=== PATIENT | female | born 1935 | race Caucasian/White ===

== ENCOUNTER 2019-11-19 18:16 | Outpatient (CLI) | payer MEDICARE, SELFPAY ==
--- NOTE | ~2019-11-19 | XR_ITS ---
EXAMINATION: XR foot RT min 3V DATE: 11/19/2019 18:51 INDICATION: Right foot pain TECHNIQUE: Dorsoplantar, lateral, and 2 oblique views of the right foot were obtained. COMPARISON: None. FINDINGS: The bones are osteopenic which limits sensitivity for fracture. 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 Mild osteoarthritis is seen at the first metatarsophalangeal joint as well as in multiple interphalangeal joints. A plantar calcaneal enthesophyte is noted. IMPRESSION: 1. Possible nondisplaced fracture of the first distal phalanx, sensitivity limited by osteopenia. Reviewed, dictated and finalized at location A. PER/RECEIVER IMPRESSION: 1. Possible nondisplaced fracture of the first distal phalanx, sensitivity limi celena by osteopenia.
== END 2019-11-19 18:17 | disposition home or self-care (01) ==
PROVIDERS: PCP Internal Medicine; Visit Provider Internal Medicine
DX: M79.674 Pain in right toe(s) (principal)
CPT/HCPCS: 73630

== ENCOUNTER 2020-03-18 15:11 | Outpatient (CLI) | payer MEDICARE, SELFPAY ==
--- NOTE | 2020-03-18 15:30 | ECG_ITS ---
Measurements Intervals [place] Rate: 100 P: [place]: 0 QRS: -2 QRSD: 93 T: 28 QT: 335 QTc: 432 Interpretive Statements ATRIAL FIBRILLATION WITH RAPID VENTRICULAR RESPONSE LOW QRS VOLTAGE IN PRECORDIAL LEADS INCOMPLETE RIGHT BUNDLE BRANCH BLOCK BORDERLINE R WAVE PROGRESSION, ANTERIOR LEADS MINIMAL Q WAVES- INFERIOR LEADS ABNORMAL ECG Electronically Signed On 03-18-2020 15:52:20 CDT by Rui Garcia D.O.
== END 2020-03-18 15:12 | disposition home or self-care (01) ==
LOC: CHSCARD 15:14
PROVIDERS: PCP Internal Medicine; Visit Provider Internal Medicine Cardiovascular Disease
DX: Z51.81 Encounter for therapeutic drug level monitoring (principal)
CPT/HCPCS: 93005

== ENCOUNTER 2020-04-16 12:32 | Outpatient (CLI) | payer MEDICARE, SELFPAY ==
--- NOTE | 2020-04-16 12:50 | ECG_ITS ---
Measurements Intervals [place] Rate: 100 P: [place]: 0 QRS: 22 QRSD: 89 T: 17 QT: 350 QTc: 452 Interpretive Statements ATRIAL FIBRILLATION WITH RAPID VENTRICULAR RESPONSE RSR' IN V1 OR V2, CONSIDER RIGHT VENTRICULAR HYPERTROPHY OR RIGHT VCD LOW QRS VOLTAGE IN PRECORDIAL LEADS BORDERLINE R WAVE PROGRESSION, ANTERIOR LEADS BASELINE ARTIFACT- III, AVF ABNORMAL ECG Electronically Signed On 04-16-2020 12:58:18 CDT by Rui Garcia D.O.
== END 2020-04-16 12:33 | disposition home or self-care (01) ==
LOC: CHSCARD 12:35
PROVIDERS: PCP Internal Medicine; Visit Provider Internal Medicine Cardiovascular Disease
DX: I48.19 Other persistent atrial fibrillation (principal)
CPT/HCPCS: 93005

== ENCOUNTER 2020-07-26 10:48 | Outpatient (NON) | payer MEDICARE, SELFPAY ==
[2020-07-26 11:20] LABS: Hematocrit 37.2 % (35.0-42.0); Mean Corpuscular HGB Conc 32.3 g/dL (32.0-36.0); Mean Corpuscular Hemoglobin 29.6 pg (27.0-31.0); Mean Corpuscular Volume 91.9 fL (78.0-102.0); Mean Platelet Volume 11.1 fl (9.2-11.8); Platelet Count Result 134 K/mm3 (150-420); Red Blood Count 4.05 M/mm3 (4.20-5.40); Red Cell Distribution Width 14.1 % (11.6-14.4); White Blood Count 3.6 K/mm3 (4.8-10.8)
[2020-07-26 11:37] LABS: Alanine Aminotransferase 49 U/L (14-59); Albumin Level 3.4 g/dL (3.4-5.0); Alkaline Phosphatase 117 U/L (46-116); Anion Gap 9 mmol/L (8-16); Aspartate Amino Transferase 36 U/L (15-37); Bilirubin,Total 0.7 mg/dL (0.00-1.00); Blood Urea Nitrogen 25 mg/dL (7-18); Calcium 9.1 mg/dL (8.5-10.1); Carbon Dioxide 27 mmol/L (21-32); Chloride 107 mmol/L (98-108); Estimated Glomerular Filt Rate > 60; Glucose 93 mg/dL (70-99); Osmolality Calculated 300 mOsm/kg (285-295); Potassium 4.2 mmol/L (3.5-5.1); Sodium 143 mmol/L (136-145); Total Protein 6.1 g/dL (6.4-8.2)
[2020-07-26 11:45] LABS: BNP 207 pg/mL (0-100)
[2020-07-26 12:18] LABS: Band Neutrophils Percent 1 % (0-6); Basophils Percent Manual 0 % (0-1); Eosinophils Percent Manual 3 % (1-6); Lymphocytes Absolute Manual 0.64 K/mm3 (1.1-4.5); Lymphocytes Percent Manual 18 % (18-44); Monocytes Absolute Manual 0.21 K/mm3 (0.1-0.90); Monocytes Percent Manual 6 % (3-9); Neutrophils Absolute Manual 2.62 K/mm3 (1.7-7.2); Neutrophils Percent Manual 72 % (46-73); Platelet Estimate Adequate (Adequate); Total Cells Counted 100
== END 2020-07-26 10:49 ==
LOC: CHSLAB 10:49
PROVIDERS: Visit Provider Internal Medicine
DX: I50.9 Heart failure, unspecified (principal); D64.9 Anemia, unspecified; R94.5 Abnormal results of liver function studies
CPT/HCPCS: 36415; 80053; 83880; 85025; 85055

== ENCOUNTER 2021-02-07 09:16 | Outpatient (NON) | payer MEDICARE, SELFPAY ==
[2021-02-07 09:55] LABS: Basophils Absolute Auto 0.01 K/mm3 (0.00-0.10); Basophils Percent Auto 0.2 % (0.0-1.0); Eosinophils Absolute Auto 0.15 K/mm3 (0.02-0.50); Eosinophils Percent Auto 2.9 % (1.0-6.0); Hematocrit 38.9 % (35.0-42.0); Hemoglobin 12.8 g/dL (11.7-13.8); Immature Granulocyte Absolute 0.01 K/mm3 (0.00-0.00); Immature Granulocyte Percent A 0.2 % (0.0-0.0); Lymphocytes Absolute Auto 1.11 K/mm3 (1.10-4.50); Lymphocytes Percent Auto 21.8 % (18.0-42.0); Mean Corpuscular HGB Conc 32.9 g/dL (32.0-36.0); Mean Corpuscular Hemoglobin 30.7 pg (27.0-31.0); Mean Corpuscular Volume 93.3 fL (78.0-102.0); Mean Platelet Volume 12.2 fl (9.2-11.8); Monocytes Absolute Auto 0.57 K/mm3 (0.10-0.90); Monocytes Percent Auto 11.2 % (2.0-11.0); Neutrophils Absolute Auto 3.3 K/mm3 (1.7-7.2); Neutrophils Percent Auto 63.7 % (50.0-70.0); Platelet Count Result 129 K/mm3 (150-420); Red Blood Count 4.17 M/mm3 (4.20-5.40); White Blood Count 5.1 K/mm3 (4.8-10.8)
[2021-02-07 10:28] LABS: Alanine Aminotransferase 27 U/L (14-59); Albumin Level 3.3 g/dL (3.4-5.0); Alkaline Phosphatase 89 U/L (46-116); Anion Gap 6 mmol/L (8-16); Aspartate Amino Transferase 18 U/L (15-37); Bilirubin,Total 0.7 mg/dL (0.00-1.00); Blood Urea Nitrogen 28 mg/dL (7-18); Calcium 8.9 mg/dL (8.5-10.1); Carbon Dioxide 28 mmol/L (21-32); Chloride 103 mmol/L (98-108); Digoxin 0.5 ng/mL (0.9-2.0); Estimated Glomerular Filt Rate > 60; Glucose 78 mg/dL (70-99); NT Pro B Type Natriuretic Pept 921 pg/mL (0-450); Osmolality Calculated 288 mOsm/kg (285-295); Phosphorus 3.3 mg/dL (2.6-4.7); Potassium 3.5 mmol/L (3.5-5.1); Sodium 137 mmol/L (136-145)
== END 2021-02-07 09:17 | disposition home or self-care (01) ==
LOC: CHSLAB 09:17
PROVIDERS: PCP Internal Medicine; Visit Provider Internal Medicine
DX: I48.20 Chronic atrial fibrillation, unspecified (principal); I11.0 Hypertensive heart disease with heart failure; I50.9 Heart failure, unspecified; D64.9 Anemia, unspecified
CPT/HCPCS: 36415; 80053; 80162; 83735; 83880; 84100; 85025

== ENCOUNTER 2021-02-21 13:31 | Outpatient (CLI) | payer MEDICARE, SELFPAY ==
--- NOTE | ~2021-02-21 | DEXA_ITS ---
Bone Density Report Name: Doreen Hedrick Age: 85 Sex: Female Ethnicity: White Date of : 1935 Indication: postmenopausal; screening for osteoporosis; height loss; prior fracture; hysterectomy; Referring Provider: Mina Dillard Study: Bone densitometry was performed. Exam Date: February 21, 2021 Accession number: [id number] Bone Density: Region BMD T-score Z-score Classification AP Spine(L1, L2) 0.871 -1.0 1.7 Normal Femoral Neck (Left) 0.440 -3.7 -1.2 Osteoporosis Total Hip (Left) 0.496 -3.7 -1.3 Osteoporosis World Health Organization criteria for BMD impression classify patients as: Normal (T-score at or above -1.0), Osteopenia (T-score between -1.0 and -2.5), or Osteoporosis (T-score at or below -2.5). 10-year Fracture Risk: FRAX not reported because: Some T-score for Spine Total or Hip Total or Femoral Neck at or below -2.5 Prior hip or vertebral fracture Clinical Information Provided by Patient: Have had a previous hip or vertebral fracture Has had a low trauma fracture Has used the following medications: Calcium Has the following medical conditions: Hysterectomy Patient maximum height was 69 Menopause Age: 49 No regular weight bearing exercise Does not regularly consume dairy products Drinks caffeinated beverages Onset of menses at age 9 Number of children 1 Impression: The patient has established osteoporosis, based on the Left Total Hip T-score and the existence of a prior fracture. The patient has risk factors, including: previous fracture. Discussion: HIGH RISK OF FRACTURE. BONE DENSITY IS UNDESIRABLY LOW AT ONE OR MORE SKELETAL SITES, CONSISTENT WITH POSTMENOPAUSAL OSTEOPOROSIS. This patient's lowest T-score, in a patient who has previously fractured, meets the World Health Organization's (WHO) criteria for severe osteoporosis. In untreated patients, the risk of osteoporotic fracture increases approximately two-fold for each 1.0 SD decrease in T-score. Low bone density is not the only risk factor for fracture; also consider factors such as patient's age, frailty or poor health, risk of falling, risk of injury, previous osteoporotic fracture, family history of osteoporosis, cigarette smoking, low body weight, etc. Not everyone with low bone mineral density has osteoporosis; osteomalacia and other metabolic bone disorders should also be considered. Patients who have osteoporosis should be evaluated for specific diseases and conditions (secondary causes) that may cause or contribute to bone loss. The [place] [employer] Endocrinologists (AACE) and National Osteoporosis Foundation (NOF) recommend pharmacologic intervention for all postmenopausal women with a previous hip or vertebral fracture and a T-score in this range. The patient should follow a healthful lifestyle (good nutrition with adequate calcium and vitamin D, an
== END 2021-02-21 13:32 | disposition home or self-care (01) ==
LOC: CHSIMG 13:33
PROVIDERS: PCP Internal Medicine; Visit Provider Internal Medicine
DX: Z78.0 Asymptomatic menopausal state (principal)
CPT/HCPCS: 77080

== ENCOUNTER 2021-04-14 14:07 | Outpatient (CLI) | payer MEDICARE, SELFPAY ==
[2021-04-14 14:35] VITALS: BP 148/67; PULSE 71; RESP 16; TEMP 36.8; O2SAT 95; BMI 24.1
[2021-04-14] MEDS: DENOSUMAB 60 MG/ML SYRINGE SUB-Q (14:39)
--- NOTE | 2021-04-14 14:54 | PC.NURSE ---
[id number] Patient here for 1st Prolia injection. Reviewed purpose and side effects of Prolia. Education sheets given to patient. Prolia 60mg given SQ left upper posterior arm. Patient tolerated well. Patient waited 15 minutes after injection for possible side effects. No side effects noted. No redness or warmth at injection site. Patient denies any side effects. Patient safely left OP treatment area via wheelchair in the care of her personalization specialist.
== END 2021-04-14 14:08 | disposition home or self-care (01) ==
LOC: CHSTREATRM 14:11
PROVIDERS: PCP Internal Medicine; Visit Provider Internal Medicine
DX: M81.0 Age-related osteoporosis without current pathological fracture (principal)
CPT/HCPCS: 96372; J0897

== ENCOUNTER 2021-08-10 09:51 | Outpatient (NON) | payer MEDICARE, SELFPAY ==
[2021-08-10 10:12] LABS: Basophils Absolute Auto 0.03 K/mm3 (0.00-0.10); Basophils Percent Auto 0.6 % (0.0-1.0); Eosinophils Absolute Auto 0.41 K/mm3 (0.02-0.50); Eosinophils Percent Auto 7.6 % (1.0-6.0); Hematocrit 45.1 % (35.0-42.0); Hemoglobin 14.7 g/dL (11.7-13.8); Immature Granulocyte Absolute 0.02 K/mm3 (0.00-0.00); Immature Granulocyte Percent A 0.4 % (0.0-0.0); Lymphocytes Absolute Auto 1.22 K/mm3 (1.10-4.50); Lymphocytes Percent Auto 22.6 % (18.0-42.0); Mean Corpuscular HGB Conc 32.6 g/dL (32.0-36.0); Mean Corpuscular Hemoglobin 29.9 pg (27.0-31.0); Mean Corpuscular Volume 91.7 fL (78.0-102.0); Mean Platelet Volume 11.8 fl (9.2-11.8); Monocytes Absolute Auto 0.58 K/mm3 (0.10-0.90); Monocytes Percent Auto 10.7 % (2.0-11.0); Neutrophils Absolute Auto 3.2 K/mm3 (1.7-7.2); Neutrophils Percent Auto 58.1 % (50.0-70.0); Platelet Count Result 159 K/mm3 (150-420); Red Blood Count 4.92 M/mm3 (4.20-5.40); Red Cell Distribution Width 14.2 % (11.6-14.4); White Blood Count 5.4 K/mm3 (4.8-10.8)
[2021-08-10 10:33] LABS: Alanine Aminotransferase 33 U/L (14-59); Albumin Level 3.7 g/dL (3.4-5.0); Alkaline Phosphatase 75 U/L (46-116); Anion Gap 11 mmol/L (8-16); Aspartate Amino Transferase 19 U/L (15-37); Bilirubin,Total 0.8 mg/dL (0.00-1.00); Blood Urea Nitrogen 24 mg/dL (7-18); Calcium 8.2 mg/dL (8.5-10.1); Carbon Dioxide 27 mmol/L (21-32); Chloride 106 mmol/L (98-108); Digoxin 0.6 ng/mL (0.9-2.0); Estimated Glomerular Filt Rate 60; Glucose 120 mg/dL (70-99); NT Pro B Type Natriuretic Pept 970 pg/mL (0-450); Osmolality Calculated 303 mOsm/kg (285-295); Potassium 4.4 mmol/L (3.5-5.1); Sodium 144 mmol/L (136-145); Total Protein 7.3 g/dL (6.4-8.2)
== END 2021-08-10 09:52 | disposition home or self-care (01) ==
LOC: CHSLAB 09:54
PROVIDERS: Visit Provider Internal Medicine
DX: I11.0 Hypertensive heart disease with heart failure (principal); I50.9 Heart failure, unspecified
CPT/HCPCS: 80053; 80162; 83880; 85025

== ENCOUNTER 2022-02-14 11:54 | Outpatient (CLI) | payer MEDICARE, SELFPAY ==
[2022-02-14 12:32] LABS: Alanine Aminotransferase 17 U/L (6-35); Alkaline Phosphatase 88 U/L (38-126); Anion Gap 7 mmol/L (8-16); Aspartate Amino Transferase 27 U/L (14-36); Bilirubin,Total 1.3 mg/dL (0.2-1.3); Blood Urea Nitrogen 30 mg/dL (7-17); Calcium 9.1 mg/dL (8.4-10.2); Carbon Dioxide 25 mmol/L (22-30); Chloride 107 mmol/L (98-107); Estimated Glomerular Filt Rate > 60; Glucose 107 mg/dL (65-110); Potassium 3.9 mmol/L (3.4-5.0); Sodium 139 mmol/L (137-145)
[2022-02-14 12:34] LABS: Hematocrit 36.9 % (37.0-47.0); Hemoglobin 12.1 g/dL (12.0-15.0); Mean Corpuscular HGB Conc 32.8 g/dl (32-36); Mean Corpuscular Hemoglobin 28.2 pg (26-34); Mean Platelet Volume 10.3 fl (7.4-10.4); Platelet Count Result 249 k/mm3 (150-375); Red Blood Count 4.29 M/mm3 (4.2-5.4); Red Cell Distribution Width 12.6 % (11.5-14.5); White Blood Count 4.2 K/mm3 (4.5-10.0)
[2022-02-14 13:26] LABS: Digoxin 0.6 ng/mL (0.8-2.0)
== END 2022-02-14 11:55 | disposition home or self-care (01) ==
LOC: ANHLAB 12:01
PROVIDERS: PCP Internal Medicine; Visit Provider Internal Medicine Cardiovascular Disease
DX: I48.11 Longstanding persistent atrial fibrillation (principal); Z79.01 Long term (current) use of anticoagulants; Z51.81 Encounter for therapeutic drug level monitoring
CPT/HCPCS: 36415; 80053; 80162; 85025; 85027

== ENCOUNTER 2022-04-06 09:51 | Outpatient (CLI) | payer MEDICARE, SELFPAY ==
[2022-04-06] MEDS: DENOSUMAB 60 MG/ML SYRINGE SUB-Q (10:08)
== END 2022-04-06 09:52 | disposition home or self-care (01) ==
LOC: CHSTREATRM 09:54
PROVIDERS: PCP Internal Medicine; Visit Provider Internal Medicine
DX: M81.0 Age-related osteoporosis without current pathological fracture (principal)
CPT/HCPCS: 96372; J0897

== ENCOUNTER 2022-09-18 10:23 | Outpatient (NON) | payer MEDICARE, SELFPAY ==
[2022-09-18 10:58] LABS: Basophils Absolute Auto 0.02 K/mm3 (0.00-0.10); Basophils Percent Auto 0.3 % (0.0-1.0); Eosinophils Absolute Auto 0.32 K/mm3 (0.02-0.50); Eosinophils Percent Auto 5.1 % (1.0-6.0); Hematocrit 40.2 % (35.0-42.0); Hemoglobin 13.3 g/dL (11.7-13.8); Immature Granulocyte Absolute 0.02 K/mm3 (0.00-0.00); Immature Granulocyte Percent A 0.3 % (0.0-0.0); Lymphocytes Absolute Auto 1.09 K/mm3 (1.10-4.50); Lymphocytes Percent Auto 17.5 % (18.0-42.0); Mean Corpuscular HGB Conc 33.1 g/dL (32.0-36.0); Mean Corpuscular Hemoglobin 31.5 pg (27.0-31.0); Mean Corpuscular Volume 95.3 fL (78.0-102.0); Mean Platelet Volume 11.4 fl (9.2-11.8); Monocytes Absolute Auto 0.54 K/mm3 (0.10-0.90); Monocytes Percent Auto 8.7 % (2.0-11.0); Neutrophils Absolute Auto 4.3 K/mm3 (1.7-7.2); Neutrophils Percent Auto 68.1 % (50.0-70.0); Platelet Count Result 165 K/mm3 (150-420); Red Blood Count 4.22 M/mm3 (4.20-5.40); Red Cell Distribution Width 13.3 % (11.6-14.4); White Blood Count 6.2 K/mm3 (4.8-10.8)
[2022-09-18 11:16] LABS: Alanine Aminotransferase 30 U/L (14-59); Albumin Level 3.3 g/dL (3.4-5.0); Alkaline Phosphatase 81 U/L (46-116); Anion Gap 11 mmol/L (8-16); Aspartate Amino Transferase 20 U/L (15-37); Bilirubin,Total 0.6 mg/dL (0.00-1.00); Blood Urea Nitrogen 28 mg/dL (7-18); Calcium 8.3 mg/dL (8.5-10.1); Carbon Dioxide 26 mmol/L (21-32); Chloride 105 mmol/L (98-108); Digoxin 0.5 ng/mL (0.9-2.0); Estimated Glomerular Filt Rate > 60; Glucose 109 mg/dL (70-99); NT Pro B Type Natriuretic Pept 1101 pg/mL (0-450); Osmolality Calculated 300 mOsm/kg (285-295); Potassium 4.1 mmol/L (3.5-5.1); Sodium 142 mmol/L (136-145); Total Protein 6.3 g/dL (6.4-8.2)
== END 2022-09-18 10:24 | disposition home or self-care (01) ==
LOC: CHSLAB 10:29
PROVIDERS: Visit Provider Internal Medicine
DX: I50.9 Heart failure, unspecified (principal); Z79.899 Other long term (current) drug therapy
CPT/HCPCS: 80053; 80162; 83735; 83880; 85025

== ENCOUNTER 2022-11-09 11:39 | Outpatient (CLI) | payer MEDICARE, SELFPAY ==
[2022-11-09 11:50] VITALS: BMI 24.2
[2022-11-09 12:08] VITALS: BP 121/72; PULSE 68; RESP 14; O2SAT 98
[2022-11-09] MEDS: DENOSUMAB 60 MG/ML SYRINGE SUB-Q (12:08)
--- NOTE | 2022-11-09 12:10 | PC.NURSE ---
Patient here for q 6 month Prolia injection. Education given. Reports having no issues last few times she had this. Prolia injection administered. SEE MAR. Tolerated well. Safe exit of hospital per wc with family member. Will be notified in May 2023 to scheduled next Prolia injection.
== END 2022-11-09 11:40 | disposition home or self-care (01) ==
LOC: CHSTREATRM 11:43
PROVIDERS: PCP Internal Medicine; Visit Provider Internal Medicine
DX: M81.0 Age-related osteoporosis without current pathological fracture (principal)
CPT/HCPCS: 96372; J0897

== ENCOUNTER 2023-03-26 10:25 | Outpatient (NON) | payer MEDICARE, SELFPAY ==
[2023-03-26 11:10] LABS: Basophils Absolute Auto 0.02 K/mm3 (0.00-0.10); Basophils Percent Auto 0.5 % (0.0-1.0); Eosinophils Absolute Auto 0.13 K/mm3 (0.02-0.50); Eosinophils Percent Auto 2.9 % (1.0-6.0); Hematocrit 42.5 % (35.0-42.0); Hemoglobin 13.7 g/dL (11.7-13.8); Immature Granulocyte Absolute 0.01 K/mm3 (0.00-0.00); Immature Granulocyte Percent A 0.2 % (0.0-0.0); Lymphocytes Absolute Auto 1.01 K/mm3 (1.10-4.50); Lymphocytes Percent Auto 22.9 % (18.0-42.0); Mean Corpuscular HGB Conc 32.2 g/dL (32.0-36.0); Mean Corpuscular Hemoglobin 30.6 pg (27.0-31.0); Mean Corpuscular Volume 95.1 fL (78.0-102.0); Mean Platelet Volume 11.9 fl (9.2-11.8); Monocytes Absolute Auto 0.45 K/mm3 (0.10-0.90); Monocytes Percent Auto 10.2 % (2.0-11.0); Neutrophils Absolute Auto 2.8 K/mm3 (1.7-7.2); Neutrophils Percent Auto 63.3 % (50.0-70.0); Platelet Count Result 150 K/mm3 (150-420); Red Blood Count 4.47 M/mm3 (4.20-5.40); Red Cell Distribution Width 13.1 % (11.6-14.4); White Blood Count 4.4 K/mm3 (4.8-10.8)
[2023-03-26 11:42] LABS: Alanine Aminotransferase 30 U/L (14-59); Albumin Level 3.7 g/dL (3.4-5.0); Alkaline Phosphatase 71 U/L (46-116); Anion Gap 13 mmol/L (8-16); Aspartate Amino Transferase 21 U/L (15-37); Bilirubin,Total 0.8 mg/dL (0.00-1.00); Blood Urea Nitrogen 24 mg/dL (7-18); Calcium 8.8 mg/dL (8.5-10.1); Carbon Dioxide 25 mmol/L (21-32); Chloride 108 mmol/L (98-108); Digoxin 0.4 ng/mL (0.9-2.0); Estimated Glomerular Filt Rate > 60; Glucose 91 mg/dL (70-99); Magnesium 2.1 mg/dL (1.8-2.4); NT Pro B Type Natriuretic Pept 814 pg/mL (0-450); Osmolality Calculated 306 mOsm/kg (285-295); Phosphorus 3.2 mg/dL (2.6-4.7); Potassium 4.2 mmol/L (3.5-5.1); Sodium 146 mmol/L (136-145); Total Protein 6.6 g/dL (6.4-8.2)
== END 2023-03-26 10:26 | disposition home or self-care (01) ==
PROVIDERS: Visit Provider Internal Medicine
DX: I50.9 Heart failure, unspecified (principal); I10 Essential (primary) hypertension; I48.91 Unspecified atrial fibrillation
CPT/HCPCS: 80053; 80162; 83735; 83880; 84100; 85025

== ENCOUNTER 2023-09-13 09:31 | Outpatient (NON) | payer MEDICARE, SELFPAY ==
[2023-09-13 09:47] LABS: Appearance Urine Clear (Clear); Bilirubin Urine Negative (Negative); Blood Urine Negative (Negative); Color Urine Yellow (Yellow); Glucose Urine UA Negative (Negative); Ketones Urine Negative (Negative); Leukocyte Esterase Ur Negative LEU/UL (Negative); Nitrate Urine Positive (Negative); Protein Urine Negative (Negative); Specific Grav Ur >= 1.030 (1.010-1.020); Urobilinogen Urine 0.2 mg/dL (0.2-1.0); pH Urine 5.5 (5.0-8.0)
[2023-09-13 09:48] LABS: Basophils Absolute Auto 0.02 K/mm3 (0.00-0.10); Basophils Percent Auto 0.5 % (0.0-1.0); Eosinophils Absolute Auto 0.17 K/mm3 (0.02-0.50); Eosinophils Percent Auto 3.9 % (1.0-6.0); Hemoglobin 12.8 g/dL (11.7-13.8); Immature Granulocyte Absolute 0.02 K/mm3 (0.00-0.00); Immature Granulocyte Percent A 0.5 % (0.0-0.0); Immature Platelet Fraction Pct 5.7 % (1.0-7.0); Lymphocytes Absolute Auto 1.01 K/mm3 (1.10-4.50); Lymphocytes Percent Auto 23.4 % (18.0-42.0); Mean Corpuscular Hemoglobin 30.2 pg (27.0-31.0); Mean Corpuscular Volume 94.3 fL (78.0-102.0); Mean Platelet Volume 12.2 fl (9.2-11.8); Monocytes Absolute Auto 0.48 K/mm3 (0.10-0.90); Monocytes Percent Auto 11.1 % (2.0-11.0); Neutrophils Absolute Auto 2.6 K/mm3 (1.7-7.2); Neutrophils Percent Auto 60.6 % (50.0-70.0); Platelet Count Result 131 K/mm3 (150-420); Red Blood Count 4.24 M/mm3 (4.20-5.40); White Blood Count 4.3 K/mm3 (4.8-10.8)
[2023-09-13 09:55] LABS: Add Urine Microscopic? YES; Bacteria Urine 4+ /hpf; RBC Urine None seen /hpf (0-2); Squamous Epithelial Cell Urine Rare /hpf (Few); WBC Urine 0-5 /hpf (0-3)
[2023-09-13 10:17] LABS: Alanine Aminotransferase 34 U/L (14-59); Albumin Level 3.5 g/dL (3.4-5.0); Alkaline Phosphatase 88 U/L (46-116); Anion Gap 2 mmol/L (8-16); Aspartate Amino Transferase 39 U/L (15-37); Bilirubin,Total 0.6 mg/dL (0.00-1.00); Blood Urea Nitrogen 24 mg/dL (7-18); Carbon Dioxide 33 mmol/L (21-32); Chloride 102 mmol/L (98-108); Digoxin 0.5 ng/mL (0.9-2.0); Estimated Glomerular Filt Rate > 60; Glucose 93 mg/dL (70-99); Magnesium 2.2 mg/dL (1.8-2.4); NT Pro B Type Natriuretic Pept 1144 pg/mL (0-450); Osmolality Calculated 288 mOsm/kg (285-295); Phosphorus 3.8 mg/dL (2.6-4.7); Sodium 137 mmol/L (136-145); Total Protein 6.2 g/dL (6.4-8.2)
== END 2023-09-13 09:32 | disposition home or self-care (01) ==
LOC: CHSLAB 09:32
PROVIDERS: Visit Provider Internal Medicine
DX: I48.11 Longstanding persistent atrial fibrillation (principal); D64.9 Anemia, unspecified; I10 Essential (primary) hypertension; R82.90 Unspecified abnormal findings in urine; I50.9 Heart failure, unspecified
CPT/HCPCS: 36415; 80053; 80162; 81001; 83735; 83880; 84100; 85025; 85055; 87077; 87086; 87088; 87186

== ENCOUNTER 2023-09-18 11:17 | Outpatient (CLI) | payer MEDICARE, SELFPAY ==
[2023-09-18 11:25] VITALS: BMI 24.9
[2023-09-18 11:26] VITALS: BP 132/70; PULSE 68; RESP 14; TEMP 36.6; O2SAT 97
[2023-09-18] MEDS: DENOSUMAB 60 MG/ML SYRINGE SUB-Q (11:30)
--- NOTE | 2023-09-18 12:02 | PC.NURSE ---
Patient here for q 6 month Prolia injection. Education given. No concerns voiced. Prolia injection administered. SEE MAR. Safe exit of hospital per wc and dtr. Will Return 03/20/23 at 1100 for next injection.
== END 2023-09-18 11:18 | disposition home or self-care (01) ==
LOC: CHSTREATRM 11:19
PROVIDERS: PCP Internal Medicine; Visit Provider Internal Medicine
DX: M81.0 Age-related osteoporosis without current pathological fracture (principal)
CPT/HCPCS: 96372; J0897

== ENCOUNTER 2023-09-20 12:37 | Emergency (ER) | payer MEDICARE, SELFPAY ==
--- NOTE | ~2023-09-20 | CT_ITS ---
EXAMINATION: CT abdomen pelvis w con DATE: 09/20/2023 14:18 INDICATION: Upper abdominal pain. TECHNIQUE: Computed tomography (CT) of the abdomen and pelvis was performed with 100 mL Omnipaque 350 intravenous contrast. Automated exposure control and iterative reconstruction technique were employe d. The dose-length product was 702.49 mGy-cm. COMPARISON: None. FINDINGS: The visualized portions of the lung bases demonstrate mild atelectasis. No pleural effusion . Cardiomegaly is noted. There are coronary artery calcifications. No pericardial effusion. The liver , spleen, gallbladder, and adrenal glands are normal. There is an 8 mm cyst in the tail of the pancre as, likely benign. There is cortical thinning of the kidneys. There are cysts in the kidneys measurin g up to 2.3 cm on the left. There is a 12 mm mass in right kidney measuring soft tissue attenuation. 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 There is diver ticulosis of the colon without evidence of diverticulitis. The appendix is not visualized. There is c alcified atherosclerosis of the aorta and many of the other arteries. There are no pathologically enl arged lymph nodes. There is no free intraperitoneal fluid. There is a right hip arthroplasty. There a re changes of posterior fusion procedure at L4-L5. There is severe thoracic and lumbar spondylosis. T here are chronic burst fractures of T12 and L1. There is a chronic compression fracture of T11. IMPRESSION: 1. 12 mm right kidney mass, which may be a hemorrhagic cyst or less likely neoplasm. Consider abdomen CT or MRI without and with contrast. Reviewed, dictated and finalized at location A. UCER ARBORIST MANAGER IMPRESSION: 1. 12 mm right kidney mass, which may be a hemorrhagic cyst or less likely neop lasm. Consider abdomen CT or MRI without and with contrast.
[2023-09-20 12:37] VITALS: BP 164/80; PULSE 73; RESP 18; TEMP 36.6; O2SAT 98
--- NOTE | 2023-09-20 13:04 | ECG_ITS ---
Measurements Intervals [place] Rate: 75 P: [place]: 0 QRS: -8 QRSD: 82 T: -12 QT: 371 QTc: 415 Interpretive Statements ATRIAL FIBRILLATION LOW QRS VOLTAGE IN PRECORDIAL LEADS [QRS DEFLECTION < 1.0 mV IN CHEST LEADS] MINIMAL VOLTAGE CRITERIA FOR LVH, CONSIDER NORMAL VARIANT [MEETS CRITERIA IN ONE OF: R(aVL), S(V1), R(V5), R(V5/V6)+S(V1)] ANTERIOR MYOCARDIAL INFARCTION , OF INDETERMINATE AGE [40+ ms Q WAVE AND/OR ST/T ABNORMALITY IN V3/V4] INFERIOR MYOCARDIAL INFARCTION , OF INDETERMINATE AGE [40+ ms Q WAVE AND/OR ST/T ABNORMALITY IN II/aVF] ABNORMAL ECG COMPARED TO ECG 04/16/2020 12:51:41 MYOCARDIAL INFARCT FINDING NOW PRESENT Electronically Signed On 09-20-2023 14:11:18 ASSOCIATE DATA SCIENTIST by Timmy Carey M.D.
[2023-09-20 13:19] LABS: Basophils Absolute Auto 0.02 K/mm3 (0.00-0.10); Basophils Percent Auto 0.3 % (0.0-1.0); Eosinophils Absolute Auto 0.11 K/mm3 (0.02-0.50); Eosinophils Percent Auto 1.7 % (1.0-6.0); Hematocrit 40.6 % (35.0-42.0); Immature Granulocyte Absolute 0.03 K/mm3 (0.00-0.00); Immature Granulocyte Percent A 0.5 % (0.0-0.0); Immature Platelet Fraction Pct 4.6 % (1.0-7.0); Lymphocytes Absolute Auto 0.85 K/mm3 (1.10-4.50); Lymphocytes Percent Auto 13.2 % (18.0-42.0); Mean Corpuscular Hemoglobin 30.7 pg (27.0-31.0); Mean Platelet Volume 11.3 fl (9.2-11.8); Monocytes Absolute Auto 0.61 K/mm3 (0.10-0.90); Monocytes Percent Auto 9.5 % (2.0-11.0); Neutrophils Absolute Auto 4.8 K/mm3 (1.7-7.2); Neutrophils Percent Auto 74.8 % (50.0-70.0); Platelet Count Result 124 K/mm3 (150-420); Red Blood Count 4.23 M/mm3 (4.20-5.40); Red Cell Distribution Width 14.3 % (11.6-14.4); White Blood Count 6.4 K/mm3 (4.8-10.8)
[2023-09-20 13:31] LABS: INR 1.5; Partial Thromboplastin Time 58.7 SEC (23.90-30.70); Prothrombin Time 15.5 Seconds (9.50-12.10)
[2023-09-20] MEDS: KETOROLAC 30 MG/ML VIAL (*BKC) 15 MG IV PUSH (13:40)
[2023-09-20] MEDS: PANTOPRAZOLE SODIUM IV 40 MG VIAL 80 MG IV PUSH (13:41)
[2023-09-20 13:46] LABS: Alanine Aminotransferase 55 U/L (14-59); Albumin Level 3.5 g/dL (3.4-5.0); Alkaline Phosphatase 98 U/L (46-116); Anion Gap 5 mmol/L (8-16); Aspartate Amino Transferase 33 U/L (15-37); Bilirubin,Total 1.1 mg/dL (0.00-1.00); Blood Urea Nitrogen 28 mg/dL (7-18); CRP 2.5 mg/dL (0.0-0.9); Calcium 8.8 mg/dL (8.5-10.1); Carbon Dioxide 32 mmol/L (21-32); Chloride 102 mmol/L (98-108); Estimated CRCL calculation 42 ml/min; Estimated Glomerular Filt Rate > 60; Glucose 116 mg/dL (70-99); Lipase 49 U/L (16-77); Osmolality Calculated 294 mOsm/kg (285-295); Potassium 4.2 mmol/L (3.5-5.1); Sodium 139 mmol/L (136-145); Troponin I 12.4 ng/L (0.00-60.4)
[2023-09-20 13:57] LABS: NT Pro B Type Natriuretic Pept 1169 pg/mL (0-450)
[2023-09-20 13:57] LABS: Appearance Urine Clear (Clear); Bilirubin Urine Negative (Negative); Blood Urine Trace-Intact (Negative); Color Urine Yellow (Yellow); Glucose Urine UA Negative (Negative); Ketones Urine Negative (Negative); Leukocyte Esterase Ur Negative LEU/UL (Negative); Nitrate Urine Negative (Negative); Protein Urine Trace (Negative); Specific Grav Ur 1.015 (1.010-1.020); pH Urine 7.5 (5.0-8.0)
[2023-09-20 14:06] LABS: Add Urine Microscopic? YES; RBC Urine 0-2 /hpf (0-2); WBC Urine 0-3 /hpf (0-3)
[2023-09-20 14:07] LABS: Bacteria Urine 2+ /hpf; Squamous Epithelial Cell Urine Rare /hpf (Few)
--- NOTE | 2023-09-20 14:46 | ED.ABDPAIN ---
HPI - Abdominal Pain General Chief Complaint: Abdominal Pain Stated Complaint: epigastric pain Time Seen by Provider: 09/20/23 12:47 Source: patient Mode of arrival: ambulatory Limitations: no limitations History of Present Illness HPI narrative: this is a an 79-year-old female from the [facility] Living with history of atrial fibrillation and reflux has been having periumbilical and suprapubic abdominal pain as well as some epigastric discomfort with no flank pain does have dysuria with no hematuria no nausea or vomiting with no shortness of breath no chest pain. MD elicited complaint: abdominal pain Pertinent past history: none Onset (ago): day(s) Pain Consistency: intermittent Location: epigastric, periumbilical and suprapubic Severity: moderate Pain scale (0-10): 6 Quality: aching Radiation: none Migration to: no migration Exacerbating factors: nothing Relieving factors: nothing Related Data Home Medications Medication Instructions Recorded Confirmed carvedilol 25 mg tablet 12.5 mg PO Q12H 10/15/19 09/20/23 digoxin 125 mcg (0.125 mg) tablet 125 mcg PO DAILY 10/15/19 09/20/23 docusate sodium 100 mg capsule 100 mg PO DAILY 10/15/19 09/20/23 furosemide 40 mg tablet 40 mg PO QAM 10/15/19 09/20/23 lisinopril 2.5 mg tablet 2.5 mg PO DAILY 10/15/19 09/20/23 magnesium oxide 400 mg (241.3 mg 400 mg PO DAILY 10/15/19 09/20/23 magnesium) tablet (MagOx) potassium chloride 20 mEq/15 mL 10 meq PO DAILY 10/15/19 09/20/23 oral liquid acetaminophen 500 mg tablet 1,000 mg PO TID 09/20/23 09/20/23 dabigatran etexilate 150 mg 150 mg PO BID 09/20/23 09/20/23 capsule (Pradaxa) polysaccharide iron complex 150 mg 150 mg PO DAILY 09/20/23 09/20/23 iron capsule (iFerex 150) sodium di- and 1 tablet PO TID 09/20/23 09/20/23 monophosphate-potassium phos monobasic 250 mg tablet (Phospho-Peg Neutral) Allergies Allergy/AdvReac Type Severity Reaction Status Date / Time adhesive tape Allergy Mild hives Verified 09/20/23 13:29 Penicillins Allergy Unknown LEGS AND Verified 09/20/23 13:29 ARMS TURNED PURPLE Review of Systems Review of Systems: All systems reviewed & are unremarkable except as noted in HPI and below PMFSH Past Medical History Medical History Congestive heart failure Heart disease Hypertension Surgical History Surgical History History of section History of hip replacement (~06/2019) Right bipolar History of lumbar surgery fusion with instrumentation Social History Social History Living arrangements: senior living Occupation/Education: retired Exam Const: General: no acute distress Nutritional Appearance: well nourished Orientation/consciousness: patient oriented x3 Limitations: no limitations Neck: Neck: normal visual inspection, no lymphadenopathy and no meningeal signs Chest: Chest palpation & inspection: normal inspection of the chest Resp: Effort & Inspection: normal respiratory effort Auscultation: clear to auscultation bilaterally Cardio: Rate: regular rate Rhythm: regular rhythm GI: GI Palp: Yes Soft to palpation and Yes Tenderness to palpation present (GI) : General: Yes bladder normal to palpation and Yes no CVA tenderness Urinary Catheter: Urinary Catheter: patent and draining Back/Spine/Pelvis: Back: no CVA tenderness Skin: General skin exam: normal color Rashes: no rashes Extrem: General: normal to inspection Psych: Mental Status: mental status grossly normal Course Course Emergency Course: Labs reviewed with patient and white count is within normal limits patient liver function tests within normal limits, patient received a CT scan which shows that there is 12mm mass that is needs to be investigated with an MRI. Otherwise patient continues to have s
[2023-09-20 15:27] VITALS: BP 148/81; PULSE 82; RESP 20; TEMP 36.7; O2SAT 98
== END 2023-09-20 15:29 | disposition home or self-care (01) ==
PROVIDERS: Emergency Provider Emergency Medicine; PCP Internal Medicine
DX: N39.0 Urinary tract infection, site not specified (principal); R10.33 Periumbilical pain; I48.91 Unspecified atrial fibrillation; I11.0 Hypertensive heart disease with heart failure; I50.9 Heart failure, unspecified; Z79.899 Other long term (current) drug therapy
CPT/HCPCS: 36415; 74177; 80053; 81001; 83605; 83690; 83880; 84484; 85025; 85055; 85610; 85730; 86140; 93005; 96374; 96375; 99284; C9113; J1885; Q9967

== ENCOUNTER 2023-09-24 02:44 | Emergency (ER) | payer MEDICARE, SELFPAY ==
--- NOTE | ~2023-09-24 | CT_ITS ---
CT of the Abdomen and Pelvis: Indication: Abdominal Technique: 2.5 mm axial scans were obtained through the abdomen and pelvis prior to and following fo llowing intravenous administration of 100 cc of Omnipaque 350. Dose reduction technique was used on t his scan by utilizing automated exposure control and iterative reconstruction technique. The dose-srikanth gth product (DLP) was 1495.82 mGy-cm. COMPARISON: 09/20/2023 Findings: Scans through the lung bases demonstrate minimal right pleural effusion with bibasilar sca rring or atelectasis. The liver, spleen, pancreas, gallbladder, and adrenal glands are within normal limits. Small bilatera l renal cysts are present, including small hyperdense cysts. There are atherosclerotic calcifications of the aorta. No lymphadenopathy. No bowel obstruction or bowel wall thickening. There is no evidence to suggest acute appendicitis. Images through the pelvis are degraded by streak artifact from right hip arthroplasty. Urinary bladde r grossly unremarkable. No definite pelvic mass seen. No ascites. Stable compression fractures of T11 , T12, and L1. Impression: Small hyperdense renal cysts. Stable compression fractures of T11, T12, L1. Reviewed, dictated and finalized at location . NTORY CHECKER Impression: Small hyperdense renal cysts. Stable compression fractures of T11, T12, L1.
--- NOTE | ~2023-09-24 | XR_ITS ---
Clinical Indication: Epigastric pain PA and lateral views of the chest: Comparison: 06/20/2019 Findings: There is probable linear bibasilar scarring or atelectasis. No pleural effusion or pneumoth orax. Cardiomediastinal silhouette is stable. Compression fracture of T7, T8, and T12 are present. Impression: Linear bibasilar scarring or atelectasis. Compression fractures of T7, T8, and T12. Reviewed, dictated and finalized at location . DRIVER Impression: Linear bibasilar scarring or atelectasis. Compression fractures of T7, T8, and T12.
[2023-09-24 02:45] VITALS: BP 168/92; PULSE 75; RESP 18; TEMP 36.8; O2SAT 94
--- NOTE | 2023-09-24 02:50 | ED.ABDPAIN ---
HPI - Abdominal Pain General Chief Complaint: Abdominal Pain Stated Complaint: ABD Pain Time Seen by Provider: 09/24/23 02:46 History of Present Illness HPI narrative: Patient is an 87 year old female with history of CHF, HTN, afib on pradaxa here with abdominal pain. Patient notes that on Sunday (6 days ago) she went to her PCPs office where they provided her with the COVID, Influenza and RSV vaccines. Daughter notes that 2 days later she began having significant epigastric abdominal pains. These abdominal pains prompted her to visit the ER. Workup was largely unremarkable here and she was started on treatment for a suspected UTI as well as pain medication. She notes some continued pain since that time which worsened to its maximum around 2 am today. She continues to state pain is around epigastric region to the periumbilical region and wraps around to bilateral flanks. She denies any associated nausea or vomiting. She is unsure of how her bowel movements have been, believes she may have had one yesterday which was small in consistency. She has been taking her prescribe Percocet consistently since discharge and it has not been helping, this medication has ran out. She does not believe she has had a fever. She denies dysuria at this time. Denies cough, congestion, shortness of breath, chest pain. Related Data Home Medications Medication Instructions Recorded Confirmed carvedilol 25 mg tablet 12.5 mg PO Q12H 10/15/19 09/20/23 digoxin 125 mcg (0.125 mg) tablet 125 mcg PO DAILY 10/15/19 09/20/23 docusate sodium 100 mg capsule 100 mg PO DAILY 10/15/19 09/20/23 furosemide 40 mg tablet 40 mg PO QAM 10/15/19 09/20/23 lisinopril 2.5 mg tablet 2.5 mg PO DAILY 10/15/19 09/20/23 magnesium oxide 400 mg (241.3 mg 400 mg PO DAILY 10/15/19 09/20/23 magnesium) tablet (MagOx) potassium chloride 20 mEq/15 mL 10 meq PO DAILY 10/15/19 09/20/23 oral liquid acetaminophen 500 mg tablet 1,000 mg PO TID 09/20/23 09/20/23 dabigatran etexilate 150 mg 150 mg PO BID 09/20/23 09/20/23 capsule (Pradaxa) polysaccharide iron complex 150 mg 150 mg PO DAILY 09/20/23 09/20/23 iron capsule (iFerex 150) sodium di- and 1 tablet PO TID 09/20/23 09/20/23 monophosphate-potassium phos monobasic 250 mg tablet (Phospho-Peg Neutral) Allergies Allergy/AdvReac Type Severity Reaction Status Date / Time adhesive tape Allergy Mild hives Verified 09/24/23 02:52 Penicillins Allergy Unknown LEGS AND Verified 09/24/23 02:52 ARMS TURNED PURPLE Review of Systems Review of Systems: All systems reviewed & are unremarkable except as noted in HPI and below PMFSH Past Medical History Medical History Congestive heart failure Heart disease Hypertension Surgical History Surgical History History of section History of hip replacement (~06/2019) Right bipolar History of lumbar surgery fusion with instrumentation Social History Social History Living arrangements: residential Occupation/Education: retired Exam Narrative: GENERAL: Well-appearing, well-nourished, and in no acute distress. HEAD: Normocephalic, atraumatic. EYES: PERRLA and EOMI. ENT: Nares clear. Mucous membranes moist. NECK: Supple. CHEST: Clear to auscultation. No respiratory distress. HEART: Regular rate and rhythm. Normal peripheral pulses. ABDOMEN: Soft, diffusely tender in the upper abdomen without rebound or guarding, nondistended. EXTREMITIES: Normal range of motion. No edema. SKIN: Warm, dry, no rash. NEURO: No focal deficits. Alert and oriented x3. PSYCH: Normal mood and affect. Course Course Emergency Course: Chart review performed. Patient here for abdominal pain. She appears to have been seen on 09/20/23 for abdominal pain. They note history of afib, CHF, HTN and acid reflux
--- NOTE | 2023-09-24 02:53 | ECG_ITS ---
Measurements Intervals [place] Rate: 70 P: [place]: 0 QRS: -17 QRSD: 70 T: -11 QT: 384 QTc: 414 Interpretive Statements ATRIAL FIBRILLATION BASELINE ARTIFACT LOW QRS VOLTAGE IN PRECORDIAL LEADS [QRS DEFLECTION < 1.0 mV IN CHEST LEADS] INFERIOR MYOCARDIAL INFARCTION , OF INDETERMINATE AGE [40+ ms Q WAVE AND/OR ST/T ABNORMALITY IN II/aVF] PROBABLE ANTEROSEPTAL MYOCARDIAL INFARCTION , OF INDETERMINATE AGE [35 ms Q WAVE IN V1- V4] ABNORMAL ECG COMPARED TO ECG 09/20/2023 13:36:44 NO SIGNIFICANT CHANGES Electronically Signed On 09-24-2023 17:04:30 VARSITY BASEBALL COACH by Yvon Lee M.D.
[2023-09-24] MEDS: MORPHINE SULFATE (*CRX) 4 MG/ML INJ IV PUSH (03:23)
[2023-09-24] MEDS: ONDANSETRON INJ 4 MG/2 ML VIAL IV PUSH (03:23)
[2023-09-24 03:39] LABS: Basophils Absolute Auto 0.01 K/mm3 (0.00-0.10); Basophils Percent Auto 0.2 % (0.0-1.0); Eosinophils Absolute Auto 0.13 K/mm3 (0.02-0.50); Eosinophils Percent Auto 2.3 % (1.0-6.0); Hematocrit 37.3 % (35.0-42.0); Hemoglobin 12.1 g/dL (11.7-13.8); Immature Granulocyte Absolute 0.03 K/mm3 (0.00-0.00); Immature Granulocyte Percent A 0.5 % (0.0-0.0); Immature Platelet Fraction Pct 4.2 % (1.0-7.0); Lymphocytes Absolute Auto 0.63 K/mm3 (1.10-4.50); Lymphocytes Percent Auto 11.1 % (18.0-42.0); Mean Corpuscular HGB Conc 32.4 g/dL (32.0-36.0); Mean Corpuscular Hemoglobin 30.8 pg (27.0-31.0); Mean Corpuscular Volume 94.9 fL (78.0-102.0); Mean Platelet Volume 11.4 fl (9.2-11.8); Monocytes Absolute Auto 0.68 K/mm3 (0.10-0.90); Neutrophils Absolute Auto 4.2 K/mm3 (1.7-7.2); Neutrophils Percent Auto 73.9 % (50.0-70.0); Platelet Count Result 110 K/mm3 (150-420); Red Blood Count 3.93 M/mm3 (4.20-5.40); Red Cell Distribution Width 13.9 % (11.6-14.4); White Blood Count 5.7 K/mm3 (4.8-10.8)
[2023-09-24 03:54] LABS: INR 1.4; Partial Thromboplastin Time 68.3 SEC (23.90-30.70); Prothrombin Time 15.3 Seconds (9.50-12.10)
[2023-09-24 03:57] LABS: Lactic Acid Reflex 1.3 mmol/L (0.4-2.0)
[2023-09-24 04:01] LABS: Appearance Urine Clear (Clear); Bilirubin Urine Negative (Negative); Blood Urine Trace-Intact (Negative); Color Urine Yellow (Yellow); Glucose Urine UA Negative (Negative); Ketones Urine Negative (Negative); Leukocyte Esterase Ur Negative LEU/UL (Negative); Nitrate Urine Negative (Negative); Protein Urine Negative (Negative); Specific Grav Ur 1.015 (1.010-1.020); pH Urine 6.5 (5.0-8.0)
[2023-09-24 04:02] LABS: Alanine Aminotransferase 67 U/L (14-59); Albumin Level 3.4 g/dL (3.4-5.0); Alkaline Phosphatase 109 U/L (46-116); Anion Gap 7 mmol/L (8-16); Aspartate Amino Transferase 49 U/L (15-37); Blood Urea Nitrogen 15 mg/dL (7-18); CRP 4.7 mg/dL (0.0-0.9); Calcium 7.6 mg/dL (8.5-10.1); Carbon Dioxide 27 mmol/L (21-32); Chloride 101 mmol/L (98-108); Estimated CRCL calculation 41 ml/min; Estimated Glomerular Filt Rate > 60; Glucose 122 mg/dL (70-99); Lipase 32 U/L (16-77); Magnesium 2.3 mg/dL (1.8-2.4); NT Pro B Type Natriuretic Pept 2036 pg/mL (0-450); Osmolality Calculated 281 mOsm/kg (285-295); Potassium 3.5 mmol/L (3.5-5.1); Sodium 135 mmol/L (136-145); Total Protein 6.7 g/dL (6.4-8.2); Troponin I 13.2 ng/L (0.00-60.4)
[2023-09-24] MEDS: PANTOPRAZOLE SODIUM IV 40 MG VIAL IV PUSH (04:03)
[2023-09-24] MEDS: KETOROLAC 15 MG/ML VIAL (*BKC) IV PUSH (04:03)
[2023-09-24 04:14] LABS: Add Urine Microscopic? YES; RBC Urine 0-2 /hpf (0-2); SARS-CoV-2 RNA PCR Negative (Negative)
[2023-09-24 04:15] LABS: Mucus Urine Few /lpf
[2023-09-24 04:16] LABS: Influenza A QL RT-PCR Negative (Negative); Influenza B QL RT-PCR Negative (Negative); RSV RNA, RT-PCR Negative (Negative)
[2023-09-24 05:47] VITALS: BP 149/66; PULSE 75; RESP 18; TEMP 36.7; O2SAT 97
== END 2023-09-24 06:45 | disposition home or self-care (01) ==
PROVIDERS: Emergency Provider Student in an Organized Health Care Education/Training Program; PCP Internal Medicine
DX: K59.00 Constipation, unspecified (principal); R10.10 Upper abdominal pain, unspecified; I11.0 Hypertensive heart disease with heart failure; I50.9 Heart failure, unspecified; I48.91 Unspecified atrial fibrillation; Z79.899 Other long term (current) drug therapy; Z20.822 Contact with and (suspected) exposure to COVID-19
CPT/HCPCS: 36415; 71046; 74178; 80053; 81001; 83605; 83690; 83735; 83880; 84484; 85025; 85055; 85610; 85730; 86140; 87637; 93005; 96374; 96375; 99284; C9113; J1885; J2270; J2405; Q9967

== ENCOUNTER 2023-09-27 05:51 | Inpatient (IN) | payer MEDICARE, SELFPAY ==
[2023-09-27] VITALS (16 sets, daily range): BP systolic 143–171; BP diastolic 58–99; PULSE 65–100; RESP 16–20; TEMP 36.2–37.1; O2SAT 96–100; BMI 26.5
--- NOTE | ~2023-09-27 | XR_ITS ---
AP view of the pelvis Clinical history: Pain Findings: No acute fracture or dislocation is seen. 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 No hardware conv ocation seen. Left hip joint is preserved. Soft tissues are unremarkable. Impression: No acute abnormality is seen. Right hip arthroplasty. Reviewed, dictated and finalized at location . OND SANDER Impression: No acute abnormality is seen. Right hip arthroplasty.
--- NOTE | ~2023-09-27 | XR_ITS ---
AP and lateral views of the right tibia/fibula Clinical History: Pain Findings: No acute fracture or dislocation is seen. There is generalized osteopenia. Osseous alignmen t is anatomic. Joint spaces are preserved without significant erosive or degenerative change. Soft ti ssues are unremarkable. Impression: No acute abnormality. Generalized osteopenia. Reviewed, dictated and finalized at [facility]. L PRECISION MACHINE ASSEMBLER Impression: No acute abnormality. Generalized osteopenia.
--- NOTE | ~2023-09-27 | XR_ITS ---
AP and lateral views of the right femur Clinical History: Pain Findings: No acute fracture or dislocation is seen. 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 No hardware comp lication is evident. There is generalized osteopenia. There is probable mild degenerative change at t he right knee. Soft tissues are unremarkable. Impression: No acute abnormality. Mild degenerative change of the right knee. 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 Generalized osteopenia. Reviewed, dictated and finalized at location M. SON WORKER Impression: No acute abnormality. Mild degenerative change of the right knee. 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 Generalized osteopenia.
--- NOTE | ~2023-09-27 | CT_ITS ---
EXAMINATION: CT brain wo con DATE: 09/28/2023 16:51 INDICATION: Confusion, altered level of consciousness. Patient fell and struck head within last 48 ho urs. TECHNIQUE: Computed tomography (CT) of the head was performed without intravenous contrast. The mA wa s adjusted according to patient size. Iterative reconstruction technique was employed. Exam dose: 60 5.33 mGy-cm total exam DLP. COMPARISON: 09/28/2023 CTA brain 06/20/2019 CT brain FINDINGS: Small posterior parasagittal left parietal cephalohematoma. No intracranial coup or contrec oup injury is identified. No intracranial mass lesion or hemorrhage or cerebrovascular accident is evident. Minimal right basal ganglia calcification. There is moderately prominent central and cortical cerebral and cerebellar at rophy, not inconsistent with patient age. Bilateral carotid siphon internal carotid artery calcifications. There is nonspecific diminished atte nuation cerebral white matter, likely due to chronic small vessel ischemic changes. No subdural or epidural hematoma is detected. No fracture or bone destruction of the cranial vault. The mastoid air cells and included paranasal si nuses are normally developed and aerated. IMPRESSION: Small left posterior parietal parasagittal cephalohematoma. No skull fracture or acute i ntracranial finding. Reviewed, dictated and finalized at Location A. Reviewed, dictated and finalized at location A. TUTOR IMPRESSION: Small left posterior parietal parasagittal cephalohematoma. No sku ll fracture or acute intracranial finding.
--- NOTE | ~2023-09-27 | US_ITS ---
EXAMINATION: US abdomen limited DATE: 09/28/2023 07:56 INDICATION: Epigastric pain TECHNIQUE: Multiple grayscale and Doppler ultrasound images of the abdomen were obtained. COMPARISON: None available FINDINGS: Bowel gas obscures visualization of the pancreas. The visualized portions of the pancreas a re unremarkable. The liver is normal with normal echogenicity and echotexture. No surface nodularity. Normal hepatopetal flow in the main portal vein. The gallbladder is normal with no abnormal wall thi ckening, pericholecystic fluid or stones. The normal common bile duct measures 6 mm. There was no son ographic Gomez sign. IMPRESSION: 1. Normal sonographic study of the gallbladder. Reviewed, dictated and finalized at location B. TS MANAGEMENT PROFESSOR
--- NOTE | ~2023-09-27 | CT_ITS ---
EXAMINATION: CTA abdomen pelvis DATE: 09/27/2023 09:43 INDICATION: Abdominal pain TECHNIQUE: Computed tomographic angiography (CTA) of the abdomen and pelvis was performed with 100 mL Omnipaque-350 intravenous contrast. Maximum intensity projection 3D-reconstructions of the aorta and other arteries were constructed by the technologist on a separate workstation. The dose-length produ ct (DLP) was 860.45 mGy-cm. Automated exposure control and iterative reconstruction technique were em ployed. COMPARISON: 09/24/2023 FINDINGS: Contrast bolus timing is somewhat limited for evaluation of the abdominal aorta. No aneurys m or dissection detected. There is calcified atherosclerosis of the aorta and many of the other arter ies. There is atelectasis at the visualized lung bases. Cardiomegaly is noted. There are small pleura l effusions. The liver, spleen, pancreas, gallbladder, and adrenal glands are normal. There are multi ple cysts of the kidneys which are difficult to evaluate due to streak artifact from the arms and lum bar fusion hardware. One measuring 10 mm in the right kidney lower pole appears to be hyperattenuatin g. No pathologically enlarged abdominal or pelvic lymph nodes are identified. No free intraperitoneal gas or evidence of bowel obstruction. There are changes of posterior fusion at L4-5. There is an L1 burst fracture. IMPRESSION: 1. No aneurysm or dissection of the aorta, sensitivity somewhat limited by timing of the contrast iris us. 2. Multiple cysts of the kidneys which are indeterminate and one of which, in the right kidney lower pole, appears to be hyperattenuating. Consider nonemergent MRI without and with contrast. Reviewed, dictated and finalized at location L. EWORK DEVELOPER IMPRESSION: 1. No aneurysm or dissection of the aorta, sensitivity somewhat limited by jamey ng of the contrast bolus. 2. Multiple cysts of the kidneys which are indeterminate and one of which, in t he right kidney lower pole, appears to be hyperattenuating. Consider nonemergen t MRI without and with contrast.
--- NOTE | 2023-09-27 05:56 | ED.ABDPAIN ---
HPI - Abdominal Pain General Chief Complaint: Abdominal Pain Stated Complaint: abdominal pain Time Seen by Provider: 09/27/23 07:53 Source: patient and EMS Mode of arrival: ambulatory Limitations: no limitations History of Present Illness HPI narrative: 87-year-old female with a history of hypertension, CHF, atrial fibrillation, chronic anemia, Gastric reflux, Chronic pain presented to the ER on 09/20/2023 and 09/24/2023 for Abdominal pain. She was worked up and noted to have multiple thoracic compression fractures and constipation. The patient was started on MiraLax during her last visit. she was also tested negative for RSV/ influenza / COVID. She presents to the ER with a one-week history of -- abdominal pain. no fever. No nausea / vomiting. -- Unable weight on the right extremity. She went to the bathroom this morning and her knees buckle down. she hit the floor but complains of right lower extremity pain. -- she saw her PCP yesterday who discontinued the [place] and put her on gabapentin. MD elicited complaint: abdominal pain Pertinent past history: constipation Onset (ago): week(s) ( One week) Pain Consistency: constant Location: epigastric Severity: moderate Quality: aching Radiation: none Exacerbating factors: nothing Relieving factors: nothing Associated symptoms: constipation Related Data Home Medications Medication Instructions Recorded Confirmed carvedilol 25 mg tablet 12.5 mg PO Q12H 10/15/19 09/27/23 digoxin 125 mcg (0.125 mg) tablet 125 mcg PO DAILY 10/15/19 09/27/23 docusate sodium 100 mg capsule 100 mg PO DAILY 10/15/19 09/27/23 furosemide 40 mg tablet 40 mg PO QAM 10/15/19 09/27/23 lisinopril 2.5 mg tablet 2.5 mg PO DAILY 10/15/19 09/27/23 magnesium oxide 400 mg (241.3 mg 400 mg PO DAILY 10/15/19 09/27/23 magnesium) tablet (MagOx) potassium chloride 20 mEq/15 mL 10 meq PO DAILY 10/15/19 09/27/23 oral liquid acetaminophen 500 mg tablet 1,000 mg PO TID 09/20/23 09/27/23 dabigatran etexilate 150 mg 150 mg PO BID 09/20/23 09/27/23 capsule (Pradaxa) polysaccharide iron complex 150 mg 150 mg PO DAILY 09/20/23 09/27/23 iron capsule (iFerex 150) sodium di- and 1 tablet PO TID 09/20/23 09/27/23 monophosphate-potassium phos monobasic 250 mg tablet (Phospho-Peg Neutral) gabapentin 100 mg capsule 100 mg PO BID 09/28/23 09/28/23 Allergies Allergy/AdvReac Type Severity Reaction Status Date / Time adhesive tape Allergy Mild hives Verified 09/27/23 06:02 Penicillins Allergy Unknown LEGS AND Verified 09/27/23 06:02 ARMS TURNED PURPLE Review of Systems Review of Systems: All systems reviewed & are unremarkable except as noted in HPI and below Constitutional: Constitutional: Reports as per HPI and Reports no additional constitutional complaints Eyes: Eyes: Reports as per HPI and Reports no additional eye complaints ENT: Reports system reviewed and no additional complaints, except as documented and Reports as per HPI Cardiovascular: Cardiovascular: Reports as per HPI and Reports no additional cardiovascular complaints Respiratory: Respiratory: Reports as per HPI and Reports no additional respiratory complaints Gastrointestinal: Gastrointestinal: Reports as per HPI and Reports no additional gastrointestinal complaints Genitourinary: Genitourinary: Reports no additional female genitourinary complaints and Reports as per HPI Musculoskeletal: Musculoskeletal: Reports no additional musculoskeletal complaints, Reports as per HPI, Reports back pain and Reports myalgias Comments: new right lower extremity pain. History of 2 recent falls. Integumentary/Breasts: Skin/Breast: Reports system reviewed and no additional complaints, except as docu and Reports as per HPI Neurologic: Reports system reviewed and no additional complaints, except as documented and Reports as per HPI Psychiatric: Psychiatric: Reports no additional psychiatric complaints and Reports as per HPI
[2023-09-27 06:50] LABS: Basophils Absolute Auto 0.01 K/mm3 (0.00-0.10); Basophils Percent Auto 0.2 % (0.0-1.0); Eosinophils Absolute Auto 0.13 K/mm3 (0.02-0.50); Eosinophils Percent Auto 2.1 % (1.0-6.0); Hematocrit 36.1 % (35.0-42.0); Hemoglobin 11.7 g/dL (11.7-13.8); Immature Granulocyte Absolute 0.03 K/mm3 (0.00-0.00); Immature Granulocyte Percent A 0.5 % (0.0-0.0); Lymphocytes Absolute Auto 0.65 K/mm3 (1.10-4.50); Lymphocytes Percent Auto 10.3 % (18.0-42.0); Mean Corpuscular HGB Conc 32.4 g/dL (32.0-36.0); Mean Corpuscular Hemoglobin 30.9 pg (27.0-31.0); Mean Corpuscular Volume 95.3 fL (78.0-102.0); Mean Platelet Volume 10.8 fl (9.2-11.8); Monocytes Absolute Auto 0.82 K/mm3 (0.10-0.90); Neutrophils Absolute Auto 4.7 K/mm3 (1.7-7.2); Neutrophils Percent Auto 73.9 % (50.0-70.0); Platelet Count Result 146 K/mm3 (150-420); Red Blood Count 3.79 M/mm3 (4.20-5.40); Red Cell Distribution Width 14.6 % (11.6-14.4); White Blood Count 6.3 K/mm3 (4.8-10.8)
[2023-09-27 06:58] LABS: INR 1.3; Partial Thromboplastin Time 57.5 SEC (23.90-30.70)
[2023-09-27 07:03] LABS: Lactic Acid Reflex 1.2 mmol/L (0.4-2.0)
[2023-09-27 07:09] LABS: Alanine Aminotransferase 98 U/L (14-59); Albumin Level 3.1 g/dL (3.4-5.0); Alkaline Phosphatase 135 U/L (46-116); Anion Gap 7 mmol/L (8-16); Aspartate Amino Transferase 48 U/L (15-37); Bilirubin,Total 0.9 mg/dL (0.00-1.00); Blood Urea Nitrogen 13 mg/dL (7-18); Calcium 7.3 mg/dL (8.5-10.1); Carbon Dioxide 28 mmol/L (21-32); Chloride 100 mmol/L (98-108); Estimated CRCL calculation 40 ml/min; Estimated Glomerular Filt Rate > 60; Glucose 120 mg/dL (70-99); Osmolality Calculated 281 mOsm/kg (285-295); Potassium 3.6 mmol/L (3.5-5.1); Sodium 135 mmol/L (136-145); Total Protein 6.5 g/dL (6.4-8.2)
[2023-09-27 07:12] LABS: Digoxin 0.5 ng/mL (0.9-2.0)
[2023-09-27 07:12] LABS: Lipase 44 U/L (16-77)
[2023-09-27 08:05] LABS: Appearance Urine Clear (Clear); Bilirubin Urine Negative (Negative); Blood Urine Negative (Negative); Color Urine Yellow (Yellow); Glucose Urine UA Negative (Negative); Ketones Urine Negative (Negative); Leukocyte Esterase Ur Trace LEU/UL (Negative); Nitrate Urine Negative (Negative); Protein Urine Trace (Negative)
[2023-09-27 08:19] LABS: Add Urine Microscopic? YES; Bacteria Urine Trace /hpf; RBC Urine 0-2 /hpf (0-2); Squamous Epithelial Cell Urine Few /hpf (Few); WBC Urine 0-3 /hpf (0-3)
--- NOTE | 2023-09-27 11:00 | PC.NURSE ---
pt to floor room 208 , per stretcher with this internal communications writer.
--- NOTE | 2023-09-27 11:10 | ADMGEN ---
This patient, Doreen Hedrick, was admitted to 2nd Floor Room 208-2. Patient/family oriented to hospital policies and general routines including ID bracelet, bed and alarms, visiting hours, pain management, procedures, bathroom and other care routines, personal items, smoking policy, room service/diet, and visiting hours. Information on how to activate the Rapid Response Team has been discussed. Patient/Family are encouraged to report perceived risks to care and to ask questions if they do not understand what they are told or what they should do.
--- NOTE | 2023-09-27 12:21 | PM.IMHP ---
H&P: HPI History of Present Illness Date/Time: 09/27/23 12:21 Chief Complaint: Abdominal pain Narrative: This is an 87-year-old female with significant past medical history of hypertension, CHF, atrial fibrillation, chronic anemia, GERD, and chronic pain who presented to the emergency room for evaluation of abdominal pain. Work up in the ER included x-rays of right femur, tib/fib, and pelvis which was negative for any acute abnormality and only shown osteopenia and degenerative changes of the knee. She also had a abdomen/pelvis CTA which was negative for any aneurysm or dissection of the aorta however it did show multiple cysts of the kidneys with one cyst measuring 10mm in the right kidney lower pole appearing hyperattenuating. Liver, spleen, pancreas, gallbladder, and adrenal glands are also normal. No bowel gas or obstruction was seen. Labs revealed WBC 6.3, RBC 3.79, Plt count 146, PT 14.0, INR 1.3, PTT 57.5, Na+ 135, K+ 3.6, BUN 13, Creatinine 0.86, Lactic acid 1.2, serum osmolarity 281, Ca+ 7.3. AST 48, ALT 98, Alk phos 135, Lipase 44, Albumin 3.1, digoxin level 0.5. UA shown trace protein and trace leukocytes. On examination today patient is alert and oriented x3, lying in the bed. Daughter is at the bedside. Patient reports epigastric pain and nausea today. She states that her pain gets worse immediately after she eats or drinks anything. She states that the pain is sharp and constant with radiating to the flanks and back. She denies any fever, chills, vomiting, diarrhea, shortness of breath, or chest pain. She denies any sick contacts, however TENZINID has been going around at the assisted living facility. She did state that this morning she did sustain a fall backwards onto her toilet and eventually hitting the floor. She stated that her right knee was weak and gave way when she was pulling up her pants. She hit the back of her leg onto the toilet seat. Of note patient was seen a few times this month in the ER for similar complaints. The last time she was seen was on09/20/23 and 09/24/23 and had CXR that shown multiple old compression fractures seen, CT of the abdomen was negative for anything acute, shown increased stool burden. She was sent home from the ED. On 09/13/23 she was seen and treated for a UTI. Urine culture showing E. coli. She finished a course of Macrobid. She does still report urgency, incontinence, and odor was reported. Patient is being admitted for inpatient medical management. Plan for pain control, US of abdomen, UA with relfex to culture, started on Protonix BID and Maalox PRN. We will get case management, PT and OT on board for evaluation considering she lives in assisted living. Patient may need transfer for GI consultation and further workup including hida scan if US of gallbladder is abnormal or evaluation for gastric ulcer. Review of Systems Review of Systems: All systems reviewed & are unremarkable except as noted in HPI and below Constitutional: Constitutional: Denies chills, Denies fatigue and Reports weakness Eyes: Eyes: Reports as per HPI and Reports no additional eye complaints ENT: Reports system reviewed and no additional complaints, except as documented and Reports as per HPI Cardiovascular: Cardiovascular: Reports as per HPI, Reports no additional cardiovascular complaints, Denies chest pain, Reports pedal edema and Reports leg edema Respiratory: Respiratory: Reports as per HPI, Reports no additional respiratory complaints, Denies chest congestion and Denies cough Gastrointestinal: Gastrointestinal: Reports as per HPI, Reports no additional gastrointestinal complaints, Reports abdominal pain, Reports constipation, Denies diarrhea, Reports nausea and Denies vomiting Genitourinary: Genitourinary: Reports dysuria, Reports urinary incontinence and Reports urinary urgency Musculoskeletal: Musculoskeletal: Reports back pain Integumentary/Breasts: Skin/Breast: Reports system reviewed and no additional complaints, except
[2023-09-27 13:15] LABS: Magnesium 2.3 mg/dL (1.8-2.4); Phosphorus 2.6 mg/dL (2.6-4.7)
[2023-09-27 13:16] LABS: Amylase 57 U/L (25-115); CRP 3.9 mg/dL (0.0-0.9)
--- NOTE | 2023-09-27 14:22 | ECG_ITS ---
Measurements Intervals [place] Rate: 82 P: [place]: 0 QRS: 4 QRSD: 79 T: 135 QT: 379 QTc: 444 Interpretive Statements ATRIAL FIBRILLATION POSSIBLE ANTERIOR MYOCARDIAL INFARCTION , OF INDETERMINATE AGE [30 ms Q WAVE IN V3/V4, OR R < 0.2 mV IN V4] ABNORMAL ECG COMPARED TO ECG 09/24/2023 03:23:44 NO SIGNIFICANT CHANGES Electronically Signed On 09-27-2023 18:19:42 ONCOLOGY NURSE by Oni Jacinto M.D.
[2023-09-27] MEDS: KETOROLAC 15 MG/ML VIAL (*BKC) IV PUSH (14:25)
[2023-09-27] MEDS: traMADol HCL (*CRX) 25 MG TABLET PO (18:29)
[2023-09-27] MEDS: DABIGATRAN ETEXILATE 75 MG CAPSULE 150 MG PO (21:36)
[2023-09-27] MEDS: PANTOPRAZOLE 40 MG TABLET PO (21:36)
[2023-09-27] MEDS: carvediloL 12.5 MG TABLET PO (21:37)
[2023-09-28] VITALS (9 sets, daily range): BP systolic 128–161; BP diastolic 62–99; PULSE 72–98; RESP 16; TEMP 36.2–37.3; O2SAT 97–98
[2023-09-28 05:56] LABS: Basophils Absolute Auto 0.02 K/mm3 (0.00-0.10); Basophils Percent Auto 0.3 % (0.0-1.0); Eosinophils Absolute Auto 0.13 K/mm3 (0.02-0.50); Hematocrit 34.7 % (35.0-42.0); Hemoglobin 11.3 g/dL (11.7-13.8); Immature Granulocyte Absolute 0.05 K/mm3 (0.00-0.00); Immature Granulocyte Percent A 0.8 % (0.0-0.0); Lymphocytes Absolute Auto 0.92 K/mm3 (1.10-4.50); Lymphocytes Percent Auto 14.5 % (18.0-42.0); Mean Corpuscular HGB Conc 32.6 g/dL (32.0-36.0); Mean Corpuscular Hemoglobin 30.9 pg (27.0-31.0); Mean Corpuscular Volume 94.8 fL (78.0-102.0); Mean Platelet Volume 9.9 fl (9.2-11.8); Monocytes Absolute Auto 0.72 K/mm3 (0.10-0.90); Monocytes Percent Auto 11.3 % (2.0-11.0); Neutrophils Absolute Auto 4.5 K/mm3 (1.7-7.2); Neutrophils Percent Auto 71.1 % (50.0-70.0); Platelet Count Result 155 K/mm3 (150-420); Red Blood Count 3.66 M/mm3 (4.20-5.40); Red Cell Distribution Width 14.6 % (11.6-14.4); White Blood Count 6.4 K/mm3 (4.8-10.8)
[2023-09-28 06:18] LABS: Alanine Aminotransferase 74 U/L (14-59); Albumin Level 2.8 g/dL (3.4-5.0); Alkaline Phosphatase 115 U/L (46-116); Anion Gap 7 mmol/L (8-16); Aspartate Amino Transferase 30 U/L (15-37); Bilirubin,Total 0.8 mg/dL (0.00-1.00); Blood Urea Nitrogen 13 mg/dL (7-18); Calcium 7.3 mg/dL (8.5-10.1); Carbon Dioxide 25 mmol/L (21-32); Chloride 102 mmol/L (98-108); Estimated CRCL calculation 49 ml/min; Estimated Glomerular Filt Rate > 60; Glucose 94 mg/dL (70-99); Osmolality Calculated 278 mOsm/kg (285-295); Potassium 3.8 mmol/L (3.5-5.1); Sodium 134 mmol/L (136-145); Total Protein 6.2 g/dL (6.4-8.2)
[2023-09-28] MEDS: traMADol HCL (*CRX) 25 MG TABLET PO ×2 (08:39→19:32)
[2023-09-28] MEDS: MAG HYDROX/AL HYDROX/SIMETH 30 ML UDC PO (08:40)
[2023-09-28 09:18] LABS: Phosphorus 1.7 mg/dL (2.6-4.7)
[2023-09-28] MEDS: PANTOPRAZOLE 40 MG TABLET PO ×2 (10:41→21:30)
[2023-09-28] MEDS: lisinopriL 2.5 MG TABLET PO (10:41)
[2023-09-28] MEDS: carvediloL 12.5 MG TABLET PO ×2 (10:41→21:30)
[2023-09-28] MEDS: DABIGATRAN ETEXILATE 75 MG CAPSULE 150 MG PO ×2 (10:41→21:29)
[2023-09-28] MEDS: MAGNESIUM OXIDE 400 MG TABLET PO (10:41)
[2023-09-28] MEDS: DIGOXIN TAB 125 MCG TABLET PO (10:41)
[2023-09-28] MEDS: FUROSEMIDE 40 MG TABLET PO (10:42)
[2023-09-28] MEDS: GABAPENTIN 100 MG CAPSULE PO (10:49)
[2023-09-28] MEDS: POTASSIUM/PHOSPHORUS/SODIUM 1.5 GM PACKET 1 PACKET PO ×3 (10:49→21:29)
[2023-09-28] MEDS: POLYSACCHARIDE IRON COMPLEX 150 MG CAPSULE PO (10:49)
--- NOTE | 2023-09-28 15:12 | PM.IMPN ---
Progress Note: A&P Assessment and Plan (1) Abdominal pain: Qualifiers: Abdominal location: periumbilical Qualified Code(s): R10.33 - Periumbilical pain Code(s): R10.9 - Unspecified abdominal pain Status: Chronic Assessment and Plan: 09/27/23: Patient reporting sharp constant abdominal pain especially after eating and drinking. She states pain radiates to flanks and back. Patient seen on 09/20/23 and 09/24/23 for similar symptoms. She was discharged from ED both times. CTA of abdomen-no aneurysm or dissection, shown multiple cysts of the kidneys which are indeterminate with one cyst measuring 10mm in the right kidney lower pole appearing hyperattenuating which was present on a recent CT of the abdomen/pelvis. Lipase 44, amylase 57, CRP 3.9, Alk phos 135, AST 48, ALT 98, WBC 6.3 Will check h. pylori US of abdomen ordered and will be obtained tomorrow. NPO after midnight. If US is abnormal, patient may benefit from a hida scan to look at gallbladder or further GI workup to rule out any gastric or duodenal ulcer. Check UA and culture if indicated Patient recently diagnosed with UTI on 09/13/23 and finished a course of Macrobid. One time dose of Toradol ordered IV, Order placed for Ultram Will hold her Tylenol 1g considering her AST/ALT are slightly elevated Order placed for Protonix BID and Maalox as needed 09/28: gallbladder ultrasound unremarkable. Possible gastric/duodenal ulcer, no signs of acute bleeding to indicate transfer for EGD. Early in the day patient complained only of epigastric pain but later in the day no longer complained of such. (2) Weakness of right leg: Code(s): R29.898 - Other symptoms and signs involving the musculoskeletal system Status: Acute Assessment and Plan: Patient reports unable to feel right leg below knee, unable to stand/bear weight. Xrays unremarkable. Now concerned for Stroke as cause of confusion (new) and right leg dysfunction. CT/CTA Brain ordered, will add MRI if CT negative. (3) Fall: Code(s): W19.XXXA - Unspecified fall, initial encounter Status: Acute Assessment and Plan: 09/27/23: Patient states she got up from the toilet and stated her right knee gave way causing her to fall backwards back onto the toilet. X-ray of right tib/fib, femur, and pelvis was negative for any acute fracture, there was note of osteopenia. Bruising noted to right posterior leg She denies any pain in her legs PT and OT ordered for evaluation as patient lives in assisted living, may need placement [facility]. 09/28: Report of head injury during fall, will get CT Brain. Concern that this could have been result of Stroke as right lower leg not functional since this fall 2 days ago. (4) Chronic pain: Qualifiers: Chronic pain type: other chronic pain Qualified Code(s): G89.29 - Other chronic pain Code(s): G89.29 - Other chronic pain Status: Chronic Assessment and Plan: 09/27/23: History of osteopenia with multiple old compression fractures of the spine. Taking gabapentin and Tylenol for pain control. However I am holding her Tylenol due to her liver enzymes being elevated Continue pain control with a one time dose of Toradol and switch her to oral Ultram. (5) Compression fracture: Status: Chronic Assessment and Plan: Chronic and likely non-contributory to acute complaints (6) Congestive heart failure: Code(s): I50.9 - Heart failure, unspecified Status: Chronic Assessment and Plan: 09/27/23: Patient restarted on home med Carvedilol, Lasix, and digoxin Bilateral lower extremity edema (7) Hypertension: Code(s): I10 - Essential (primary) hypertension Status: Chronic Assessment and Plan: 09/27/23: Restarted Lisinopril (8) Atrial fibrillation: Code(s): I48.91 - Unspecified atrial fibrillation Status: Chronic Assessment and Plan
[2023-09-28] MEDS: ACETAMINOPHEN 325 MG TABLET 650 MG PO (21:30)
[2023-09-29] VITALS (7 sets, daily range): BP systolic 144–155; BP diastolic 68–83; PULSE 74–88; RESP 17–18; TEMP 36.9–37.2; O2SAT 97
[2023-09-29] MEDS: ACETAMINOPHEN 325 MG TABLET 650 MG PO ×3 (04:00→21:12)
[2023-09-29 05:19] LABS: Basophils Absolute Auto 0.04 K/mm3 (0.00-0.10); Basophils Percent Auto 0.7 % (0.0-1.0); Eosinophils Absolute Auto 0.21 K/mm3 (0.02-0.50); Eosinophils Percent Auto 3.4 % (1.0-6.0); Hematocrit 35.6 % (35.0-42.0); Hemoglobin 11.4 g/dL (11.7-13.8); Immature Granulocyte Absolute 0.03 K/mm3 (0.00-0.00); Immature Granulocyte Percent A 0.5 % (0.0-0.0); Lymphocytes Absolute Auto 0.69 K/mm3 (1.10-4.50); Lymphocytes Percent Auto 11.2 % (18.0-42.0); Mean Corpuscular Hemoglobin 30.9 pg (27.0-31.0); Mean Corpuscular Volume 96.5 fL (78.0-102.0); Mean Platelet Volume 10.1 fl (9.2-11.8); Monocytes Absolute Auto 0.71 K/mm3 (0.10-0.90); Monocytes Percent Auto 11.5 % (2.0-11.0); Neutrophils Absolute Auto 4.5 K/mm3 (1.7-7.2); Neutrophils Percent Auto 72.7 % (50.0-70.0); Platelet Count Result 166 K/mm3 (150-420); Red Blood Count 3.69 M/mm3 (4.20-5.40); Red Cell Distribution Width 14.8 % (11.6-14.4); White Blood Count 6.2 K/mm3 (4.8-10.8)
[2023-09-29] MEDS: POTASSIUM/PHOSPHORUS/SODIUM 1.5 GM PACKET 1 PACKET PO ×3 (05:20→21:12)
[2023-09-29 05:32] LABS: Albumin Level 2.7 g/dL (3.4-5.0); Anion Gap 7 mmol/L (8-16); Blood Urea Nitrogen 12 mg/dL (7-18); Calcium 7.4 mg/dL (8.5-10.1); Carbon Dioxide 26 mmol/L (21-32); Chloride 101 mmol/L (98-108); Estimated CRCL calculation 44 ml/min; Estimated Glomerular Filt Rate > 60; Glucose 118 mg/dL (70-99); Magnesium 2.2 mg/dL (1.8-2.4); Osmolality Calculated 278 mOsm/kg (285-295); Phosphorus 2.2 mg/dL (2.6-4.7); Potassium 4.2 mmol/L (3.5-5.1); Sodium 134 mmol/L (136-145)
[2023-09-29] MEDS: traMADol HCL (*CRX) 25 MG TABLET PO ×2 (08:28→16:30)
[2023-09-29] MEDS: MAGNESIUM OXIDE 400 MG TABLET PO (08:28)
[2023-09-29] MEDS: DABIGATRAN ETEXILATE 75 MG CAPSULE 150 MG PO ×2 (08:29→21:12)
--- NOTE | 2023-09-29 08:29 | P.PNIM_ITS ---
Progress Note: A&P Assessment and Plan (1) Abdominal pain: Qualifiers: Abdominal location: periumbilical Qualified Code(s): R10.33 - Periumbilical pain Code(s): R10.9 - Unspecified abdominal pain Status: Chronic Assessment and Plan: 09/27/23: * Patient reporting sharp constant abdominal pain especially after eating and drinking. She states pain radiates to flanks and back. * Patient seen on 09/20/23 and 09/24/23 for similar symptoms. She was discharged from ED both times. * CTA of abdomen-no aneurysm or dissection, shown multiple cysts of the kidneys which are indeterminate with one cyst measuring 10mm in the right kidney lower pole appearing hyperattenuating which was present on a recent CT of the abdomen/pelvis. * Lipase 44, amylase 57, CRP 3.9, Alk phos 135, AST 48, ALT 98, WBC 6.3 * Will check h. pylori * US of abdomen ordered and will be obtained tomorrow. NPO after midnight. If US is abnormal, patient may benefit from a hida scan to look at gallbladder or further GI workup to rule out any gastric or duodenal ulcer. * Check UA and culture if indicated * Patient recently diagnosed with UTI on 09/13/23 and finished a course of Macrobid. * One time dose of Toradol ordered IV, Order placed for Ultram * Will hold her Tylenol 1g considering her AST/ALT are slightly elevated * Order placed for Protonix BID and Maalox as needed 09/28: gallbladder ultrasound unremarkable. Possible gastric/duodenal ulcer, no signs of acute bleeding to indicate transfer for EGD. Early in the day patient complained only of epigastric pain but later in the day no longer complained of such. (2) Weakness of right leg: Code(s): R29.898 - Other symptoms and signs involving the musculoskeletal system Status: Acute Assessment and Plan: Patient reports unable to feel right leg below knee, unable to stand/bear weight. Xrays unremarkable. Now concerned for Stroke as cause of confusion (new) and right leg dysfunction. CT/CTA Brain ordered, will add MRI if CT negative. 09/29: MRI is pending. (3) Fall: Code(s): W19.XXXA - Unspecified fall, initial encounter Status: Acute Assessment and Plan: 09/27/23: * Patient states she got up from the toilet and stated her right knee gave way causing her to fall backwards back onto the toilet. * X-ray of right tib/fib, femur, and pelvis was negative for any acute fracture, there was note of osteopenia. * Bruising noted to right posterior leg * She denies any pain in her legs * PT and OT ordered for evaluation as patient lives in assisted living, may need placement to halfway. 09/28: Report of head injury during fall, will get CT Brain. Concern that this could have been result of Stroke as right lower leg not functional since this fall 2 days ago. 09/29: MRI pending (4) Chronic pain: Qualifiers: Chronic pain type: other chronic pain Qualified Code(s): G89.29 - Other chronic pain Code(s): G89.29 - Other chronic pain Status: Chronic Assessment and Plan: 09/27/23: * History of osteopenia with multiple old compression fractures of the spine. * Taking gabapentin and Tylenol for pain control. However I am holding her Tylenol due to her liver enzymes being elevated * Continue pain control with a one time dose of Toradol and switch her to oral Ultram. (5) Compression fracture: Status: Chronic Assessment and Plan: Chronic and likely non-contributory to acute complaints (6) Congestive heart failure: Code(s): I50.9 - Heart failure, unspecified Status: Chronic Assessm
[2023-09-29] MEDS: PANTOPRAZOLE 40 MG TABLET PO ×2 (08:30→21:12)
[2023-09-29] MEDS: POLYSACCHARIDE IRON COMPLEX 150 MG CAPSULE PO (08:30)
[2023-09-29] MEDS: FUROSEMIDE 40 MG TABLET PO (08:31)
[2023-09-29] MEDS: DIGOXIN TAB 125 MCG TABLET PO (08:31)
[2023-09-29] MEDS: DOCUSATE SODIUM 100 MG CAPSULE PO (08:31)
[2023-09-29] MEDS: lisinopriL 2.5 MG TABLET PO (08:31)
[2023-09-29] MEDS: carvediloL 12.5 MG TABLET PO ×2 (08:32→21:12)
[2023-09-29] MEDS: polyethylene glycoL 3350 17 GM POWD.PACK PO ×2 (08:34→16:31)
[2023-09-29] MEDS: ALPRAZolam (*CRX) 0.5 MG TABLET PO (08:36)
--- NOTE | 2023-09-29 08:59 | PC.NURSE ---
0818 patient changed to inpatient status.
--- NOTE | 2023-09-29 09:39 | PC.NURSE ---
Patient changed from observation to inpatient status.
[2023-09-30] VITALS: BP 114/50; PULSE 74; RESP 16; TEMP 36.6; O2SAT 98
[2023-09-30] MEDS: traMADol HCL (*CRX) 25 MG TABLET PO ×3 (01:30→17:33)
[2023-09-30] MEDS: ACETAMINOPHEN 325 MG TABLET 650 MG PO ×3 (04:46→20:22)
[2023-09-30] MEDS: POTASSIUM/PHOSPHORUS/SODIUM 1.5 GM PACKET 1 PACKET PO ×3 (04:48→21:57)
--- NOTE | 2023-09-30 05:31 | PC.NURSE ---
Patient is incontinent of bladder and bowel. She has an occult stool ordered, but has not yet had a BM, so it has not been collected. Patient has continued c/o abdominal pain worse with movement. The current Prn pain medication seem effective. Patient is A/O x1 this shift with confusion. Patient requires frequent reorientation. Patient is also anxious, needing frequent reassurances. Vitals are WNL, including 98% of room air. Patient takes her meds whole. She likes to eat a cookie after medication. At night, she receives lance crackers, as that is what is available. Patient refuses to turn and position, and continues to refuse her SCDs. It is very difficult to roll her to change her.
[2023-09-30 06:58] LABS: Basophils Absolute Auto 0.03 K/mm3 (0.00-0.10); Basophils Percent Auto 0.5 % (0.0-1.0); Eosinophils Percent Auto 4.8 % (1.0-6.0); Hematocrit 35.2 % (35.0-42.0); Hemoglobin 11.4 g/dL (11.7-13.8); Immature Granulocyte Absolute 0.05 K/mm3 (0.00-0.00); Immature Granulocyte Percent A 0.8 % (0.0-0.0); Lymphocytes Absolute Auto 0.81 K/mm3 (1.10-4.50); Mean Corpuscular HGB Conc 32.4 g/dL (32.0-36.0); Mean Corpuscular Hemoglobin 30.8 pg (27.0-31.0); Mean Corpuscular Volume 95.1 fL (78.0-102.0); Mean Platelet Volume 10.7 fl (9.2-11.8); Monocytes Absolute Auto 0.69 K/mm3 (0.10-0.90); Monocytes Percent Auto 11.1 % (2.0-11.0); Neutrophils Absolute Auto 4.3 K/mm3 (1.7-7.2); Neutrophils Percent Auto 69.8 % (50.0-70.0); Platelet Count Result 169 K/mm3 (150-420); Red Cell Distribution Width 14.9 % (11.6-14.4); White Blood Count 6.2 K/mm3 (4.8-10.8)
[2023-09-30 07:19] LABS: Albumin Level 2.7 g/dL (3.4-5.0); Anion Gap 8 mmol/L (8-16); Blood Urea Nitrogen 12 mg/dL (7-18); Calcium 7.1 mg/dL (8.5-10.1); Carbon Dioxide 24 mmol/L (21-32); Chloride 101 mmol/L (98-108); Estimated CRCL calculation 52 ml/min; Estimated Glomerular Filt Rate > 60; Glucose 92 mg/dL (70-99); Magnesium 2.4 mg/dL (1.8-2.4); Osmolality Calculated 275 mOsm/kg (285-295); Phosphorus 2.9 mg/dL (2.6-4.7); Potassium 5.1 mmol/L (3.5-5.1); Sodium 133 mmol/L (136-145)
[2023-09-30 07:56] VITALS: BP 151/96; PULSE 83; RESP 18; TEMP 36.7; O2SAT 97
[2023-09-30] MEDS: MAGNESIUM OXIDE 400 MG TABLET PO (08:13)
[2023-09-30] MEDS: lisinopriL 2.5 MG TABLET PO (08:13)
[2023-09-30] MEDS: DABIGATRAN ETEXILATE 75 MG CAPSULE 150 MG PO ×2 (08:14→21:56)
[2023-09-30] MEDS: polyethylene glycoL 3350 17 GM POWD.PACK PO ×2 (08:14→17:30)
[2023-09-30 08:15] VITALS: PULSE 82
[2023-09-30] MEDS: DIGOXIN TAB 125 MCG TABLET PO (08:15)
[2023-09-30] MEDS: DOCUSATE SODIUM 100 MG CAPSULE PO (08:15)
[2023-09-30] MEDS: PANTOPRAZOLE 40 MG TABLET PO ×2 (08:15→21:56)
[2023-09-30 08:16] VITALS: PULSE 82
[2023-09-30] MEDS: carvediloL 12.5 MG TABLET PO ×2 (08:16→21:56)
[2023-09-30] MEDS: POLYSACCHARIDE IRON COMPLEX 150 MG CAPSULE PO (08:16)
[2023-09-30] MEDS: FUROSEMIDE 40 MG TABLET PO (08:17)
--- NOTE | 2023-09-30 08:41 | PC.NURSE ---
Nurse attempting to change patient's depend. Patient would not roll over onto her side and nurse was unable to roll patient by herself due to patient holding onto bed rails and not cooperating. Nurse called charge nurse for help and charge nurse came in to help remote mortgage underwriter. Charge nurse rolled patient onto L side and patient's head bumped the bed rail. Patient stated, You smashed my head against that! Charge nurse apologized for bumping patient's head and explained to patient that it was an accident and assessed patient's head. No s/s redness or swelling noted. Two nurses finished changing patient's depends and assisted patient into a more comfortable position. Patient continued to say things like, I don't know how anyone can be so cruel as to bash someone's head in. Lining Maker Hand explained again that it was an accident, and that no one bashed her head but rather bumped her head when turning. Lining Maker Hand told patient that she was sorry and that patient could roll yesterday and even stood with assist when therapy was here. Patient stated that she has deteriorated since yesterday and that she is paralyzed . Patient has not c/o leg pain today, but abdominal pain. Pain medication administered. Patient stated that we are cruel for allowing her to be in such agony and stated that she hopes we don't forget her and not take care of her. Lining Maker Hand explained that this is a hospital and that we do not forget our patients. Although patient stated she is paralyzed, patient was pushing against the bed rail while we were turning her and fighting being turned onto side for elizabeth care. Patient was saturated and needed to be changed. Patient continues to state how cruel the nurses are.
--- NOTE | 2023-09-30 08:58 | PC.NURSE ---
Prior to previous encounter bond writer offered patient a bedpan and patient stated that she can not use a bed grier because she is paralyzed and that the other nurses were allowing patient to go in adult diapers.
--- NOTE | 2023-09-30 09:28 | PC.NURSE ---
Nurse asked SOCIAL SERVICES if patient could get out of bed. SOCIAL SERVICES said yes. Nurse assisted patient out of bed with giuseppe steady and patient is now in recliner with legs elevated and a warm blanket on. Patient stated again that she is paralyzed and unable to use her right leg, but patient able to get her legs out of bed without assistance and was able to transfer well with giuseppe steady.
[2023-09-30 16:00] VITALS: BP 162/97; PULSE 84; RESP 16; TEMP 36.9; O2SAT 97
[2023-09-30 21:56] VITALS: PULSE 67
[2023-10-01] VITALS: BP 143/67; PULSE 92; RESP 16; TEMP 37.2; O2SAT 97
[2023-10-01] MEDS: traMADol HCL (*CRX) 25 MG TABLET PO ×3 (00:32→20:57)
[2023-10-01 00:47] LABS: Occult Blood Negative (Negative)
[2023-10-01] MEDS: ACETAMINOPHEN 325 MG TABLET 650 MG PO ×2 (04:00→19:02)
[2023-10-01 06:09] LABS: Basophils Absolute Auto 0.02 K/mm3 (0.00-0.10); Basophils Percent Auto 0.3 % (0.0-1.0); Eosinophils Absolute Auto 0.31 K/mm3 (0.02-0.50); Eosinophils Percent Auto 4.4 % (1.0-6.0); Hematocrit 36.6 % (35.0-42.0); Hemoglobin 11.8 g/dL (11.7-13.8); Immature Granulocyte Absolute 0.06 K/mm3 (0.00-0.00); Immature Granulocyte Percent A 0.9 % (0.0-0.0); Mean Corpuscular HGB Conc 32.2 g/dL (32.0-36.0); Mean Corpuscular Hemoglobin 30.4 pg (27.0-31.0); Mean Corpuscular Volume 94.3 fL (78.0-102.0); Mean Platelet Volume 10.6 fl (9.2-11.8); Monocytes Absolute Auto 0.76 K/mm3 (0.10-0.90); Monocytes Percent Auto 10.9 % (2.0-11.0); Neutrophils Absolute Auto 5.2 K/mm3 (1.7-7.2); Neutrophils Percent Auto 73.5 % (50.0-70.0); Platelet Count Result 207 K/mm3 (150-420); Red Blood Count 3.88 M/mm3 (4.20-5.40); Red Cell Distribution Width 14.9 % (11.6-14.4)
[2023-10-01] MEDS: POTASSIUM/PHOSPHORUS/SODIUM 1.5 GM PACKET 1 PACKET PO ×3 (06:09→21:00)
[2023-10-01 06:13] LABS: Albumin Level 2.8 g/dL (3.4-5.0); Anion Gap 6 mmol/L (8-16); Blood Urea Nitrogen 11 mg/dL (7-18); Carbon Dioxide 26 mmol/L (21-32); Chloride 100 mmol/L (98-108); Estimated CRCL calculation 46 ml/min; Estimated Glomerular Filt Rate > 60; Glucose 93 mg/dL (70-99); Magnesium 2.3 mg/dL (1.8-2.4); Osmolality Calculated 273 mOsm/kg (285-295); Phosphorus 2.2 mg/dL (2.6-4.7); Potassium 4.6 mmol/L (3.5-5.1); Sodium 132 mmol/L (136-145)
[2023-10-01 08:00] VITALS: BP 143/66; PULSE 74; RESP 14; TEMP 36.8; O2SAT 96
[2023-10-01] MEDS: DABIGATRAN ETEXILATE 75 MG CAPSULE 150 MG PO ×2 (10:07→20:58)
[2023-10-01] MEDS: DOCUSATE SODIUM 100 MG CAPSULE PO (10:07)
[2023-10-01] MEDS: MAGNESIUM OXIDE 400 MG TABLET PO (10:07)
[2023-10-01] MEDS: PANTOPRAZOLE 40 MG TABLET PO ×2 (10:07→20:59)
[2023-10-01 10:08] VITALS: PULSE 74
[2023-10-01] MEDS: DIGOXIN TAB 125 MCG TABLET PO (10:08)
[2023-10-01] MEDS: carvediloL 12.5 MG TABLET PO ×2 (10:08→20:59)
[2023-10-01] MEDS: FUROSEMIDE 40 MG TABLET PO (10:08)
[2023-10-01] MEDS: lisinopriL 2.5 MG TABLET PO (10:09)
[2023-10-01] MEDS: POLYSACCHARIDE IRON COMPLEX 150 MG CAPSULE PO (10:09)
--- NOTE | 2023-10-01 11:23 | WPDPN ---
Progress Note: A&P Assessment and Plan (1) Abdominal pain: Qualifiers: Abdominal location: periumbilical Qualified Code(s): R10.33 - Periumbilical pain Code(s): R10.9 - Unspecified abdominal pain Status: Chronic Assessment and Plan: 09/27/23: Patient reporting sharp constant abdominal pain especially after eating and drinking. She states pain radiates to flanks and back. Patient seen on 09/20/23 and 09/24/23 for similar symptoms. She was discharged from ED both times. CTA of abdomen-no aneurysm or dissection, shown multiple cysts of the kidneys which are indeterminate with one cyst measuring 10mm in the right kidney lower pole appearing hyperattenuating which was present on a recent CT of the abdomen/pelvis. Lipase 44, amylase 57, CRP 3.9, Alk phos 135, AST 48, ALT 98, WBC 6.3 Will check h. pylori US of abdomen ordered and will be obtained tomorrow. NPO after midnight. If US is abnormal, patient may benefit from a hida scan to look at gallbladder or further GI workup to rule out any gastric or duodenal ulcer. Check UA and culture if indicated Patient recently diagnosed with UTI on 09/13/23 and finished a course of Macrobid. One time dose of Toradol ordered IV, Order placed for Ultram Will hold her Tylenol 1g considering her AST/ALT are slightly elevated Order placed for Protonix BID and Maalox as needed 09/28: gallbladder ultrasound unremarkable. Possible gastric/duodenal ulcer, no signs of acute bleeding to indicate transfer for EGD. Early in the day patient complained only of epigastric pain but later in the day no longer complained of such. 09/30 (2) Weakness of right leg: Code(s): R29.898 - Other symptoms and signs involving the musculoskeletal system Status: Acute Assessment and Plan: Patient reports unable to feel right leg below knee, unable to stand/bear weight. Xrays unremarkable. Now concerned for Stroke as cause of confusion (new) and right leg dysfunction. CT/CTA Brain ordered, will add MRI if CT negative. 09/29: MRI is pending. (3) Fall: Code(s): W19.XXXA - Unspecified fall, initial encounter Status: Acute Assessment and Plan: 09/27/23: Patient states she got up from the toilet and stated her right knee gave way causing her to fall backwards back onto the toilet. X-ray of right tib/fib, femur, and pelvis was negative for any acute fracture, there was note of osteopenia. Bruising noted to right posterior leg She denies any pain in her legs PT and OT ordered for evaluation as patient lives in assisted living, may need placement to long-term. 09/28: Report of head injury during fall, will get CT Brain. Concern that this could have been result of Stroke as right lower leg not functional since this fall 2 days ago. 09/29: MRI pending (4) Chronic pain: Qualifiers: Chronic pain type: other chronic pain Qualified Code(s): G89.29 - Other chronic pain Code(s): G89.29 - Other chronic pain Status: Chronic Assessment and Plan: 09/27/23: History of osteopenia with multiple old compression fractures of the spine. Taking gabapentin and Tylenol for pain control. However I am holding her Tylenol due to her liver enzymes being elevated Continue pain control with a one time dose of Toradol and switch her to oral Ultram. (5) Compression fracture: Status: Chronic Assessment and Plan: Chronic and likely non-contributory to acute complaints (6) Congestive heart failure: Code(s): I50.9 - Heart failure, unspecified Status: Chronic Assessment and Plan: 09/27/23: Patient restarted on home med Carvedilol, Lasix, and digoxin Bilateral lower extremity edema (7) Hypertension: Code(s): I10 - Essential (primary) hypertension Status: Chronic Assessment and Plan: 09/27/23: Restarted Lisinopril (8) Atrial fibrillation: Code(s): I48.91 - Unspecified atrial fibrillat
[2023-10-01 16:35] VITALS: BP 143/79; PULSE 73; RESP 16; TEMP 36.8; O2SAT 97
[2023-10-01 20:30] VITALS: O2SAT 97
[2023-10-01 20:59] VITALS: PULSE 85
--- NOTE | 2023-10-01 23:42 | PC.NURSE ---
Patient using call light to call to use bedside commode. Pateint transferred via jemal rg. Tolerated well. Patient assisted back to bed. Call light and belongings within reach. Bed alarm on.
[2023-10-02] VITALS: BP 139/90; PULSE 97; RESP 14; TEMP 36.8; O2SAT 92
[2023-10-02] MEDS: ACETAMINOPHEN 325 MG TABLET 650 MG PO ×3 (00:43→15:02)
--- NOTE | 2023-10-02 00:53 | PC.NURSE ---
Patient awake when nurse entered room and c/o generalized pain. PRN pain medication given with lance crackbetsy. Call light and belongings within reach.
--- NOTE | 2023-10-02 01:47 | PC.NURSE ---
Patient awake when nurse entered room. Patient states she has no current pain. Pleasant and smiling at nurse. Call light and belongings within reach.
--- NOTE | 2023-10-02 02:57 | PC.NURSE ---
Resting quietly. No further c/o observed. Call light and belongings.
--- NOTE | 2023-10-02 04:10 | PC.NURSE ---
Pt up to the commode with the giuseppe steady and assist of one. Pt voided 200 ml of clear, giorgio urine with a small soft, brown stool. Pt back to bed with the giuseppe steady and assist of one.
[2023-10-02] MEDS: traMADol HCL (*CRX) 25 MG TABLET PO ×3 (04:42→20:58)
--- NOTE | 2023-10-02 04:42 | PC.NURSE ---
Pt c/o upper epigastric pain and requested pain medication. Pt given Tramadol 25 mg PO to relieve c/o epigastric pain.
[2023-10-02 05:32] LABS: Basophils Absolute Auto 0.02 K/mm3 (0.00-0.10); Basophils Percent Auto 0.4 % (0.0-1.0); Eosinophils Absolute Auto 0.29 K/mm3 (0.02-0.50); Eosinophils Percent Auto 5.2 % (1.0-6.0); Hematocrit 36.4 % (35.0-42.0); Immature Granulocyte Absolute 0.05 K/mm3 (0.00-0.00); Immature Granulocyte Percent A 0.9 % (0.0-0.0); Lymphocytes Absolute Auto 0.78 K/mm3 (1.10-4.50); Mean Corpuscular Hemoglobin 31.1 pg (27.0-31.0); Mean Corpuscular Volume 94.3 fL (78.0-102.0); Mean Platelet Volume 10.1 fl (9.2-11.8); Monocytes Absolute Auto 0.59 K/mm3 (0.10-0.90); Monocytes Percent Auto 10.6 % (2.0-11.0); Neutrophils Absolute Auto 3.8 K/mm3 (1.7-7.2); Neutrophils Percent Auto 68.9 % (50.0-70.0); Platelet Count Result 191 K/mm3 (150-420); Red Blood Count 3.86 M/mm3 (4.20-5.40); Red Cell Distribution Width 14.6 % (11.6-14.4); White Blood Count 5.6 K/mm3 (4.8-10.8)
[2023-10-02] MEDS: POTASSIUM/PHOSPHORUS/SODIUM 1.5 GM PACKET 1 PACKET PO ×3 (06:01→21:01)
--- NOTE | 2023-10-02 06:01 | PC.NURSE ---
Pt given phos-nak medication in cranberry juice as ordered.
[2023-10-02 06:05] LABS: Albumin Level 2.7 g/dL (3.4-5.0); Anion Gap 8 mmol/L (8-16); Blood Urea Nitrogen 11 mg/dL (7-18); Calcium 8.2 mg/dL (8.5-10.1); Carbon Dioxide 24 mmol/L (21-32); Chloride 98 mmol/L (98-108); Estimated CRCL calculation 49 ml/min; Estimated Glomerular Filt Rate > 60; Glucose 107 mg/dL (70-99); Magnesium 2.2 mg/dL (1.8-2.4); Osmolality Calculated 269 mOsm/kg (285-295); Phosphorus 2.2 mg/dL (2.6-4.7); Sodium 130 mmol/L (136-145)
[2023-10-02 07:45] VITALS: BP 138/87; PULSE 87; RESP 16; TEMP 36.8; O2SAT 97
[2023-10-02 08:07] LABS: Phosphorus 2.3 mg/dL (2.6-4.7)
[2023-10-02 08:30] VITALS: PULSE 87; RESP 16; O2SAT 97
[2023-10-02 08:56] VITALS: PULSE 87
[2023-10-02] MEDS: MAGNESIUM OXIDE 400 MG TABLET PO (08:56)
[2023-10-02] MEDS: FUROSEMIDE 40 MG TABLET PO (08:56)
[2023-10-02] MEDS: lisinopriL 2.5 MG TABLET PO (08:56)
[2023-10-02] MEDS: DIGOXIN TAB 125 MCG TABLET PO (08:56)
[2023-10-02] MEDS: POLYSACCHARIDE IRON COMPLEX 150 MG CAPSULE PO (08:56)
[2023-10-02] MEDS: DABIGATRAN ETEXILATE 75 MG CAPSULE 150 MG PO ×2 (08:56→20:57)
[2023-10-02] MEDS: carvediloL 12.5 MG TABLET PO ×2 (08:56→20:57)
[2023-10-02] MEDS: PANTOPRAZOLE 40 MG TABLET PO ×2 (08:57→20:57)
[2023-10-02] MEDS: SODIUM CHLORIDE 500 MG TABLET PO ×2 (08:57→16:47)
--- NOTE | 2023-10-02 15:34 | PM.IMPN ---
Progress Note: A&P Assessment and Plan (1) Abdominal pain: Qualifiers: Abdominal location: periumbilical Qualified Code(s): R10.33 - Periumbilical pain Code(s): R10.9 - Unspecified abdominal pain Status: Chronic Assessment and Plan: 09/27/23: Patient reporting sharp constant abdominal pain especially after eating and drinking. She states pain radiates to flanks and back. Patient seen on 09/20/23 and 09/24/23 for similar symptoms. She was discharged from ED both times. CTA of abdomen-no aneurysm or dissection, shown multiple cysts of the kidneys which are indeterminate with one cyst measuring 10mm in the right kidney lower pole appearing hyperattenuating which was present on a recent CT of the abdomen/pelvis. Lipase 44, amylase 57, CRP 3.9, Alk phos 135, AST 48, ALT 98, WBC 6.3 Will check h. pylori US of abdomen ordered and will be obtained tomorrow. NPO after midnight. If US is abnormal, patient may benefit from a hida scan to look at gallbladder or further GI workup to rule out any gastric or duodenal ulcer. Check UA and culture if indicated Patient recently diagnosed with UTI on 09/13/23 and finished a course of Macrobid. One time dose of Toradol ordered IV, Order placed for Ultram Will hold her Tylenol 1g considering her AST/ALT are slightly elevated Order placed for Protonix BID and Maalox as needed 09/28: gallbladder ultrasound unremarkable. Possible gastric/duodenal ulcer, no signs of acute bleeding to indicate transfer for EGD. Early in the day patient complained only of epigastric pain but later in the day no longer complained of such. 10/02: unchanged, recommend outpatient GI appointment for consideration of EGD for possible peptic ulcer disease (2) Weakness of right leg: Code(s): R29.898 - Other symptoms and signs involving the musculoskeletal system Status: Acute Assessment and Plan: Patient reports unable to feel right leg below knee, unable to stand/bear weight. Xrays unremarkable. Now concerned for Stroke as cause of confusion (new) and right leg dysfunction. CT/CTA Brain ordered, will add MRI if CT negative. 09/29: MRI is pending. 10/02: MRI remains pending. If patient is still in the hospital on 10/04 when the MRI truck comes again we will proceed prior orders. If not, outpatient orders will be considered. (3) Fall: Code(s): W19.XXXA - Unspecified fall, initial encounter Status: Acute Assessment and Plan: 09/27/23: Patient states she got up from the toilet and stated her right knee gave way causing her to fall backwards back onto the toilet. X-ray of right tib/fib, femur, and pelvis was negative for any acute fracture, there was note of osteopenia. Bruising noted to right posterior leg She denies any pain in her legs PT and OT ordered for evaluation as patient lives in assisted living, may need placement to [facility]. 09/28: Report of head injury during fall, will get CT Brain. Concern that this could have been result of Stroke as right lower leg not functional since this fall 2 days ago. 09/29: MRI pending (4) Chronic pain: Qualifiers: Chronic pain type: other chronic pain Qualified Code(s): G89.29 - Other chronic pain Code(s): G89.29 - Other chronic pain Status: Chronic Assessment and Plan: 09/27/23: History of osteopenia with multiple old compression fractures of the spine. Taking gabapentin and Tylenol for pain control. However I am holding her Tylenol due to her liver enzymes being elevated Continue pain control with a one time dose of Toradol and switch her to oral Ultram. (5) Compression fracture: Status: Chronic Assessment and Plan: Chronic and likely non-contributory to acute complaints (6) Congestive heart failure: Code(s): I50.9 - Heart failure, unspecified Status: Chronic Assessment and Plan: 09/27/23: Patient restarted on home med Carvedilol, La
[2023-10-02 16:29] LABS: H pylori, Urea Breath NOT DETECTED (NOT DETECTED)
[2023-10-02 16:30] VITALS: BP 162/74; PULSE 89; RESP 18; TEMP 36.4; O2SAT 98
[2023-10-02 20:57] VITALS: PULSE 75
[2023-10-03] VITALS (8 sets, daily range): BP systolic 137–174; BP diastolic 70–77; PULSE 72–92; RESP 12–18; TEMP 36.3–36.9; O2SAT 95–100
[2023-10-03] MEDS: ACETAMINOPHEN 325 MG TABLET 650 MG PO ×3 (02:40→16:02)
--- NOTE | 2023-10-03 03:18 | PC.NURSE ---
report from osito, resumed care of pt.
[2023-10-03] MEDS: traMADol HCL (*CRX) 25 MG TABLET PO ×3 (04:35→21:16)
[2023-10-03 05:26] LABS: Basophils Absolute Auto 0.02 K/mm3 (0.00-0.10); Basophils Percent Auto 0.3 % (0.0-1.0); Eosinophils Absolute Auto 0.29 K/mm3 (0.02-0.50); Hematocrit 36.7 % (35.0-42.0); Hemoglobin 11.8 g/dL (11.7-13.8); Immature Granulocyte Absolute 0.04 K/mm3 (0.00-0.00); Immature Granulocyte Percent A 0.7 % (0.0-0.0); Lymphocytes Absolute Auto 0.79 K/mm3 (1.10-4.50); Lymphocytes Percent Auto 13.7 % (18.0-42.0); Mean Corpuscular HGB Conc 32.2 g/dL (32.0-36.0); Mean Corpuscular Hemoglobin 30.5 pg (27.0-31.0); Mean Corpuscular Volume 94.8 fL (78.0-102.0); Mean Platelet Volume 10.3 fl (9.2-11.8); Monocytes Absolute Auto 0.72 K/mm3 (0.10-0.90); Monocytes Percent Auto 12.5 % (2.0-11.0); Neutrophils Absolute Auto 3.9 K/mm3 (1.7-7.2); Neutrophils Percent Auto 67.8 % (50.0-70.0); Platelet Count Result 206 K/mm3 (150-420); Red Blood Count 3.87 M/mm3 (4.20-5.40); Red Cell Distribution Width 14.7 % (11.6-14.4); White Blood Count 5.8 K/mm3 (4.8-10.8)
[2023-10-03 05:43] LABS: Albumin Level 2.7 g/dL (3.4-5.0); Anion Gap 6 mmol/L (8-16); Blood Urea Nitrogen 16 mg/dL (7-18); Calcium 8.4 mg/dL (8.5-10.1); Carbon Dioxide 27 mmol/L (21-32); Chloride 99 mmol/L (98-108); Estimated CRCL calculation 39 ml/min; Estimated Glomerular Filt Rate > 60; Glucose 107 mg/dL (70-99); Osmolality Calculated 275 mOsm/kg (285-295); Potassium 4.4 mmol/L (3.5-5.1); Sodium 132 mmol/L (136-145)
[2023-10-03] MEDS: POTASSIUM/PHOSPHORUS/SODIUM 1.5 GM PACKET 1 PACKET PO ×3 (05:49→21:08)
--- NOTE | 2023-10-03 07:01 | PC.NURSE ---
report to sheryl, all questions answered
[2023-10-03] MEDS: POLYSACCHARIDE IRON COMPLEX 150 MG CAPSULE PO (09:21)
[2023-10-03] MEDS: DABIGATRAN ETEXILATE 75 MG CAPSULE 150 MG PO ×2 (09:21→21:09)
[2023-10-03] MEDS: PANTOPRAZOLE 40 MG TABLET PO ×2 (09:22→21:14)
[2023-10-03] MEDS: DIGOXIN TAB 125 MCG TABLET PO (09:22)
[2023-10-03] MEDS: SODIUM CHLORIDE 500 MG TABLET PO ×2 (09:22→16:01)
[2023-10-03] MEDS: lisinopriL 2.5 MG TABLET PO (09:22)
[2023-10-03] MEDS: MAGNESIUM OXIDE 400 MG TABLET PO (09:23)
[2023-10-03] MEDS: FUROSEMIDE 40 MG TABLET PO (09:24)
[2023-10-03] MEDS: carvediloL 12.5 MG TABLET PO ×2 (09:24→21:09)
--- NOTE | 2023-10-03 13:29 | P.PNIM_ITS ---
Progress Note: A&P Assessment and Plan (1) Abdominal pain: Qualifiers: Abdominal location: periumbilical Qualified Code(s): R10.33 - Periumbilical pain Code(s): R10.9 - Unspecified abdominal pain Status: Chronic Assessment and Plan: 09/27/23: * Patient reporting sharp constant abdominal pain especially after eating and drinking. She states pain radiates to flanks and back. * Patient seen on 09/20/23 and 09/24/23 for similar symptoms. She was discharged from ED both times. * CTA of abdomen-no aneurysm or dissection, shown multiple cysts of the kidneys which are indeterminate with one cyst measuring 10mm in the right kidney lower pole appearing hyperattenuating which was present on a recent CT of the abdomen/pelvis. * Lipase 44, amylase 57, CRP 3.9, Alk phos 135, AST 48, ALT 98, WBC 6.3 * Will check h. pylori * US of abdomen ordered and will be obtained tomorrow. NPO after midnight. If US is abnormal, patient may benefit from a hida scan to look at gallbladder or further GI workup to rule out any gastric or duodenal ulcer. * Check UA and culture if indicated * Patient recently diagnosed with UTI on 09/13/23 and finished a course of Macrobid. * One time dose of Toradol ordered IV, Order placed for Ultram * Will hold her Tylenol 1g considering her AST/ALT are slightly elevated * Order placed for Protonix BID and Maalox as needed 09/28: gallbladder ultrasound unremarkable. Possible gastric/duodenal ulcer, no signs of acute bleeding to indicate transfer for EGD. Early in the day patient complained only of epigastric pain but later in the day no longer complained of such. 10/02: unchanged, recommend outpatient GI appointment for consideration of EGD for possible peptic ulcer disease (2) Weakness of right leg: Code(s): R29.898 - Other symptoms and signs involving the musculoskeletal system Status: Acute Assessment and Plan: Patient reports unable to feel right leg below knee, unable to stand/bear weight. Xrays unremarkable. Now concerned for Stroke as cause of confusion (new) and right leg dysfunction. CT/CTA Brain ordered, will add MRI if CT negative. 09/29: MRI is pending. 10/02: MRI remains pending. If patient is still in the hospital on 10/04 when the MRI truck comes again we will proceed prior orders. If not, outpatient orders will be considered. (3) Fall: Code(s): W19.XXXA - Unspecified fall, initial encounter Status: Acute Assessment and Plan: 09/27/23: * Patient states she got up from the toilet and stated her right knee gave way causing her to fall backwards back onto the toilet. * X-ray of right tib/fib, femur, and pelvis was negative for any acute fracture, there was note of osteopenia. * Bruising noted to right posterior leg * She denies any pain in her legs * PT and OT ordered for evaluation as patient lives in assisted living, may need placement to shelter. 09/28: Report of head injury during fall, will get CT Brain. Concern that this could have been result of Stroke as right lower leg not functional since this fall 2 days ago. 09/29: MRI pending (4) Chronic pain: Qualifiers: Chronic pain type: other chronic pain Qualified Code(s): G89.29 - Other chronic pain Code(s): G89.29 - Other chronic pain Status: Chronic Assessment and Plan: 09/27/23: * History of osteopenia with multiple old compression fractures of the spine. * Taking gabapentin and Tylenol for pain control. However I am holding her Tylenol due to her liver enzymes being elevated * Continue pain control with a one time dose of Toradol an
[2023-10-03] MEDS: polyethylene glycoL 3350 17 GM POWD.PACK PO (16:01)
--- NOTE | 2023-10-03 19:25 | PC.NURSE ---
Note: Back to bed from chair using giuseppe steady lift and gait belt, pt able to lift self and stand, in bed hob elevated 45 degrees, continues to watch tv, instruction on nightly routine and meds, declined any assist with bedtime hygiene, call light and water within reach, no current complaints of needs expressed.
[2023-10-04] VITALS: BP 151/60; PULSE 73; RESP 16; TEMP 36.8; O2SAT 97
[2023-10-04] MEDS: ACETAMINOPHEN 325 MG TABLET 650 MG PO ×3 (00:32→16:50)
[2023-10-04] MEDS: traMADol HCL (*CRX) 25 MG TABLET PO ×3 (04:23→20:12)
[2023-10-04 05:09] LABS: Basophils Absolute Auto 0.03 K/mm3 (0.00-0.10); Basophils Percent Auto 0.5 % (0.0-1.0); Eosinophils Absolute Auto 0.28 K/mm3 (0.02-0.50); Eosinophils Percent Auto 4.6 % (1.0-6.0); Hematocrit 37.8 % (35.0-42.0); Hemoglobin 12.2 g/dL (11.7-13.8); Immature Granulocyte Absolute 0.04 K/mm3 (0.00-0.00); Immature Granulocyte Percent A 0.7 % (0.0-0.0); Lymphocytes Absolute Auto 0.91 K/mm3 (1.10-4.50); Mean Corpuscular HGB Conc 32.3 g/dL (32.0-36.0); Mean Corpuscular Hemoglobin 30.8 pg (27.0-31.0); Mean Corpuscular Volume 95.5 fL (78.0-102.0); Monocytes Absolute Auto 0.64 K/mm3 (0.10-0.90); Monocytes Percent Auto 10.5 % (2.0-11.0); Neutrophils Absolute Auto 4.2 K/mm3 (1.7-7.2); Neutrophils Percent Auto 68.7 % (50.0-70.0); Platelet Count Result 219 K/mm3 (150-420); Red Blood Count 3.96 M/mm3 (4.20-5.40); Red Cell Distribution Width 14.6 % (11.6-14.4); White Blood Count 6.1 K/mm3 (4.8-10.8)
[2023-10-04 05:25] LABS: Albumin Level 2.8 g/dL (3.4-5.0); Anion Gap 6 mmol/L (8-16); Blood Urea Nitrogen 15 mg/dL (7-18); Calcium 7.9 mg/dL (8.5-10.1); Carbon Dioxide 26 mmol/L (21-32); Chloride 99 mmol/L (98-108); Estimated CRCL calculation 44 ml/min; Estimated Glomerular Filt Rate > 60; Glucose 104 mg/dL (70-99); Osmolality Calculated 272 mOsm/kg (285-295); Phosphorus 2.9 mg/dL (2.6-4.7); Potassium 4.6 mmol/L (3.5-5.1); Sodium 131 mmol/L (136-145)
[2023-10-04] MEDS: POTASSIUM/PHOSPHORUS/SODIUM 1.5 GM PACKET 1 PACKET PO ×3 (05:28→22:58)
[2023-10-04 07:50] VITALS: BP 161/86; PULSE 81; RESP 16; TEMP 36.7; O2SAT 96
[2023-10-04] MEDS: polyethylene glycoL 3350 17 GM POWD.PACK PO (08:03)
[2023-10-04 08:06] VITALS: PULSE 81
[2023-10-04] MEDS: DABIGATRAN ETEXILATE 75 MG CAPSULE 150 MG PO ×2 (08:06→20:11)
[2023-10-04] MEDS: DIGOXIN TAB 125 MCG TABLET PO (08:06)
[2023-10-04] MEDS: SODIUM CHLORIDE 500 MG TABLET PO (08:06)
[2023-10-04] MEDS: lisinopriL 2.5 MG TABLET PO (08:07)
[2023-10-04] MEDS: MAGNESIUM OXIDE 400 MG TABLET PO (08:07)
[2023-10-04] MEDS: FUROSEMIDE 40 MG TABLET PO (08:07)
[2023-10-04 08:08] VITALS: PULSE 81
[2023-10-04] MEDS: carvediloL 12.5 MG TABLET PO ×2 (08:08→20:11)
[2023-10-04] MEDS: POLYSACCHARIDE IRON COMPLEX 150 MG CAPSULE PO (08:08)
[2023-10-04] MEDS: PANTOPRAZOLE 40 MG TABLET PO ×2 (08:08→20:12)
[2023-10-04] MEDS: DOCUSATE SODIUM 100 MG CAPSULE PO (08:09)
[2023-10-04 16:00] VITALS: BP 164/61; PULSE 73; RESP 16; TEMP 36.8; O2SAT 99
[2023-10-04] MEDS: SODIUM CHLORIDE 500 MG TABLET 1000 MG PO (16:49)
[2023-10-04 20:11] VITALS: PULSE 72
[2023-10-05] VITALS: BP 159/72; PULSE 72; RESP 16; TEMP 36.6; O2SAT 99
[2023-10-05] MEDS: ACETAMINOPHEN 325 MG TABLET 650 MG PO ×2 (02:28→08:11)
[2023-10-05 05:29] LABS: Basophils Absolute Auto 0.02 K/mm3 (0.00-0.10); Basophils Percent Auto 0.3 % (0.0-1.0); Eosinophils Percent Auto 3.2 % (1.0-6.0); Hematocrit 37.3 % (35.0-42.0); Hemoglobin 12.1 g/dL (11.7-13.8); Immature Granulocyte Absolute 0.04 K/mm3 (0.00-0.00); Immature Granulocyte Percent A 0.6 % (0.0-0.0); Lymphocytes Absolute Auto 1.04 K/mm3 (1.10-4.50); Lymphocytes Percent Auto 16.4 % (18.0-42.0); Mean Corpuscular HGB Conc 32.4 g/dL (32.0-36.0); Mean Corpuscular Hemoglobin 30.5 pg (27.0-31.0); Mean Platelet Volume 9.5 fl (9.2-11.8); Monocytes Absolute Auto 0.75 K/mm3 (0.10-0.90); Monocytes Percent Auto 11.8 % (2.0-11.0); Neutrophils Absolute Auto 4.3 K/mm3 (1.7-7.2); Neutrophils Percent Auto 67.7 % (50.0-70.0); Platelet Count Result 226 K/mm3 (150-420); Red Blood Count 3.97 M/mm3 (4.20-5.40); Red Cell Distribution Width 14.4 % (11.6-14.4); White Blood Count 6.3 K/mm3 (4.8-10.8)
[2023-10-05 05:56] LABS: Albumin Level 2.9 g/dL (3.4-5.0); Anion Gap 8 mmol/L (8-16); Blood Urea Nitrogen 12 mg/dL (7-18); Carbon Dioxide 25 mmol/L (21-32); Chloride 99 mmol/L (98-108); Estimated CRCL calculation 43 ml/min; Estimated Glomerular Filt Rate > 60; Glucose 100 mg/dL (70-99); Osmolality Calculated 273 mOsm/kg (285-295); Phosphorus 3.2 mg/dL (2.6-4.7); Potassium 4.6 mmol/L (3.5-5.1); Sodium 132 mmol/L (136-145)
[2023-10-05] MEDS: POTASSIUM/PHOSPHORUS/SODIUM 1.5 GM PACKET 1 PACKET PO (06:13)
[2023-10-05 07:49] VITALS: BP 152/57; PULSE 80; RESP 16; TEMP 36.9; O2SAT 97
[2023-10-05] MEDS: MAGNESIUM OXIDE 400 MG TABLET PO (08:07)
[2023-10-05] MEDS: DOCUSATE SODIUM 100 MG CAPSULE PO (08:08)
[2023-10-05] MEDS: DABIGATRAN ETEXILATE 75 MG CAPSULE 150 MG PO (08:08)
[2023-10-05] MEDS: POLYSACCHARIDE IRON COMPLEX 150 MG CAPSULE PO (08:09)
[2023-10-05] MEDS: SODIUM CHLORIDE 500 MG TABLET 1000 MG PO (08:09)
[2023-10-05 08:10] VITALS: PULSE 80
[2023-10-05] MEDS: DIGOXIN TAB 125 MCG TABLET PO (08:10)
[2023-10-05] MEDS: carvediloL 12.5 MG TABLET PO (08:10)
[2023-10-05] MEDS: FUROSEMIDE 40 MG TABLET PO (08:10)
[2023-10-05] MEDS: lisinopriL 2.5 MG TABLET PO (08:10)
[2023-10-05] MEDS: PANTOPRAZOLE 40 MG TABLET PO (08:11)
--- NOTE | 2023-10-05 09:17 | PM.DS ---
DS: Admitting Diagnosis Discharge Date 10/05/2023 Admitting Diagnosis abdominal pain, fall, chronic pain, compression fracture, hypertension, atrial fibrillation DS: Discharge Diagnosis Discharge Diagnosis (1) Abdominal pain: Qualifiers: Abdominal location: periumbilical Qualified Code(s): R10.33 - Periumbilical pain Code(s): R10.9 - Unspecified abdominal pain Status: Chronic (2) Weakness of right leg: Code(s): R29.898 - Other symptoms and signs involving the musculoskeletal system Status: Acute (3) Fall: Code(s): W19.XXXA - Unspecified fall, initial encounter Status: Acute (4) Chronic pain: Qualifiers: Chronic pain type: other chronic pain Qualified Code(s): G89.29 - Other chronic pain Code(s): G89.29 - Other chronic pain Status: Chronic (5) Compression fracture: Status: Chronic (6) Hypertension: Code(s): I10 - Essential (primary) hypertension Status: Chronic (7) Atrial fibrillation: Code(s): I48.91 - Unspecified atrial fibrillation Status: Chronic DS: Summary Hospital Course Reason for hospitalization: abdominal pain, right leg weakness, falls, unable to ambulate Hospital Course: This is an 87-year-old female patient who was previously residing at the assisted living facility [facility] where she had a fall on 09/26 and after words could not ambulate independently. Patient also complaining of epigastric pain which has been ongoing for much of the last month. She has been seen in the emergency department several times for this had negative workups and imaging. Again workup is unremarkable this time was CTA to rule out aortic or SMA syndrome as cause of patient's abdominal pain. Patient was admitted for PT and OT as well as observation regarding abdominal pain. After further review of charts and patient exam it is possible patient has an ulcer and could benefit from EGD however there is no sign of acute blood loss or emergent condition requiring transfer to . On further evaluation of the patient it is noted that her right lower extremity is significantly weaker than the left and the foot is turned outward with a bit of a footdrop which patient's POA noted happened on 09/26 and has not returned to normal since then. It is suspected the patient may have suffered a CVA or possibly a nonpainful spinal injury at the time of her fall on 09/26. MRI of the brain and spinal column or ordered but could not be captured because the MRI truck had mechanical failure. When the MRI truck came back yesterday the orders had been taken out of the system. She will get these MRIs tomorrow as an outpatient and the orders have been written for such. Patient was given p.r.n. pain medication for her abdominal pain and PT and OT have been working with her but she is still requiring sit to stand for mobilization and pivots. Patient will go to local skilled nursing [facility]hab. She has been ready to go to the skilled nursing for a couple of days but we were waiting on insurance authorization for such. Authorization has now been received. of note, patient has had mild hyponatremia while in the hospital with sodium around 130-132. We have started salt tabs twice daily and liberalized diet to a regular diet rather than heart healthy. She will have BMP drawn in 1 week with results to primary care. Status at Discharge Cognitive/behavioral status at discharge: awake, alert, confused per baseline, pleasant Functional status at discharge: wheelchair bound Overall status at discharge: patient is not back to baseline Time Spent with Patient Time attestation: Total time spent providing and/or coordinating discharge services: 40 minutes Time spent: Greater than 30 minutes Exam Narrative: GENERAL: Uncomfortable appearing, well-nourished, and in no acute distress. HEAD: Normocephalic, atraumatic. ENT:? Mucous membranes moist. CHEST: Cl
--- NOTE | 2023-10-05 10:05 | PC.NURSE ---
Report called to Esther at [facility]. Discharge planned for early afternoon. Esther voiced understanding of discharge instructions.
--- NOTE | 2023-10-05 12:05 | PC.NURSE ---
Discharge instructions given to patient's medical POA and POA voiced understanding. Report given to Esther at [facility]. Esther voiced understanding. Discharge instructions faxed and hand delivered to snf, along with printed prescriptions for new medications. Patient left unit in w/c, accompanied by [facility] staff member and patient's POA. Patient left hospital property in w/c. Personal items and supplies sent with patient.
--- NOTE | 2023-10-05 14:28 | PCCCNOTE ---
Outpatient auth received for brain MRI Auth # [id number] this is scheduled for 10/06/23. Clinicals faxed to [employer] [phone] for review to determine if auth approved for lumbar,cervical and thoracic spine MRI. Spoke to Ivania Bloom Gave information to Rhea Jaquez Requested determination to be faxed to [phone].
--- NOTE | 2023-10-09 08:58 | PC.NURSE ---
Discharge to [facility], instructions faxed and hard copy given, no questions
== END 2023-10-05 12:05 | DRG 556 ==
LOC: CHSED 10:44 → CHS2ND 10:52
PROVIDERS: Internal Medicine Critical Care Medicine; Nurse Practitioner; Nurse Practitioner Acute Care; Admitting Provider Internal Medicine; Emergency Provider Emergency Medicine; PCP Internal Medicine; Visit Provider Internal Medicine
DX: R29.898 Other symptoms and signs involving the musculoskeletal system (principal); E87.1 Hypo-osmolality and hyponatremia; I48.20 Chronic atrial fibrillation, unspecified; I11.0 Hypertensive heart disease with heart failure; I50.9 Heart failure, unspecified; R10.33 Periumbilical pain; G89.29 Other chronic pain; K21.9 Gastro-esophageal reflux disease without esophagitis; D64.9 Anemia, unspecified; R29.6 Repeated falls
CPT/HCPCS: 36415; 70450; 72170; 73552; 73590; 74174; 76705; 80053; 80069; 80162; 81001; 82150; 82272; 83013; 83605; 83690; 83735; 84100; 85025; 85610; 85730; 86140; 93005; 96374; 97110; 97161; 97165; 97530; 99285; A9270; G0378; J1885; Q9967

== ENCOUNTER 2023-10-06 07:35 | Outpatient (CLI) | payer MEDICARE, SELFPAY | END 2023-10-06 07:36 | disposition home or self-care (01) | LOC: CHSIMG 07:35 | PROVIDERS: PCP Nurse Practitioner; Visit Provider Nurse Practitioner | DX: R29.898 Other symptoms and signs involving the musculoskeletal system (principal) | CPT/HCPCS: 99199 ==

== ENCOUNTER 2023-10-11 16:23 | Outpatient (CLI) | payer MEDICARE, SELFPAY ==
--- NOTE | ~2023-10-11 | XR_ITS ---
EXAMINATION: 1. XR wrist LT min 3V 2. XR hand LT min 3V DATE: 10/11/2023 17:50 INDICATION: Left wrist and hand pain. TECHNIQUE: 4 views of left wrist and 3 views of left hand were obtained. COMPARISON: None. FINDINGS: LEFT WRIST: Bone alignment is normal. No fracture. There is diffuse osteopenia. There is severe osteo arthritis of triscaphe joint and first carpometacarpal joint. There are dystrophic calcifications in the wrist. LEFT HAND: There is ulnar subluxation of second and third middle phalanges with respect to the proxim al phalanges. No fracture. There is diffuse osteopenia. There is severe osteoarthritis of triscaphe j oint, first carpometacarpal joint, second-fifth proximal interphalangeal joints, and second, third, a nd fifth distal interphalangeal joints. There is mild osteoarthritis of first interphalangeal joint a nd moderate osteoarthritis of fourth distal interphalangeal joint. There are dystrophic calcification s at some of the interphalangeal joints. IMPRESSION: 1. Polyarticular osteoarthritis. Reviewed, dictated and finalized at location [facility]. [facility]ARMER IMPRESSION: 1. Polyarticular osteoarthritis.
== END 2023-10-11 16:24 | disposition home or self-care (01) ==
LOC: CHSIMG 16:24
PROVIDERS: PCP Internal Medicine; Visit Provider Internal Medicine
DX: M19.032 Primary osteoarthritis, left wrist (principal); M25.542 Pain in joints of left hand
CPT/HCPCS: 73110; 73130

== ENCOUNTER 2023-10-18 07:25 | Outpatient (NON) | payer MEDICARE, SELFPAY ==
[2023-10-18 07:43] LABS: Appearance Urine Clear (Clear); Bilirubin Urine Negative (Negative); Blood Urine Trace-Intact (Negative); Color Urine Yellow (Yellow); Glucose Urine UA Negative (Negative); Ketones Urine Negative (Negative); Leukocyte Esterase Ur 1+ LEU/UL (Negative); Nitrate Urine Positive (Negative); Protein Urine Negative (Negative); Specific Grav Ur >= 1.030 (1.010-1.020); Urobilinogen Urine 0.2 mg/dL (0.2-1.0)
[2023-10-18 07:48] LABS: Add Urine Microscopic? YES; Bacteria Urine 4+ /hpf; RBC Urine 0-2 /hpf (0-2); Squamous Epithelial Cell Urine Few /hpf (Few); WBC Urine 16-20 /hpf (0-3)
== END 2023-10-18 07:26 | disposition home or self-care (01) ==
LOC: CHSLAB 07:26
PROVIDERS: Visit Provider Internal Medicine
DX: N39.0 Urinary tract infection, site not specified (principal)
CPT/HCPCS: 81001; 87077; 87086; 87088; 87186

== ENCOUNTER 2023-12-06 07:00 | Outpatient (NON) | payer MEDICARE, SELFPAY ==
[2023-12-06 08:10] LABS: Basophils Absolute Auto 0.03 K/mm3 (0.00-0.10); Basophils Percent Auto 0.7 % (0.0-1.0); Eosinophils Absolute Auto 0.15 K/mm3 (0.02-0.50); Eosinophils Percent Auto 3.4 % (1.0-6.0); Hematocrit 34.7 % (35.0-42.0); Hemoglobin 11.2 g/dL (11.7-13.8); Immature Granulocyte Absolute 0.01 K/mm3 (0.00-0.00); Immature Granulocyte Percent A 0.2 % (0.0-0.0); Lymphocytes Absolute Auto 1.15 K/mm3 (1.10-4.50); Lymphocytes Percent Auto 26.1 % (18.0-42.0); Mean Corpuscular HGB Conc 32.3 g/dL (32.0-36.0); Mean Corpuscular Hemoglobin 30.1 pg (27.0-31.0); Mean Corpuscular Volume 93.3 fL (78.0-102.0); Mean Platelet Volume 11.1 fl (9.2-11.8); Monocytes Absolute Auto 0.54 K/mm3 (0.10-0.90); Monocytes Percent Auto 12.2 % (2.0-11.0); Neutrophils Absolute Auto 2.5 K/mm3 (1.7-7.2); Neutrophils Percent Auto 57.4 % (50.0-70.0); Platelet Count Result 139 K/mm3 (150-420); Red Blood Count 3.72 M/mm3 (4.20-5.40); Red Cell Distribution Width 15.9 % (11.6-14.4); White Blood Count 4.4 K/mm3 (4.8-10.8)
[2023-12-06 08:36] LABS: Alanine Aminotransferase 15 U/L (14-59); Albumin Level 2.8 g/dL (3.4-5.0); Alkaline Phosphatase 66 U/L (46-116); Amylase 87 U/L (25-115); Anion Gap 8 mmol/L (8-16); Aspartate Amino Transferase 12 U/L (15-37); Bilirubin,Total 0.7 mg/dL (0.00-1.00); Blood Urea Nitrogen 16 mg/dL (7-18); Calcium 8.2 mg/dL (8.5-10.1); Carbon Dioxide 27 mmol/L (21-32); Chloride 107 mmol/L (98-108); Digoxin 0.9 ng/mL (0.9-2.0); Estimated Glomerular Filt Rate > 60; Glucose 87 mg/dL (70-99); Lipase 43 U/L (16-77); Osmolality Calculated 294 mOsm/kg (285-295); Potassium 3.8 mmol/L (3.5-5.1); Sodium 142 mmol/L (136-145); Total Protein 5.4 g/dL (6.4-8.2); Uric Acid 5.1 mg/dL (2.6-6.0)
== END 2023-12-06 07:01 | disposition home or self-care (01) ==
LOC: CHSLAB 07:03
PROVIDERS: Visit Provider Internal Medicine
DX: D64.9 Anemia, unspecified (principal); I48.91 Unspecified atrial fibrillation; I50.9 Heart failure, unspecified; I10 Essential (primary) hypertension
CPT/HCPCS: 36415; 80053; 80162; 82150; 83690; 84550; 85025

== ENCOUNTER 2023-12-20 13:45 | Outpatient (CLI) | payer MEDICARE, SELFPAY ==
[2023-12-20 14:36] LABS: SARS-CoV-2 RNA PCR Negative (Negative)
[2023-12-20 14:38] LABS: Influenza A QL RT-PCR Negative (Negative); Influenza B QL RT-PCR Negative (Negative); RSV RNA, RT-PCR Negative (Negative)
== END 2023-12-20 13:46 | disposition home or self-care (01) ==
LOC: CHSLAB 13:46
PROVIDERS: PCP Internal Medicine; Visit Provider Internal Medicine
DX: J42 Unspecified chronic bronchitis (principal); R53.83 Other fatigue; R53.81 Other malaise; Z20.822 Contact with and (suspected) exposure to COVID-19
CPT/HCPCS: 87637

== ENCOUNTER 2024-04-13 13:48 | Inpatient (IN) | payer MEDICARE, SELFPAY ==
--- NOTE | ~2024-04-13 | CT_ITS ---
EXAMINATION: CT brain wo con DATE: 04/13/2024 15:39 INDICATION: ams/sepsis . TECHNIQUE: Computed tomography (CT) of the head was performed without intravenous contrast. The mA wa s adjusted according to patient size. Iterative reconstruction technique was employed. The dose-lengt h product was 681.00 mGy-cm. COMPARISON: 09/28/2023. FINDINGS: No acute intracranial hemorrhage or extra-axial fluid collection. No hydrocephalus, mass, or herniation. No acute ischemic infarct. Unremarkable dural venous sinus attenuation. No acute osseous abnormality. The aerated spaces are clear. Moderate atrophy and chronic white matter change. Atherosclerotic intracranial calcification. Minimal right basal ganglia calcification. IMPRESSION: No acute intracranial process. Reviewed, dictated and finalized at location K.
--- NOTE | ~2024-04-13 | XR_ITS ---
XR chest 1V portable Ordering provider: Macy King APRN History: 88 years Female with . pneumonia . Comparison: April 13, 2024 FINDINGS: MEDIASTINUM: The cardiac silhouette is slightly enlarged. LUNGS: No pneumothorax. Bilateral perihilar and lower lobe pneumonia. Bilateral pleural effusion more on the right side. OTHER: No free air under the diaphragm. Degenerative the spine. IMPRESSION: Bilateral perihilar and lower lobe pneumonia. Bilateral pleural effusion more on the right side. Reviewed, dictated and finalized at location A. IMPRESSION: Bilateral perihilar and lower lobe pneumonia. Bilateral pleural effusion more o n the right side.
--- NOTE | ~2024-04-13 | XR_ITS ---
EXAMINATION: XR chest 1V portable DATE: 04/18/2024 07:53 INDICATION: Pleural effusion TECHNIQUE: frontal view of the chest was obtained. COMPARISON: Chest radiograph dated 04/16/24 FINDINGS: Increasing opacities in bilateral mid and lower lung zones. This includes at least small patchy moder ate-sized bilateral pleural effusions. No pneumothorax. Cardiomegaly . IMPRESSION: 1. Increasing opacities in bilateral mid to lower lung zones consistent with small to potentially mod erate-sized bilateral pleural effusions with associated atelectasis and/or pneumonia. Reviewed, dictated and finalized at location A. IMPRESSION: 1. Increasing opacities in bilateral mid to lower lung zones consistent with sm all to potentially moderate-sized bilateral pleural effusions with associated a telectasis and/or pneumonia.
--- NOTE | ~2024-04-13 | CT_ITS ---
CT Scan of the Chest without Contrast: Clinical Indication: Pleural effusion, shortness of breath Technique: Contiguous sections were acquired throughout the chest without intravenous contrast. Dose reduction technique was used on this scan by utilizing automated exposure control and iterative recon struction technique. The dose-length product (DLP) was 247.55 mGy-cm. Findings: There is no evidence of any significant mediastinal, hilar or axillary lymphadenopathy. Possible mild cardiomegaly. No aortic aneurysm. No pericardial effusion. Large bilateral pleural effusions are present, with near complete bilateral lower lobe atelectasis an d additional partial dependent atelectasis in the remainder of the lungs. Images through the upper abdomen reveal no abnormalities. There is severe compression fracture deform ities of T7, T8 and T12. Moderate L1 compression fracture present. Suspected mild partially imaged co mpression fracture of L2. There is mild compression fracture of T2. Impression: Large bilateral pleural effusions with complete bilateral lower lobe atelectasis. Numerous spinal compression fractures, as detailed above. Reviewed, dictated and finalized at location . Impression: Large bilateral pleural effusions with complete bilateral lower lobe atelectasi s. Numerous spinal compression fractures, as detailed above.
--- NOTE | ~2024-04-13 | XR_ITS ---
EXAMINATION: XR chest 1V portable Exam Date/Time: 04/13/2024 15:20 CDT HISTORY: sepsis/ams Comparison: None. RESULT: Lines, tubes, and devices: Partially visualized lumbar fusion hardware. Lungs and pleura: Mild diffuse reticular opacities. Segmental left basilar airspace disease. Moderat e left and mild right costophrenic angle blunting. Cardiomediastinal silhouette: Stable. Other: No acute osseous or upper abdominal finding. IMPRESSION: Segmental left basilar atelectasis/consolidation. Moderate left and small right pleural effusions. Mi ld interstitial edema. Reviewed, dictated and finalized at location K. IMPRESSION: Segmental left basilar atelectasis/consolidation. Moderate left and small right pleural effusions. Mild interstitial edema.
--- NOTE | 2024-04-13 13:51 | ED.LOWEXIN ---
HPI - Extremity Injury (Lower) General Chief Complaint: Extremity Problem,Nontraumatic Stated Complaint: patti lower ext edema Source: patient and family Mode of arrival: other ( Patient uses Mayte lift) Limitations: altered mental status History of Present Illness HPI Narrative: Patient is an 88-year-old female lives at the nursing facility and has lots of chronic problems however she is having worse confusion this week as well as vision changes for decreased vision bilaterally and bilateral lower extremity edema which is much worse than normal. She normally is bed-bound or wheelchair-bound but uses devices to get around however she is wanting to just stay in bed now. patient has AFib without anticoagulation due to her age as well as CHF. MD complaint: other ( Bilateral lower extremity edema) Onset (ago): week(s) (1) Type of Injury: other ( no definite injury or falls) Place: home Severity: moderate Relieving factors: nothing Exacerbating factors: nothing Context: other ( bed-bound worse than normal) Other symptoms: confusion Related Data Home Medications Medication Instructions Recorded Confirmed carvedilol 25 mg tablet 12.5 mg PO Q12H 10/15/19 04/13/24 digoxin 125 mcg (0.125 mg) tablet 125 mcg PO DAILY 10/15/19 04/13/24 docusate sodium 100 mg capsule 100 mg PO DAILY 10/15/19 04/13/24 furosemide 40 mg tablet 40 mg PO QAM 10/15/19 04/13/24 lisinopril 2.5 mg tablet 2.5 mg PO DAILY 10/15/19 04/13/24 magnesium oxide 400 mg (241.3 mg 400 mg PO DAILY 10/15/19 04/13/24 magnesium) tablet (MagOx) dabigatran etexilate 150 mg 150 mg PO BID 09/20/23 04/13/24 capsule (Pradaxa) polysaccharide iron complex 150 mg 150 mg PO DAILY 09/20/23 04/13/24 iron capsule (iFerex 150) sodium di- and 1 tablet PO TID 09/20/23 04/13/24 monophosphate-potassium phos monobasic 250 mg tablet (Phospho-Peg Neutral) gabapentin 100 mg capsule 100 mg PO BID 09/28/23 04/13/24 Allergies Allergy/AdvReac Type Severity Reaction Status Date / Time adhesive tape Allergy Mild hives Verified 04/13/24 15:35 Penicillins Allergy Unknown LEGS AND Verified 04/13/24 15:35 ARMS TURNED PURPLE Review of Systems Review of Systems: All systems reviewed & are unremarkable except as noted in HPI and below Constitutional: Constitutional: Reports no additional constitutional complaints Eyes: Eyes: Reports no additional eye complaints ENT: Reports system reviewed and no additional complaints, except as documented Cardiovascular: Cardiovascular: Reports no additional cardiovascular complaints Respiratory: Respiratory: Reports no additional respiratory complaints Gastrointestinal: Gastrointestinal: Reports no additional gastrointestinal complaints Genitourinary: Genitourinary: Reports no additional female genitourinary complaints Musculoskeletal: Musculoskeletal: Reports no additional musculoskeletal complaints Integumentary/Breasts: Skin/Breast: Reports system reviewed and no additional complaints, except as docu Neurologic: Reports system reviewed and no additional complaints, except as documented Psychiatric: Psychiatric: Reports no additional psychiatric complaints Endocrine: Endocrine: Reports no additional endocrine complaints Hematologic/Lymphatic: Hematologic/Lymphatic: Reports no additional hematologic/lymphatic complaints Allergic/Immunologic: Allergic/Immunologic: Reports no additional allergic/immunologic complaints PMFSH Past Medical History Medical History Atrial fibrillation Congestive heart failure Heart disease Hypertension Surgical History Surgical History H/O: hysterectomy History of section History of hip replacement (~06/2019) Right bipolar History of lumbar surgery fusion with instrumentation Family History Family History Oth
[2024-04-13 14:00] VITALS: BP 114/85; PULSE 57; RESP 20; TEMP 36.5; O2SAT 97
--- NOTE | 2024-04-13 14:02 | ECG_ITS ---
Test Date: 2024-04-13 14:40:04 Measurements Intervals [place] Rate: 60 P: 0 NC: 0 QRS: -10 QRSD: 69 T: 158 QT: 426 QTc: 428 Interpretive Statements POOR QUALITY TRACING COULD AFFECT INTERPRETATION ATRIAL FIBRILLATION VENTRICULAR PREMATURE COMPLEXES ANTEROSEPTAL MYOCARDIAL INFARCTION , PROBABLY OLD ST-T WAVE ABNORMALITY IN HIGH LATERAL LEADS- CONSIDER ISCHEMIA BASELINE ARTIFACT- I, II, III, AVR, AVL, AVF, V1-V6 ABNORMAL ECG No previous ECG available for comparison Electronically Signed On 04-13-2024 15:05:17 CDT by Rui Garcia D.O.
[2024-04-13 14:47] LABS: Basophils Absolute Auto 0.01 K/mm3 (0.00-0.10); Basophils Percent Auto 0.1 % (0.0-1.0); Eosinophils Absolute Auto 0.03 K/mm3 (0.02-0.50); Eosinophils Percent Auto 0.2 % (1.0-6.0); Hematocrit 35.1 % (35.0-42.0); Hemoglobin 11.3 g/dL (11.7-13.8); Immature Granulocyte Absolute 0.17 K/mm3 (0.00-0.00); Lymphocytes Absolute Auto 1.32 K/mm3 (1.10-4.50); Lymphocytes Percent Auto 7.5 % (18.0-42.0); Mean Corpuscular HGB Conc 32.2 g/dL (32-36); Mean Corpuscular Hemoglobin 28.5 pg (27.0-31.0); Mean Corpuscular Volume 88.6 fL (78.0-102.0); Mean Platelet Volume 9.3 fl (9.2-11.8); Monocytes Absolute Auto 0.73 K/mm3 (0.10-0.90); Monocytes Percent Auto 4.1 % (2.0-11.0); Neutrophils Absolute Auto 15.38 K/mm3 (1.70-7.20); Neutrophils Percent Auto 87.1 % (50.0-70.0); Platelet Count Result 283 K/mm3 (150-420); Red Blood Count 3.96 M/mm3 (4.20-5.40); Red Cell Distribution Width 15.9 % (11.6-14.4); White Blood Count 17.6 K/mm3 (4.8-10.8)
[2024-04-13 14:58] LABS: Bilirubin Urine Negative (Negative); Blood Urine Trace-intact (Negative); Color Urine Light Yellow (Yellow); Glucose Urine UA Negative (Negative); Ketones Urine Negative (Negative); Leukocyte Esterase Ur Trace LEU/UL (Negative); Nitrate Urine Positive (Negative); Protein Urine Negative (Negative); Specific Grav Ur 1.015 (1.010-1.020); Urobilinogen Urine 0.2 mg/dL (0.2-1.0); pH Urine 5.5 (5.0-8.0)
--- NOTE | 2024-04-13 15:02 | PC.NURSE ---
report to alyse pires
[2024-04-13 15:05] LABS: Lactic Acid Reflex 1.7 mmol/L (0.4-2.0)
[2024-04-13 15:07] LABS: Albumin Level 1.8 g/dL (3.4-5.0); Alkaline Phosphatase 128 U/L (46-116); Anion Gap 6 mmol/L (4-12); Aspartate Amino Transferase 14 U/L (15-37); Bilirubin,Total 0.7 mg/dL (0.00-1.00); Blood Urea Nitrogen 19 mg/dL (7-18); Calcium 8.2 mg/dL (8.5-10.1); Carbon Dioxide 31 mmol/L (21-32); Chloride 96 mmol/L (98-108); Estimated CRCL calculation 31 ml/min; Estimated Glomerular Filt Rate 50; Glucose 112 mg/dL (70-99); Osmolality Calculated 279 mOsm/kg (285-295); Potassium 2.7 mmol/L (3.5-5.1); Sodium 133 mmol/L (136-145); Total Protein 5.4 g/dL (6.4-8.2)
[2024-04-13 15:08] LABS: Alanine Aminotransferase < 6 U/L (14-59)
[2024-04-13 15:09] LABS: NT Pro B Type Natriuretic Pept 9765 pg/mL (0-450)
[2024-04-13 15:10] LABS: Troponin I 39.2 ng/L (0.00-60.4)
[2024-04-13 15:11] LABS: Add Urine Microscopic? YES; Amorphous Sediment Urine Heavy; Appearance Urine Cloudy (Clear); Bacteria Urine 4+ /hpf; RBC Urine 0-2 /hpf (0-2)
--- NOTE | 2024-04-13 16:04 | ECG_ITS ---
Test Date: 2024-04-13 16:12:09 Measurements Intervals [place] Rate: 64 P: 0 VT: 0 QRS: -4 QRSD: 77 T: 189 QT: 366 QTc: 379 Interpretive Statements ATRIAL FIBRILLATION VENTRICULAR PREMATURE COMPLEXES ST-T WAVE ABNORMALITY IN ANTEROLAT/HIGH LAT LEADS- CONSIDER ISCHEMIA BASELINE ARTIFACT- I, II, III, AVR, AVL, AVF, V1-V6 ABNORMAL ECG Compared to ECG 04/13/2024 14:40:04 NO SIGNIFICANT CHANGE Electronically Signed On 04-13-2024 20:50:30 CDT by Rui Garcia D.O.
[2024-04-13] MEDS: POTASSIUM BICARBONATE 25 MEQ TABEF PO (16:22)
[2024-04-13] MEDS: FUROSEMIDE INJ 20 MG/2 ML VIAL IV PUSH (16:22)
[2024-04-13] MEDS: levoFLOXacin 500 MG/D5W 100 ML 500 MG/100 ML BAG 100 MG IVPB (16:23)
--- NOTE | 2024-04-13 17:05 | PC.NURSE ---
Patient arrived to unit on stretcher from ED. Patient required 4 assist and maxi slide to transfer from stretcher to bed. Patient and caregiver educated on hospital policies, visiting hours, call light, bed controls, rapid response, and fall prevention. Written education given related to use of pradaxa, and CHF. Patient confused, but caregiver voiced understanding. Patient not noted to have any personal belongings other than a blanket from home.
[2024-04-13 17:18] VITALS: BP 134/63; PULSE 72; RESP 16; TEMP 35.9; O2SAT 95; BMI 27.0
[2024-04-13] MEDS: GABAPENTIN 100 MG CAPSULE PO (17:49)
[2024-04-13] MEDS: SODIUM CHLORIDE 1 GM TABLET PO (17:49)
[2024-04-13] MEDS: levoFLOXacin 250 MG/D5W 50 ML 250 MG/50 ML BAG 50 MG IVPB (17:51)
[2024-04-13] MEDS: ONDANSETRON INJ 4 MG/2 ML VIAL IV PUSH (18:02)
[2024-04-13] MEDS: traMADol HCL (*CRX) 50 MG TABLET PO (18:02)
--- NOTE | 2024-04-13 19:52 | PC.NURSE ---
Patient very anxious this evening. Several anxious complaints voiced. POA aware. Call placed to [facility]. [employer] ordered medication to help anxiety. POA aware of this and agrees to medication.
[2024-04-13] MEDS: DABIGATRAN ETEXILATE 75 MG CAPSULE PO (20:44)
[2024-04-13] MEDS: LORazepam (*CRX) 1 MG TABLET PO (20:45)
[2024-04-13 22:00] VITALS: BP 117/47; PULSE 73; RESP 16; TEMP 36.4; O2SAT 97
[2024-04-14] VITALS: BP 117/47; PULSE 73; RESP 16; TEMP 36.4; O2SAT 97
[2024-04-14 06:59] LABS: Basophils Absolute Auto 0.01 K/mm3 (0.00-0.10); Basophils Percent Auto 0.1 % (0.0-1.0); Eosinophils Absolute Auto 0.03 K/mm3 (0.02-0.50); Eosinophils Percent Auto 0.2 % (1.0-6.0); Hematocrit 29.6 % (35.0-42.0); Hemoglobin 9.6 g/dL (11.7-13.8); Immature Granulocyte Absolute 0.15 K/mm3 (0.00-0.00); Immature Granulocyte Percent A 1.1 % (0.0-0.0); Lymphocytes Absolute Auto 1.02 K/mm3 (1.10-4.50); Lymphocytes Percent Auto 7.2 % (18.0-42.0); Mean Corpuscular HGB Conc 32.4 g/dL (32-36); Mean Corpuscular Volume 89.4 fL (78.0-102.0); Mean Platelet Volume 9.2 fl (9.2-11.8); Monocytes Absolute Auto 0.74 K/mm3 (0.10-0.90); Monocytes Percent Auto 5.2 % (2.0-11.0); Neutrophils Absolute Auto 12.25 K/mm3 (1.70-7.20); Neutrophils Percent Auto 86.2 % (50.0-70.0); Platelet Count Result 194 K/mm3 (150-420); Red Blood Count 3.31 M/mm3 (4.20-5.40); Red Cell Distribution Width 16.1 % (11.6-14.4); White Blood Count 14.2 K/mm3 (4.8-10.8)
[2024-04-14 07:08] LABS: Anion Gap 4 mmol/L (4-12); Blood Urea Nitrogen 18 mg/dL (7-18); Calcium 7.7 mg/dL (8.5-10.1); Carbon Dioxide 33 mmol/L (21-32); Chloride 97 mmol/L (98-108); Estimated CRCL calculation 33 ml/min; Estimated Glomerular Filt Rate 55; Glucose 80 mg/dL (70-99); Osmolality Calculated 278 mOsm/kg (285-295); Potassium 2.9 mmol/L (3.5-5.1); Sodium 134 mmol/L (136-145)
[2024-04-14 08:25] LABS: Magnesium 1.6 mg/dL (1.8-2.4)
--- NOTE | 2024-04-14 08:25 | PM.IMHP ---
H&P: HPI History of Present Illness Date/Time: 04/14/24 08:25 Chief Complaint: Confusion/weakness Narrative: Patient is an 88-year-old female who presented the emergency department from her long care nursing facility for worsening confusion, vision changes, weakness, and bilateral lower extremity edema. Patient has a past history AFib, CHF, CAD, and hypertension. Patient was not very forthcoming during history and physical was information is coming from the medical chart. As per the ER record patient is bedbound or wheelchair bound but can use devices to get around staff had reported she recently just to stay bed and had not been eating well. During my assessment patient just wanted to be left alone and stated she wanted to sleep. Patient denied any chest pain shortness a breath nausea vomiting, dizziness fever chills. Initial findings emergency department did show a WBC of 17.6, HGB 9.6, NA 134, K+ 2.9, mag 1.6, proBNP 9765,albumin of 1.8, UA nitrate and leukocyte +. CXR showed pulmonary edema and patient 3+ pitting edema BLE and 2+ pitting edema BUE. Patient was admitted to the medical unit for further treatment of CHF exacerbation, hypokalemia, UTI, and hypoalbuminemia. Did speak with patient regarding code status and reports she wants to be DNR and DNI. Review of Systems Review of Systems: All systems reviewed & are unremarkable except as noted in HPI and below PMFSH Past Medical History Medical History Atrial fibrillation Congestive heart failure Heart disease Hypertension Surgical History Surgical History H/O: hysterectomy History of section History of hip replacement (~06/2019) Right bipolar History of lumbar surgery fusion with instrumentation Family History Family History Other Heart disease Hypertension Social History Social History Smoking packs per day: 0.25 Smoking cigarettes per day: 5.0 Years smoked: 2 Smoking pack-years: 0.50 Smoking status: Never smoker Tobacco type: cigarettes Second hand tobacco smoke exposure: No Alcohol intake: former Substance use: never Substance use type: does not use Do You Feel Safe in your Home?: Yes Lack of Transportation: No Lack of Food: Never True Current Housing: I Have Housing Concerned About Future Housing: No Difficulty Paying Gas/Electric Bills: No Difficulty Paying for Meds: No Currently Unemployed: No Education: High School Diploma/GED Difficulty w/ Childcare or Family Care: No Living arrangements: detention Occupation/Education: retired Spiritual care concerns: No Meds Home Medications and Allergies Home Medications Medication Instructions Recorded Confirmed Type carvedilol 25 mg tablet 12.5 mg PO Q12H 10/15/19 04/13/24 History digoxin 125 mcg (0.125 mg) tablet 125 mcg PO DAILY 10/15/19 04/13/24 History docusate sodium 100 mg capsule 100 mg PO DAILY 10/15/19 04/13/24 History furosemide 40 mg tablet 40 mg PO QAM 10/15/19 04/13/24 History lisinopril 2.5 mg tablet 2.5 mg PO DAILY 10/15/19 04/13/24 History magnesium oxide 400 mg (241.3 mg 400 mg PO DAILY 10/15/19 04/13/24 History magnesium) tablet (MagOx) dabigatran etexilate 150 mg 150 mg PO BID 09/20/23 04/13/24 History capsule (Pradaxa) polysaccharide iron complex 150 mg 150 mg PO DAILY 09/20/23 04/13/24 History iron capsule (iFerex 150) sodium di- and 1 tablet PO TID 09/20/23 04/13/24 History monophosphate-potassium phos monobasic 250 mg tablet (Phospho-Peg Neutral) polyethylene glycol 3350 17 gram 17 g PO BID #30 ea 09/24/23 04/13/24 Rx oral powder packet (Miralax) gabapentin 100 mg capsule 100 mg PO BID 09/28/23 04/13/24 History acetaminophen 325 mg tablet 650
[2024-04-14 08:30] VITALS: BP 101/43; PULSE 67; RESP 16; TEMP 36.4; O2SAT 97
[2024-04-14] MEDS: FUROSEMIDE INJ 40 MG/4 ML VIAL IV PUSH (09:03)
[2024-04-14 09:07] VITALS: PULSE 67
[2024-04-14] MEDS: GABAPENTIN 100 MG CAPSULE PO ×2 (09:07→18:10)
[2024-04-14] MEDS: MAGNESIUM OXIDE 400 MG TABLET PO (09:07)
[2024-04-14] MEDS: lisinopriL 2.5 MG TABLET PO (09:07)
[2024-04-14] MEDS: DIGOXIN TAB 125 MCG TABLET PO (09:07)
[2024-04-14] MEDS: PANTOPRAZOLE 40 MG TABLET PO (09:07)
[2024-04-14] MEDS: DABIGATRAN ETEXILATE 75 MG CAPSULE PO ×2 (09:07→21:22)
[2024-04-14] MEDS: carvediloL 12.5 MG TABLET PO (09:07)
[2024-04-14] MEDS: POTASSIUM CHLORIDE 20 MEQ PACKET (FOR LIQUID) 40 MEQ PO (09:30)
[2024-04-14] MEDS: KCL 20 MEQ/SW 100 ML 100 ML 50 MEQ IVPB ×2 (09:31→12:42)
[2024-04-14] MEDS: MAGNESIUM SULF 2 GM/WATER 50ML 2 GM/50 ML BAG IVPB (09:49)
[2024-04-14] MEDS: ALBUMIN HUMAN 25% 25 GM/100 ML 100 ML IVPB (09:53)
[2024-04-14] MEDS: traMADol HCL (*CRX) 50 MG TABLET PO (12:51)
[2024-04-14 16:40] VITALS: BP 113/35; PULSE 58; RESP 18; TEMP 36.1; O2SAT 99
[2024-04-14 21:22] VITALS: PULSE 48
[2024-04-15] VITALS (9 sets, daily range): BP systolic 106–135; BP diastolic 38–62; PULSE 48–71; RESP 16–19; TEMP 36.3–36.5; O2SAT 93–98
[2024-04-15 05:11] LABS: Hematocrit 28.2 % (35.0-42.0); Hemoglobin 8.9 g/dL (11.7-13.8); Mean Corpuscular HGB Conc 31.6 g/dL (32-36); Mean Corpuscular Volume 91.9 fL (78.0-102.0); Mean Platelet Volume 9.7 fl (9.2-11.8); Platelet Count Result 177 K/mm3 (150-420); Red Blood Count 3.07 M/mm3 (4.20-5.40); Red Cell Distribution Width 16.7 % (11.6-14.4)
[2024-04-15 05:33] LABS: Alanine Aminotransferase < 6 U/L (14-59); Albumin Level 1.7 g/dL (3.4-5.0); Alkaline Phosphatase 85 U/L (46-116); Anion Gap 2 mmol/L (4-12); Aspartate Amino Transferase 13 U/L (15-37); Bilirubin,Total 0.7 mg/dL (0.00-1.00); Blood Urea Nitrogen 20 mg/dL (7-18); Calcium 7.8 mg/dL (8.5-10.1); Carbon Dioxide 32 mmol/L (21-32); Chloride 99 mmol/L (98-108); Estimated CRCL calculation 33 ml/min; Estimated Glomerular Filt Rate 56; Glucose 92 mg/dL (70-99); Magnesium 2.3 mg/dL (1.8-2.4); Osmolality Calculated 278 mOsm/kg (285-295); Sodium 133 mmol/L (136-145); Total Protein 4.5 g/dL (6.4-8.2)
[2024-04-15] MEDS: FUROSEMIDE INJ 40 MG/4 ML VIAL IV PUSH (09:32)
[2024-04-15] MEDS: DABIGATRAN ETEXILATE 75 MG CAPSULE PO ×2 (09:32→20:46)
[2024-04-15] MEDS: MAGNESIUM OXIDE 400 MG TABLET PO (09:33)
[2024-04-15] MEDS: PANTOPRAZOLE 40 MG TABLET PO (09:33)
[2024-04-15] MEDS: carvediloL 12.5 MG TABLET PO (09:33)
[2024-04-15] MEDS: POTASSIUM CHLORIDE 20 MEQ PACKET (FOR LIQUID) PO (09:33)
[2024-04-15] MEDS: GABAPENTIN 100 MG CAPSULE PO ×2 (09:33→17:40)
[2024-04-15] MEDS: lisinopriL 2.5 MG TABLET PO (09:33)
[2024-04-15] MEDS: DIGOXIN TAB 125 MCG TABLET PO (09:33)
[2024-04-15] MEDS: ACETAMINOPHEN 325 MG TABLET 650 MG PO (09:39)
--- NOTE | 2024-04-15 10:09 | PM.IMPN ---
Progress Note: A&P Assessment and Plan (1) Edema due to hypoalbuminemia: Code(s): E88.09 - Other disorders of plasma-protein metabolism, not elsewhere classified Status: Acute Assessment and Plan: Additional use of albumin today will monitor albumin levels Edema is due to hypoalbuminemia ? Failure to thrive Albumin goes from1.8 to 1.7 (2) Acute exacerbation of CHF (congestive heart failure): Qualifiers: Heart failure type: unspecified Qualified Code(s): I50.9 - Heart failure, unspecified Code(s): I50.9 - Heart failure, unspecified Status: Acute Assessment and Plan: IV lasix today valenzuela catheter Echo to be completed (3) Acute UTI: Code(s): N39.0 - Urinary tract infection, site not specified Status: Acute Assessment and Plan: IV Rocephin (4) Hypokalemia: Code(s): E87.6 - Hypokalemia Status: Acute Assessment and Plan: Potassium given and current potassium 4.0. will continue to monitor carvedilol discontinued as heart rate remains low and patient is on digoxin I will have echo completed today Patient remains a DNR Subjective Date/time seen: 04/15/24 10:09 Interval history: reviewed labs adjusted medication and treatment accordingly reviewed vitals low discussed plan of care with patient will add Protein shake ? Failure to thrive and Echo to be completed. Exam Narrative: Physical Exam: GENERAL: Frail elderly female mostly bedbound and wheelchair bound Alert and oriented x 3. No acute distress. EYES: EOMI. No scleral icterus. PERRLA. HEENT: Moist mucous membranes. LUNGS: Diminished no use of accessory muscles CARDIOVASCULAR: Regular rate and rhythm. No murmur. No JVD. S1-S2 ABDOMEN: Soft, mild tenderness and non-distended. No palpable masses. EXTREMITIES: 3+ edema BLE and 3+ pitting edema BUE, deep tissue bruising SKIN: No rashes or lesions. Skin warm, dry. NEUROLOGIC: No focal neurological deficits. PSYCHIATRIC: Appropriate mood and affect. Good judgement and insight. No visual or auditory hallucinations. No suicidal or homicidal ideation. Objective Data Vital Signs Vital Signs: Vital Signs - 24 hr 04/14/24 16:40 04/14/24 21:22 04/15/24 00:00 Temperature 97 F L 97.6 F Pulse Rate 58 L 48 L 54 L Respiratory Rate 18 16 Blood Pressure 113/35 L 125/41 L Pulse Oximetry 99 93 Oxygen Delivery Room Air Room Air 04/15/24 07:50 04/15/24 09:33 04/15/24 09:33 Temperature 97.5 F L Pulse Rate 59 L 59 L 59 L Respiratory Rate 18 Blood Pressure 106/38 L Pulse Oximetry 95 Oxygen Delivery Room Air Intake/Output Intake/Output: Intake & Output 04/12/24 04/13/24 04/14/24 04/15/24 23:59 23:59 23:59 23:59 Intake Total 150 700 200 Output Total 0 1250 100 Balance 150 -550 100 Meds/Results Medications: Active Medications Generic Name Dose Route Start Last Admin Trade Name Shakir PRN Reason Stop Dose Admin Acetaminophen 650 mg 04/13/24 16:27 04/15/24 09:39 Acetaminophen 325 Mg Tablet PO 650 mg Q6H PRN Administration Mild Pain (1-3) Or Fever Albuterol 1.25 mg 04/15/24 12:30 Albuterol Sulfate Neb 1.25 Mg/3 Ml Inh INHALATION Q6HRT ELVIN Dabigatran 75 mg 04/13/24 21:00 04/15/24 09:32 Dabigatran Etexilate 75 Mg Capsule PO 75 mg Q12HR ELVIN Administration Digoxin 125 mcg 04/14/24 09:00 04/15/24 09:33 Digoxin Tab 125 Mcg Tablet PO 125 mcg DAILY ELVIN Administration Furosemide 40 mg 04/14/24 09:00 04/15/24 09:32 Furosemide Inj 40 Mg/4 Ml Vial IV PUSH 40 mg DAILY ELVIN Administration Gabapentin 100 mg 04/13/24 17:00 04/15/24 09:33 Gabapentin 100 Mg Capsule PO 100 mg BID ELVIN Administration Ceftriaxone Sodium 1 gm in 50 mls @ 100 mls/hr 04/14/24 09:00 04/15/24 09:32 Rocephin 1 Gm/Ns 50 Ml IVPB 100 mls/hr Q24H ELVIN Administration Albumin Human 100 mls @ 60 mls/hr 04/15/24 09:45 Albutei
[2024-04-15] MEDS: ALBUMIN HUMAN 25% 25 GM/100 ML 100 ML IVPB ×2 (11:04→12:49)
[2024-04-15] MEDS: ALBUTEROL SULFATE NEB 1.25 MG/3 ML INH INHALATION ×2 (13:13→17:15)
--- NOTE | 2024-04-15 23:54 | PC.NURSE ---
Pt refused breathing tx at this time. She does not wish to be disturbed because she is finally comfortable. This RN educated the pt on the use of the medication and how it could benefit her. Pt still wished to skip this dose at this time. Call light w/in reach of pt.
[2024-04-16] VITALS (8 sets, daily range): BP systolic 136–152; BP diastolic 51–68; PULSE 54–93; RESP 16–20; TEMP 36.5–36.6; O2SAT 94–98
[2024-04-16 05:12] LABS: Hematocrit 29.7 % (35.0-42.0); Hemoglobin 9.5 g/dL (11.7-13.8); Mean Corpuscular Hemoglobin 29.4 pg (27.0-31.0); Mean Platelet Volume 9.6 fl (9.2-11.8); Platelet Count Result 168 K/mm3 (150-420); Red Blood Count 3.23 M/mm3 (4.20-5.40); Red Cell Distribution Width 16.5 % (11.6-14.4); White Blood Count 16.9 K/mm3 (4.8-10.8)
[2024-04-16 05:27] LABS: Anion Gap 6 mmol/L (4-12); Carbon Dioxide 31 mmol/L (21-32); Chloride 97 mmol/L (98-108); Potassium 4.2 mmol/L (3.5-5.1); Sodium 134 mmol/L (136-145)
[2024-04-16 05:28] LABS: Albumin Level 2.3 g/dL (3.4-5.0); Alkaline Phosphatase 79 U/L (46-116); Aspartate Amino Transferase 10 U/L (15-37); Bilirubin,Total 0.8 mg/dL (0.00-1.00); Blood Urea Nitrogen 19 mg/dL (7-18); Calcium 8.2 mg/dL (8.5-10.1); Estimated CRCL calculation 35 ml/min; Estimated Glomerular Filt Rate 59; Glucose 106 mg/dL (70-99); Osmolality Calculated 280 mOsm/kg (285-295)
[2024-04-16 05:29] LABS: Alanine Aminotransferase < 6 U/L (14-59)
[2024-04-16] MEDS: ALBUTEROL SULFATE NEB 1.25 MG/3 ML INH INHALATION ×3 (05:50→16:21)
[2024-04-16] MEDS: PANTOPRAZOLE 40 MG TABLET PO (08:28)
[2024-04-16] MEDS: DABIGATRAN ETEXILATE 75 MG CAPSULE PO ×2 (08:28→20:59)
[2024-04-16] MEDS: FUROSEMIDE INJ 40 MG/4 ML VIAL IV PUSH ×2 (08:29→16:44)
[2024-04-16] MEDS: MAGNESIUM OXIDE 400 MG TABLET PO (08:29)
[2024-04-16] MEDS: lisinopriL 2.5 MG TABLET PO (08:29)
[2024-04-16] MEDS: DIGOXIN TAB 125 MCG TABLET PO (08:29)
[2024-04-16] MEDS: POTASSIUM CHLORIDE 20 MEQ PACKET (FOR LIQUID) PO (08:31)
[2024-04-16] MEDS: AZITHROMYCIN 500 MG/NS 250 ML 500 MG/250 ML BAG 250 MG IVPB (11:14)
--- NOTE | 2024-04-16 12:02 | P.PNIM_ITS ---
Progress Note: A&P Assessment and Plan (1) Edema due to hypoalbuminemia: Code(s): E88.09 - Other disorders of plasma-protein metabolism, not elsewhere classified Status: Acute Assessment and Plan: 04/16/24: * albumin 2.3 today * will give additional albumin to assist with diuresis * patient has poor oral intake (2) Acute exacerbation of CHF (congestive heart failure): Qualifiers: Heart failure type: unspecified Qualified Code(s): I50.9 - Heart failure, unspecified Code(s): I50.9 - Heart failure, unspecified Status: Acute Assessment and Plan: 04/16/24: * likely secondary to pneumonia and pleural effusion verses fluid overload * increase IV Lasix to b.i.d. * will continue with albumin as well * Riley catheter in place * strict I&O * echo ordered * patient still has 2 to 3+ pitting edema to bilateral lower extremities * chest x-ray today shows moderate left and small right pleural effusion with pneumonia, appears unchanged from previous (3) Acute UTI: Code(s): N39.0 - Urinary tract infection, site not specified Status: Acute Assessment and Plan: 04/16/24: * UA shown trace urine blood, positive nitrate, trace leukocyte, 4-6 urine WBC, 4+ urine bacteria * urine culture showing an ESBL * Rocephin changed over to meropenem today * when mental status improves, we will switch to oral medication (4) Hypokalemia: Code(s): E87.6 - Hypokalemia Status: Acute Assessment and Plan: 04/16/24: * potassium today 4.2 * no replacement required * continue to monitor (5) Community acquired pneumonia: Code(s): J18.9 - Pneumonia, unspecified organism Status: Acute Assessment and Plan: 04/16/24: * white blood cell count 16.9 which is increased from yesterday * chest x-ray showing pneumonia * patient now on meropenem and we added azithromycin for CAP coverage * will check urine strep, urine Legionella, mycoplasma (6) AMS (altered mental status): Qualifiers: Altered mental status type: transient alteration of awareness Qualified Code(s): R40.4 - Transient alteration of awareness Code(s): R41.82 - Altered mental status, unspecified Status: Acute Assessment and Plan: 04/16/24: * alert to voice and oriented x1 * patient very confused today likely secondary to receiving Neurontin. According to the POA Neurontin has caused her confusion and that medication was discontinued. However it somehow got restarted this admission. Neurontin was discontinued again. * Continue neuro checks * continue fall precautions (7) Hyponatremia: Code(s): E87.1 - Hypo-osmolality and hyponatremia Status: Acute Assessment and Plan: 04/16/24: * sodium level 134 * continue to trend (8) Protein calorie malnutrition: Code(s): E46 - Unspecified protein-calorie malnutrition Status: Acute Assessment and Plan: 04/16/24: * decreased appetite for at least 2 weeks * albumin level 2.4 was originally 1.7 * will need help with meals while she continues with altered mental status Time Spent With Patient Time with patient: Greater than 35 minutes Subjective Date/time seen: 04/16/24 12:02 Interval history: Interval summary: This is an 88-year-old female who presented to the hospital on 04/14/2024 with confusion and weakness. Workup in the hospital included a head CT which was negative. A chest x-ray which shown segmen
--- NOTE | 2024-04-16 12:02 | PM.IMPN ---
Progress Note: A&P Assessment and Plan (1) Edema due to hypoalbuminemia: Code(s): E88.09 - Other disorders of plasma-protein metabolism, not elsewhere classified Status: Acute Assessment and Plan: 04/16/24: albumin 2.3 today will give additional albumin to assist with diuresis patient has poor oral intake (2) Acute exacerbation of CHF (congestive heart failure): Qualifiers: Heart failure type: unspecified Qualified Code(s): I50.9 - Heart failure, unspecified Code(s): I50.9 - Heart failure, unspecified Status: Acute Assessment and Plan: 04/16/24: likely secondary to pneumonia and pleural effusion verses fluid overload increase IV Lasix to b.i.d. will continue with albumin as well Riley catheter in place strict I&O echo ordered patient still has 2 to 3+ pitting edema to bilateral lower extremities chest x-ray today shows moderate left and small right pleural effusion with pneumonia, appears unchanged from previous (3) Acute UTI: Code(s): N39.0 - Urinary tract infection, site not specified Status: Acute Assessment and Plan: 04/16/24: UA shown trace urine blood, positive nitrate, trace leukocyte, 4-6 urine WBC, 4+ urine bacteria urine culture showing an ESBL Rocephin changed over to meropenem today when mental status improves, we will switch to oral medication (4) Hypokalemia: Code(s): E87.6 - Hypokalemia Status: Acute Assessment and Plan: 04/16/24: potassium today 4.2 no replacement required continue to monitor (5) Community acquired pneumonia: Code(s): J18.9 - Pneumonia, unspecified organism Status: Acute Assessment and Plan: 04/16/24: white blood cell count 16.9 which is increased from yesterday chest x-ray showing pneumonia patient now on meropenem and we added azithromycin for CAP coverage will check urine strep, urine Legionella, mycoplasma (6) AMS (altered mental status): Qualifiers: Altered mental status type: transient alteration of awareness Qualified Code(s): R40.4 - Transient alteration of awareness Code(s): R41.82 - Altered mental status, unspecified Status: Acute Assessment and Plan: 04/16/24: alert to voice and oriented x1 patient very confused today likely secondary to receiving Neurontin. According to the POA Neurontin has caused her confusion and that medication was discontinued. However it somehow got restarted this admission. Neurontin was discontinued again. Continue neuro checks continue fall precautions (7) Hyponatremia: Code(s): E87.1 - Hypo-osmolality and hyponatremia Status: Acute Assessment and Plan: 04/16/24: sodium level 134 continue to trend (8) Protein calorie malnutrition: Code(s): E46 - Unspecified protein-calorie malnutrition Status: Acute Assessment and Plan: 04/16/24: decreased appetite for at least 2 weeks albumin level 2.4 was originally 1.7 will need help with meals while she continues with altered mental status Time Spent With Patient Time with patient: Greater than 35 minutes Subjective Date/time seen: 04/16/24 12:02 Interval history: Interval summary: This is an 88-year-old female who presented to the hospital on 04/14/2024 with confusion and weakness. Workup in the hospital included a head CT which was negative. A chest x-ray which shown segmental left basilar atelectasis / consolidation, moderate left and small right pleural effusion, mild interstitial edema. I will repeated the chest x-ray today which showed bilateral perihilar and lower lobe pneumonia, bilateral pleural effusion more on the right side. Initial labs revealed a white blood cell count of 17.6, hemoglobin 11.3, sodium 133, potassium 2.7, chloride 96, creatinine 1.03, EGFR 50, alk-phos 128, proBNP 9765, albumin 1.8. A UA was obtained which showed tr
[2024-04-16] MEDS: ALBUMIN HUMAN 25% 25 GM/100 ML 100 ML IVPB (12:07)
[2024-04-16] MEDS: MEROPENEM 1 GM/NS 100 ML 1 GM/100 ML BAG IVPB (13:40)
--- NOTE | 2024-04-16 15:55 | ECHO_ITS ---
Patient Info Name: Doreen Baezcell Age: 88 years : 1935 Gender: Female Ht: 66 in Wt: 167 lbs BSA: 1.89 m2 HR: 67 bpm BP: 100 / 69 mmHg Technical Quality: Good Exam Date: 04/16/2024 3:14 PM Exam Location: [facility] Patient Status: Inpatient Admit Date: 04/14/2024 Staff Ordering Physician: Merry Peterson NP Photography Manager: Arie Nguyen RDCS Attending Provider: Debra Griffin APRN Referring Physician: Nicholas MUNGUIA; Exam Type: CA echo doppler color flow Study Info Indications - EF results Complete two-dimensional, color flow and Doppler transthoracic echocardiogram is performed. Summary 1. Complete two-dimensional, color flow and Doppler transthoracic echocardiogram is performed. 2. Left ventricular chamber dimension is normal. 3. Left ventricular systolic function is normal, estimated at 60-65%. 4. The left ventricular diastolic function is abnormal. 5. E/e' 12 is mildly elevated. 6. Left atrial chamber dimension is severely enlarged. 7. Right atrial chamber dimension is moderately enlarged. 8. There is mild aortic valve sclerosis. 9. There is moderate aortic valve regurgitation. 10. The mitral valve has mildly calcified annulus. 11. There is moderate mitral valve regurgitation. 12. There is moderate to severe tricuspid valve regurgitation. 13. Severe pulmonary hypertension, estimated pulmonary arterial systolic pressure is 64 mmHg. 14. There is trace pulmonic regurgitation. 15. Dilated inferior vena cava with >50% collapse upon inspiration consistent with normal right atrial pressure, 10 mmHg. Left Ventricle E/e' 12 is mildly elevated. Left ventricular chamber dimension is normal. Left ventricular systolic function is normal, estimated at 60-65%. The left ventricular diastolic function is abnormal. Right Ventricle Right ventricular systolic function is normal and with normal TAPSE 2.0 cm. Right ventricular chamber dimension is normal. Left Atria Left atrial chamber dimension is severely enlarged. Right Atria Right atrial chamber dimension is moderately enlarged. Aortic Valve The aortic valve is trileaflet. There is mild aortic valve sclerosis. There is no aortic valve stenosis. There is moderate aortic valve regurgitation. Pulmonic Valve There is trace pulmonic regurgitation. Mitral Valve The mitral valve has mildly calcified annulus. There is no mitral valve stenosis. There is moderate mitral valve regurgitation. Tricuspid Valve There is moderate to severe tricuspid valve regurgitation. Severe pulmonary hypertension, estimated pulmonary arterial systolic pressure is 64 mmHg. Pericardium/Pleural There is no pericardial effusion. Inferior Vena Cava Dilated inferior vena cava with >50% collapse upon inspiration consistent with normal right atrial pressure, 10 mmHg. Aorta The aortic root size at the sinus of Valsalva is normal. Left Ventricular Outflow Tract Name Value Normal LVOT 2D LVOT Diameter 2.1 cm LVOT Doppler LVOT Peak Velocity 101 cm/s LVOT Peak Gradient 4 mmHg LVOT Mean Gradient 2 mmHg LVOT VTI 19 cm LVOT VTI/AV V
[2024-04-17] VITALS (8 sets, daily range): BP systolic 136–159; BP diastolic 45–84; PULSE 65–92; RESP 14–18; TEMP 36.6–36.8; O2SAT 90–98
[2024-04-17] MEDS: MEROPENEM 1 GM/NS 100 ML 1 GM/100 ML BAG IVPB ×2 (01:03→13:10)
[2024-04-17] MEDS: ALBUTEROL SULFATE NEB 1.25 MG/3 ML INH INHALATION ×3 (01:03→18:46)
[2024-04-17 05:11] LABS: Hematocrit 30.1 % (35.0-42.0); Hemoglobin 9.8 g/dL (11.7-13.8); Mean Corpuscular HGB Conc 32.6 g/dL (32-36); Mean Corpuscular Hemoglobin 29.4 pg (27.0-31.0); Mean Corpuscular Volume 90.4 fL (78.0-102.0); Mean Platelet Volume 9.5 fl (9.2-11.8); Platelet Count Result 188 K/mm3 (150-420); Red Blood Count 3.33 M/mm3 (4.20-5.40); Red Cell Distribution Width 16.5 % (11.6-14.4); White Blood Count 19.9 K/mm3 (4.8-10.8)
[2024-04-17 05:24] LABS: Albumin Level 2.3 g/dL (3.4-5.0); Alkaline Phosphatase 84 U/L (46-116); Anion Gap 6 mmol/L (4-12); Aspartate Amino Transferase < 10 U/L (15-37); Bilirubin,Total 0.9 mg/dL (0.00-1.00); Blood Urea Nitrogen 13 mg/dL (7-18); Calcium 8.2 mg/dL (8.5-10.1); Carbon Dioxide 32 mmol/L (21-32); Chloride 99 mmol/L (98-108); Estimated CRCL calculation 38 ml/min; Estimated Glomerular Filt Rate > 60; Glucose 105 mg/dL (70-99); Magnesium 1.9 mg/dL (1.8-2.4); Osmolality Calculated 284 mOsm/kg (285-295); Potassium 3.7 mmol/L (3.5-5.1); Sodium 137 mmol/L (136-145)
[2024-04-17 05:28] LABS: Alanine Aminotransferase < 6 U/L (14-59)
--- NOTE | 2024-04-17 07:42 | P.PNIM_ITS ---
Progress Note: A&P Assessment and Plan (1) Acute exacerbation of CHF (congestive heart failure): Qualifiers: Heart failure type: unspecified Qualified Code(s): I50.9 - Heart failure, unspecified Code(s): I50.9 - Heart failure, unspecified Status: Acute Assessment and Plan: 04/16/24: * likely secondary to pneumonia and pleural effusion verses fluid overload * increase IV Lasix to b.i.d. * will continue with albumin as well * Valenzuela catheter in place * strict I&O * echo ordered * patient still has 2 to 3+ pitting edema to bilateral lower extremities * chest x-ray today shows moderate left and small right pleural effusion with pneumonia, appears unchanged from previous 04/17/24: * Echo results show a normal will LV systolic function with an estimated EF of 60-65% diastolic function is abnormal, moderate aortic valve regurgitation, moderate mitral valve regurgitation, moderate to severe tricuspid valve regurgitation, severe pulmonary hypertension with an estimated pulmonary artery systolic pressure 64 mmHg. * Continue diuresis * Strict I and O * Continue valenzuela catheter (2) Community acquired pneumonia: Code(s): J18.9 - Pneumonia, unspecified organism Status: Acute Assessment and Plan: 04/16/24: * white blood cell count 16.9 which is increased from yesterday * chest x-ray showing pneumonia * patient now on meropenem and we added azithromycin for CAP coverage * will check urine strep, urine Legionella, mycoplasma 04/17/24: * WBC 19.9 today * Blood cultures showing no growth on preliminary read * Will also check MRSA, if positive we may start vancomycin as well considering her white blood cell count is trending up I higher * Continue Meropenem and Azithromycin (3) Acute UTI: Code(s): N39.0 - Urinary tract infection, site not specified Status: Acute Assessment and Plan: 04/16/24: * UA shown trace urine blood, positive nitrate, trace leukocyte, 4-6 urine WBC, 4+ urine bacteria * urine culture showing an ESBL * Rocephin changed over to meropenem today * when mental status improves, we will switch to oral medication 04/17/24: * Continue with current treatment plan (4) AMS (altered mental status): Qualifiers: Altered mental status type: transient alteration of awareness Qualified Code(s): R40.4 - Transient alteration of awareness Code(s): R41.82 - Altered mental status, unspecified Status: Acute Assessment and Plan: 04/16/24: * alert to voice and oriented x1 * patient very confused today likely secondary to receiving Neurontin. According to the POA Neurontin has caused her confusion and that medication was discontinued. However it somehow got restarted this admission. Neurontin was discontinued again. * Continue neuro checks * continue fall precautions 04/17/24: * Alert to voice and oriented x2, still confused to place and time. She was able to tell me her date of and that it was 2023 * continue neuro checks * continue fall (5) Edema due to hypoalbuminemia: Code(s): E88.09 - Other disorders of plasma-protein metabolism, not elsewhere classified Status: Acute Assessment and Plan: 04/16/24: * albumin 2.3 today * will give additional albumin to assist with diuresis * patient has poor oral intake 04/17/24: * Albumin 2.3 * Continue to monitor (6) Hypokalemia: Code(s): E87.6 - Hypokalemia Status: Acute Assessment and Plan:
--- NOTE | 2024-04-17 07:42 | PM.IMPN ---
Progress Note: A&P Assessment and Plan (1) Acute exacerbation of CHF (congestive heart failure): Qualifiers: Heart failure type: unspecified Qualified Code(s): I50.9 - Heart failure, unspecified Code(s): I50.9 - Heart failure, unspecified Status: Acute Assessment and Plan: 04/16/24: likely secondary to pneumonia and pleural effusion verses fluid overload increase IV Lasix to b.i.d. will continue with albumin as well Valenzuela catheter in place strict I&O echo ordered patient still has 2 to 3+ pitting edema to bilateral lower extremities chest x-ray today shows moderate left and small right pleural effusion with pneumonia, appears unchanged from previous 04/17/24: Echo results show a normal will LV systolic function with an estimated EF of 60-65% diastolic function is abnormal, moderate aortic valve regurgitation, moderate mitral valve regurgitation, moderate to severe tricuspid valve regurgitation, severe pulmonary hypertension with an estimated pulmonary artery systolic pressure 64 mmHg. Continue diuresis Strict I and O Continue valenzuela catheter (2) Community acquired pneumonia: Code(s): J18.9 - Pneumonia, unspecified organism Status: Acute Assessment and Plan: 04/16/24: white blood cell count 16.9 which is increased from yesterday chest x-ray showing pneumonia patient now on meropenem and we added azithromycin for CAP coverage will check urine strep, urine Legionella, mycoplasma 04/17/24: WBC 19.9 today Blood cultures showing no growth on preliminary read Will also check MRSA, if positive we may start vancomycin as well considering her white blood cell count is trending up I higher Continue Meropenem and Azithromycin (3) Acute UTI: Code(s): N39.0 - Urinary tract infection, site not specified Status: Acute Assessment and Plan: 04/16/24: UA shown trace urine blood, positive nitrate, trace leukocyte, 4-6 urine WBC, 4+ urine bacteria urine culture showing an ESBL Rocephin changed over to meropenem today when mental status improves, we will switch to oral medication 04/17/24: Continue with current treatment plan (4) AMS (altered mental status): Qualifiers: Altered mental status type: transient alteration of awareness Qualified Code(s): R40.4 - Transient alteration of awareness Code(s): R41.82 - Altered mental status, unspecified Status: Acute Assessment and Plan: 04/16/24: alert to voice and oriented x1 patient very confused today likely secondary to receiving Neurontin. According to the POA Neurontin has caused her confusion and that medication was discontinued. However it somehow got restarted this admission. Neurontin was discontinued again. Continue neuro checks continue fall precautions 04/17/24: Alert to voice and oriented x2, still confused to place and time. She was able to tell me her date of and that it was 2023 continue neuro checks continue fall (5) Edema due to hypoalbuminemia: Code(s): E88.09 - Other disorders of plasma-protein metabolism, not elsewhere classified Status: Acute Assessment and Plan: 04/16/24: albumin 2.3 today will give additional albumin to assist with diuresis patient has poor oral intake 04/17/24: Albumin 2.3 Continue to monitor (6) Hypokalemia: Code(s): E87.6 - Hypokalemia Status: Acute Assessment and Plan: 04/16/24: potassium today 4.2 no replacement required continue to monitor 04/17/24: potassium 3.7 no replacement required again today Continue to monitor (7) Hyponatremia: Code(s): E87.1 - Hypo-osmolality and hyponatremia Status: Acute Assessment and Plan: 04/16/24: sodium level 134 continue to trend 04/17/24: Sodium 137 today Continue to trend (8) Protein calorie malnutrition: Code(s): E46 - Unspecified prot
[2024-04-17] MEDS: lisinopriL 2.5 MG TABLET PO (09:52)
[2024-04-17] MEDS: FUROSEMIDE INJ 40 MG/4 ML VIAL IV PUSH ×3 (09:52→17:22)
[2024-04-17] MEDS: DABIGATRAN ETEXILATE 75 MG CAPSULE PO ×2 (09:52→20:39)
[2024-04-17] MEDS: PANTOPRAZOLE 40 MG TABLET PO (09:52)
[2024-04-17] MEDS: MAGNESIUM OXIDE 400 MG TABLET PO (09:52)
[2024-04-17] MEDS: DIGOXIN TAB 125 MCG TABLET PO (09:52)
[2024-04-17] MEDS: POTASSIUM CHLORIDE 20 MEQ PACKET (FOR LIQUID) PO (09:52)
[2024-04-17 10:22] LABS: Occult Blood Negative (Negative)
[2024-04-17] MEDS: AZITHROMYCIN 500 MG/NS 250 ML 500 MG/250 ML BAG 250 MG IVPB (11:23)
[2024-04-17 11:32] LABS: MRSA (PCR) DETECTED (NOT DETECTE)
[2024-04-18] VITALS (7 sets, daily range): BP systolic 135–142; BP diastolic 45–50; PULSE 70–90; RESP 16–19; TEMP 36.2–36.9; O2SAT 90–99
[2024-04-18] MEDS: ALBUTEROL SULFATE NEB 1.25 MG/3 ML INH INHALATION ×2 (01:04→05:45)
[2024-04-18] MEDS: MEROPENEM 1 GM/NS 100 ML 1 GM/100 ML BAG IVPB (01:06)
[2024-04-18 05:21] LABS: Hemoglobin 10.4 g/dL (11.7-13.8); Mean Corpuscular HGB Conc 32.5 g/dL (32-36); Mean Corpuscular Hemoglobin 29.4 pg (27.0-31.0); Mean Corpuscular Volume 90.4 fL (78.0-102.0); Mean Platelet Volume 9.7 fl (9.2-11.8); Platelet Count Result 206 K/mm3 (150-420); Red Blood Count 3.54 M/mm3 (4.20-5.40); Red Cell Distribution Width 16.8 % (11.6-14.4)
[2024-04-18 05:40] LABS: Albumin Level 2.2 g/dL (3.4-5.0); Alkaline Phosphatase 88 U/L (46-116); Anion Gap 5 mmol/L (4-12); Aspartate Amino Transferase 10 U/L (15-37); Blood Urea Nitrogen 12 mg/dL (7-18); Calcium 8.5 mg/dL (8.5-10.1); Carbon Dioxide 34 mmol/L (21-32); Chloride 99 mmol/L (98-108); Estimated CRCL calculation 43 ml/min; Estimated Glomerular Filt Rate > 60; Glucose 101 mg/dL (70-99); Magnesium 1.7 mg/dL (1.8-2.4); Osmolality Calculated 285 mOsm/kg (285-295); Potassium 3.5 mmol/L (3.5-5.1); Sodium 138 mmol/L (136-145); Total Protein 5.2 g/dL (6.4-8.2)
[2024-04-18 05:41] LABS: Alanine Aminotransferase < 6 U/L (14-59)
[2024-04-18 09:20] LABS: Base Excess ABG 12.3 mmol/L (0-2); HCO3 ABG 35.4 mmol/L (23-29); Oxygen Content ABG 14.2 %vol (16.0-22.0); Oxygen Saturation ABG 93.2 % (95-97); Oxyhemoglobin 92.7 % (94-100); PCO2 ABG 39.7 mmHg (35-45); Total Hemoglobin 10.9 g/dL (12.0-18.0); pH ABG 7.57 (7.35-7.45)
[2024-04-18 09:24] LABS: Device ROOM AIR; Modified Allen's Test Pass; Site Drawn LEFT RADIAL
[2024-04-18] MEDS: SACCHAROMYCES BOULARDII 250 MG CAPSULE PO (09:31)
[2024-04-18] MEDS: PANTOPRAZOLE 40 MG TABLET PO (09:31)
[2024-04-18] MEDS: DABIGATRAN ETEXILATE 75 MG CAPSULE PO (09:31)
[2024-04-18] MEDS: FUROSEMIDE INJ 40 MG/4 ML VIAL IV PUSH (09:31)
[2024-04-18] MEDS: POTASSIUM CHLORIDE 20 MEQ PACKET (FOR LIQUID) PO (09:31)
[2024-04-18] MEDS: MAGNESIUM OXIDE 400 MG TABLET PO (09:31)
[2024-04-18] MEDS: DIGOXIN TAB 125 MCG TABLET PO (09:32)
[2024-04-18] MEDS: lisinopriL 2.5 MG TABLET PO (09:32)
[2024-04-18] MEDS: VANCOMYCIN 2,000 MG/NS 500 ML BAG 250 MG IVPB (09:37)
[2024-04-18 09:51] LABS: Neutrophils Percent Manual 91 % (46-73); Total Cells Counted 100
[2024-04-18 09:52] LABS: Band Neutrophils Percent 0 % (0-6); Lymphocytes Percent Manual 4 % (18-44); Monocytes Percent Manual 4 % (3-9); Platelet Estimate Adequate (Adequate)
[2024-04-18 10:10] LABS: Influenza A QL RT-PCR Negative (Negative); Influenza B QL RT-PCR Negative (Negative); RSV RNA, RT-PCR Negative (Negative); SARS-CoV-2 RNA PCR Negative (Negative)
[2024-04-18 10:27] LABS: Ammonia < 10 umol/L (11-32)
--- NOTE | 2024-04-18 11:31 | PM.TDS ---
Transfer Discharge Sum: Prov Provider Date of admission: 04/14/24 10:05 Primary care physician: Mina Dillard MD Admitting clinician: Vickey Casanova MD Consults: 04/16/24 Consult to Dietitian Routine Reason for Consult:: for protein calorie mild nutrition Attending physician on discharge: Pablo Casanova Discharging clinician: Macy King Anticipated date of transfer: 04/18/24 Receiving physician/facility: Dr. Hinton at [facility] DS: Admitting Diagnosis Discharge Date 04/18/24 Admitting Diagnosis Acute exacerbation of CHF acute UTI hypokalemia altered mental status hypertension AFib edema due to hypoalbuminemia DS: Discharge Diagnosis Discharge Diagnosis (1) Acute exacerbation of CHF (congestive heart failure): Qualifiers: Heart failure type: unspecified Qualified Code(s): I50.9 - Heart failure, unspecified Code(s): I50.9 - Heart failure, unspecified Status: Acute (2) Community acquired pneumonia: Code(s): J18.9 - Pneumonia, unspecified organism Status: Acute (3) Acute UTI: Code(s): N39.0 - Urinary tract infection, site not specified Status: Acute (4) AMS (altered mental status): Qualifiers: Altered mental status type: transient alteration of awareness Qualified Code(s): R40.4 - Transient alteration of awareness Code(s): R41.82 - Altered mental status, unspecified Status: Acute (5) Edema due to hypoalbuminemia: Code(s): E88.09 - Other disorders of plasma-protein metabolism, not elsewhere classified Status: Acute (6) Hypokalemia: Code(s): E87.6 - Hypokalemia Status: Acute (7) Hyponatremia: Code(s): E87.1 - Hypo-osmolality and hyponatremia Status: Acute (8) Protein calorie malnutrition: Code(s): E46 - Unspecified protein-calorie malnutrition Status: Acute Transfer Discharge Sum: Med Medications Active and Home Medications: Home Medications carvedilol 25 mg tablet 12.5 mg PO Q12H 10/15/19 [History Confirmed 04/13/24] digoxin 125 mcg (0.125 mg) tablet 125 mcg PO DAILY 10/15/19 [History Confirmed 04/13/24] docusate sodium 100 mg capsule 100 mg PO DAILY 10/15/19 [History Confirmed 04/13/24] furosemide 40 mg tablet 40 mg PO QAM 10/15/19 [History Confirmed 04/13/24] lisinopril 2.5 mg tablet 2.5 mg PO DAILY 10/15/19 [History Confirmed 04/13/24] magnesium oxide 400 mg (241.3 mg magnesium) tablet (MagOx) 400 mg PO DAILY 10/15/19 [History Confirmed 04/13/24] dabigatran etexilate 150 mg capsule (Pradaxa) 150 mg PO BID 09/20/23 [History Confirmed 04/13/24] polysaccharide iron complex 150 mg iron capsule (iFerex 150) 150 mg PO DAILY 09/20/23 [History Confirmed 04/13/24] sodium di- and monophosphate-potassium phos monobasic 250 mg tablet (Phospho-Peg Neutral) 1 tablet PO TID 09/20/23 [History Confirmed 04/13/24] polyethylene glycol 3350 17 gram oral powder packet (Miralax) 17 g PO BID #30 ea 09/24/23 [Rx Confirmed 04/13/24] acetaminophen 325 mg tablet 650 mg PO Q6H PRN Mild Pain (1-3) Or Fever #0 tabs 10/03/23 [Rx Confirmed 04/13/24] aluminum-mag hydroxide-simethicone 200 mg-200 mg-20 mg/5 mL oral susp (Mag-Al Plus) 30 ml PO Q6H PRN Indigestion #0 mL 10/03/23 [Rx Confirmed 04/13/24] pantoprazole 40 mg tablet,delayed release 40 mg PO Q12HR #0 tabs 10/03/23 [Rx Confirmed 04/13/24] tramadol 50 mg tablet 50 mg PO Q6H PRN pain #20 tabs 10/03/23 [Rx Confirmed 04/13/24] sodium chloride 1,000 mg soluble tablet 1,000 mg PO BID #60 tabs 10/04/23 [Rx Confirmed 04/13/24] Active Medications Acetaminophen (Acetaminophen 325 Mg Tablet) 650 mg PO Q6H PRN PRN Reason: Mild Pain (1-3) Or Fever Last Admin: 04/15/24 09:39 Dose: 650 mg Albuterol (Albuterol Sulfate Neb 1.25 Mg/3 Ml Inh) 1.25 mg INHALATION Q6HRT PRN PRN Reason: Wheezing Dabigatran (Dabigatran Etexilate 75 Mg Capsule) 75 mg PO Q12HR ELVIN Last Admin: 04/18/24 09:31 Dose: 75 mg Digoxin (Digoxin Tab 125
--- NOTE | 2024-04-18 11:33 | PC.NURSE ---
Report called to [facility]. Spoke with Magda.
--- NOTE | 2024-04-18 13:00 | PC.NURSE ---
Report given to GBAAS at bedside. Pt transferred onto stretcher. Two saline locks and valenzuela present at transfer.
[2024-04-22 16:44] LABS: Pneumococcal Antigen Urine NOT DETECTED
[2024-04-24 01:33] LABS: Legionella pneumophila Ag Ur NOT DETECTED
== END 2024-04-18 12:20 | disposition short-term general hospital (02) | DRG 291 ==
LOC: CHSED 16:04 → CHS2ND 16:24
PROVIDERS: Nurse Practitioner Acute Care; Nurse Practitioner Family; Admitting Provider Internal Medicine; Emergency Provider Emergency Medicine; PCP Internal Medicine; Visit Provider Nurse Practitioner Family
DX: I11.0 Hypertensive heart disease with heart failure (principal); J18.9 Pneumonia, unspecified organism; N39.0 Urinary tract infection, site not specified; E44.0 Moderate protein-calorie malnutrition; E87.1 Hypo-osmolality and hyponatremia; I48.20 Chronic atrial fibrillation, unspecified; I50.9 Heart failure, unspecified; I27.20 Pulmonary hypertension, unspecified; I34.0 Nonrheumatic mitral (valve) insufficiency; I36.1 Nonrheumatic tricuspid (valve) insufficiency; E87.6 Hypokalemia; E88.09 Other disorders of plasma-protein metabolism, not elsewhere classified; Z68.27 Body mass index [BMI] 27.0-27.9, adult; Z11.52 Encounter for screening for COVID-19; Z74.01 Bed confinement status
CPT/HCPCS: 36415; 36600; 70450; 71045; 71250; 80048; 80053; 81001; 82140; 82272; 82805; 83605; 83735; 83880; 84484; 85025; 85027; 86738; 87040; 87077; 87086; 87088; 87186; 87449; 87637; 87641; 87899; 93005; 93306; 94640; 96365; 96367; 96375; 97162; 97165; 97530; 97535; 99285; A9270; G0378; J0456; J0696; J1940; J1956; J2185; J2405; J3370; J3475; J3480; P9047

== ENCOUNTER 2024-04-18 12:58 | Inpatient (IN) | payer MEDICARE, SELFPAY ==
[2024-04-18] VITALS (8 sets, daily range): BP systolic 129–147; BP diastolic 45–69; PULSE 60–97; RESP 12–18; TEMP 36.2–36.3; O2SAT 91–100; BMI 27.1
--- NOTE | ~2024-04-18 | XR_ITS ---
EXAMINATION: [id number] DATE: 04/23/2024 10:58 INDICATION: Pleural effusions post thoracentesis TECHNIQUE: frontal view of the chest was obtained. COMPARISON: Chest radiograph dated 04/23/2024 at 8:25 AM FINDINGS: Resolution of a prior left pleural effusion with significant improvement of aeration of the left lowe r lung zone. There are some mild residual opacities at the left lung base and costophrenic angle cons istent with residual atelectasis versus less likely pneumonia. Increasing opacities in the right mid to lower lung likely representing shifting position with more posterior layering of the small right p leural effusion with associated atelectasis and/or pneumonia due to the semiupright versus upright po sitioning on the current study. No pneumothorax. Cardiomegaly. Calcified right paratracheal lymph nod es consistent with old granulomatous disease. Right upper extremity peripherally inserted central ketty ous catheter (PICC) tip at the caudal superior vena cava. Vertical brii and pedicle screw fixation fo r lower lumbar posterior spinal fusion at L4-L5. IMPRESSION: 1. Resolution of the prior left pleural effusion with residual opacities at the left lower lung base and favor atelectasis over pneumonia. 2. Increasing opacity right mid and lower lung zone consistent with a small right pleural effusion wh ich may have either enlarged or more likely shifted in position with more posterior layering. 3. Opacities in the right lower lung zone which could represent associated atelectasis or pneumonia. 4. Cardiomegaly. Reviewed, dictated and finalized at location A. IMPRESSION: 1. Resolution of the prior left pleural effusion with residual opacities at the left lower lung base and favor atelectasis over pneumonia. 2. Increasing opacity right mid and lower lung zone consistent with a small rig ht pleural effusion which may have either enlarged or more likely shifted in po sition with more posterior layering. 3. Opacities in the right lower lung zone which could represent associated atel ectasis or pneumonia. 4. Cardiomegaly.
--- NOTE | ~2024-04-18 | XR_ITS ---
EXAMINATION: XR chest 1V portable DATE: 04/20/2024 05:45 INDICATION: Pleural effusion TECHNIQUE: frontal view of the chest was obtained. COMPARISON: Chest radiograph dated 04/19/2024 FINDINGS: Right upper extremity peripherally inserted central venous catheter (PICC) tip at the superior cavoa trial junction. Persistent opacities in the bilateral mid and lower lung zones consistent with modera te-sized left and small to moderate right pleural effusions with associated atelectasis and/or pneumo bob. No pneumothorax. Cardiomegaly. Calcite mediastinal lymph nodes consistent with old granulomatous disease. IMPRESSION: 1. Unchanged moderate left and [id number] right pleural effusions with associated atelectasis and/or pneumonia. Reviewed, dictated and finalized at location A. IMPRESSION: 1. Unchanged moderate left and [id number] right pleural effusions with a ssociated atelectasis and/or pneumonia.
--- NOTE | ~2024-04-18 | XR_ITS ---
Portable chest x-ray Comparison: 04/20/2024 Clinical History: Pleural effusion Findings: Moderate left pleural effusion and minimal right pleural effusion are present. There is bi basilar atelectasis/pulmonary edema. Right-sided PICC line in place. Cardiomediastinal silhouette is stable. Bones and soft tissues are unremarkable. Impression: Moderate left pleural effusion and minimal right pleural effusion. Bibasilar pulmonary edema/atelectasis. Support line, as above. Reviewed, dictated and finalized at location M. Impression: Moderate left pleural effusion and minimal right pleural effusion. Bibasilar pulmonary edema/atelectasis. Support line, as above.
--- NOTE | ~2024-04-18 | XR_ITS ---
EXAMINATION: XR chest 1V portable DATE: 04/19/2024 09:00 INDICATION: PICC line placement TECHNIQUE: frontal view of the chest was obtained. COMPARISON: Chest radiograph dated 04/18/2024 FINDINGS: Right upper extremity peripherally inserted central venous catheter (PICC) within the initially at th e right atrium and subsequently withdrawn to the level of the superior cavoatrial junction. Subsequen t image. Gradient of basilar predominant diffuse airspace opacities throughout the left lung and in the right mid and lower lung zones consistent with moderate-sized left and small to moderate right posterior la yering pleural effusions with associated atelectasis and/or pneumonia. No evident pulmonary edema in the aerated lungs. No pneumothorax. Cardiomegaly. Calcified right paratracheal lymph nodes consistent with old granulomatous disease. Partially visualized instrumentation for a lumbar spinal fusion is s een at the caudal margin of the field of imaging. IMPRESSION: 1. Right PICC line tip at the superior cavoatrial junction. 2. And moderate left and [id number] right pleural effusions with associated atelectasis and/or pneumonia. Reviewed, dictated and finalized at location A. IMPRESSION: 1. Right PICC line tip at the superior cavoatrial junction. 2. And moderate left and [id number] right pleural effusions with associa celena atelectasis and/or pneumonia.
--- NOTE | ~2024-04-18 | US_ITS ---
EXAMINATION: US thoracentesis DATE: 04/23/2024 11:27 INDICATION: Left pleural effusion TECHNIQUE: The procedure and its risks and benefits were discussed with the patient. Potential risks discussed included bleeding, infection, and pneumothorax. The patient understood the risks and agreed to proceed. The skin was prepped and draped in sterile fashion. 1% lidocaine was used for local anes thesia. Under ultrasound guidance, a 5 Fr catheter with trochar was advanced into the left pleural ef fusion. Fluid was aspirated. The catheter was removed, and a dressing was applied. There were no imme diate complications. FINDINGS: Ultrasound images demonstrate a moderate-sized left pleural effusion and the catheter within the flui d. IMPRESSION: 1. Successful ultrasound-guided thoracentesis yielding 1100 mL of reddish fluid. Reviewed, dictated and finalized at location A. IMPRESSION: 1. Successful ultrasound-guided thoracentesis yielding 1100 mL of reddish flui d.
--- NOTE | ~2024-04-18 | MR_ITS ---
EXAMINATION: MR brain/brain stem wo con DATE: 04/19/2024 12:33 INDICATION: Altered mental status TECHNIQUE: Magnetic resonance imaging (MRI) of the brain and brainstem was performed without intraven ous contrast. Sequences included sagittal and axial T1-weighted SE, axial diffusion-weighted FS SE, a xial T2*-weighted GRE, axial T2-weighted FLAIR, and axial T2-weighted FSE. Apparent diffusion coeffic ient (ADC) maps were created. COMPARISON: Head CT dated 04/13/2024 FINDINGS: There are no areas of restricted diffusion to suggest acute infarction. No intracranial hemorrhage or abnormal intracranial mass lesion. There are scattered areas of nonspecific increased T2-weighted si gnal intensity in the cerebral white matter, predominantly involving the deep, periventricular and po ntine white matter which is within normal limits for age and likely sequela of chronic small vessel i schemic disease. There are no intraparenchymal signal abnormalities seen on the other pulse sequences . Symmetric prominence of the sulci and ventricles consistent with moderate age-appropriate diffuse c erebral volume loss. There are no abnormal extra-axial fluid collections. Flow voids are seen in the cerebral arteries on the T2-weighted sequences consistent with their expected patency. Changes of patti ateral intraocular lens replacement. Visualized orbits and soft tissues are unremarkable. IMPRESSION: 1. No acute intracranial process. 2. Age-related changes including moderate diffuse on loss and mild scattered calcific white matter T2 hyperintensity which is within normal limits for age and likely sequela of chronic small vessel isch emic disease. Reviewed, dictated and finalized at location A. IMPRESSION: 1. No acute intracranial process. 2. Age-related changes including moderate diffuse on loss and mild scattered ca lcific white matter T2 hyperintensity which is within normal limits for age and likely sequela of chronic small vessel ischemic disease.
--- NOTE | 2024-04-18 13:37 | PM.IMHP ---
H&P: HPI History of Present Illness Date/Time: 04/18/24 13:37 Chief Complaint: Community-acquired pneumonia bilateral pleural effusion Altered mental status Acute urinary tract infection Acute CHF exacerbation Edema due to hypo albuminemia Protein calorie malnutrition Narrative: This is an 88-year-old female with a significant past medical history of AFib, CHF, heart disease, hypertension who was a direct admit from [facility] for bilateral pleural effusion, community-acquired pneumonia, altered mental status, and acute urinary tract infection. Patient originally presented to [facility] on 04/14/2024 with confusion and weakness. Workup at [facility] revealed a urinary tract infection with ESBL and being treated for community-acquired pneumonia per chest x-ray. Patient was started on meropenem and azithromycin. White blood cell count was increasing over the course of her stay at [place]. White blood cell count went from 17.6 up to 20.0 today. MRSA was positive and we added vancomycin today. Chest x-ray obtained today showed worsening bilateral pleural effusions. We went ahead and got a chest CT shown large bilateral pleural effusions with complete bilateral lower lobe atelectasis and numerous spinal compression fractures which appear to be old. Patient also has altered mental status and was thought to be due to the use of Neurontin for 5 doses however she is still confused today. We checked an ABG which showed respiratory alkalosis, ammonia level was less than 10, sodium level was normal at 138. She had a head CT at [facility] which was negative for any acute intracranial process. Blood cultures are showing no growth to date on preliminary read. She also had an echocardiogram done on 04/16/2024 which shown normal LV systolic function with an estimated EF of 60 is 65%, diastolic dysfunction, severe pulmonary hypertension with an estimated pulmonary arterial pressure of 64 mmHg. Discussed findings with the POA Maureen and the need for transfer. Maureen was agreeable to transfer to [facility] for potential bilateral thoracentesis with Interventional Radiology. Spoke with Dr. Hinton who accepted the patient to [facility]. Review of Systems Review of Systems: ROS unobtainable: Yes unobtainable due to mental status PMFSH Past Medical History Medical History Atrial fibrillation Congestive heart failure Heart disease Hypertension Surgical History Surgical History H/O: hysterectomy History of section History of hip replacement (~06/2019) Right bipolar History of lumbar surgery fusion with instrumentation Family History Family History Other Heart disease Hypertension Social History Social History Smoking packs per day: 0.25 Smoking cigarettes per day: 5.0 Years smoked: 2 Smoking pack-years: 0.50 Smoking status: Never smoker Tobacco type: cigarettes Second hand tobacco smoke exposure: No Alcohol intake: former Substance use: never Substance use type: does not use Do You Feel Safe in your Home?: Yes Lack of Transportation: No Lack of Food: Never True Current Housing: I Have Housing Concerned About Future Housing: No Difficulty Paying Gas/Electric Bills: No Difficulty Paying for Meds: No Currently Unemployed: No Education: High School Diploma/GED Difficulty w/ Childcare or Family Care: No Living arrangements: [facility] Occupation/Education: retired Spiritual care concerns: No Meds Home Medications and Allergies Home Medications Medication Instructions Recorded Confirmed Type carvedilol 25 mg tablet 12.5 mg PO Q12H 10/15/19 04/18/24 History digoxin 125 mcg (0.125 mg) tablet 125 mcg
--- NOTE | 2024-04-18 13:40 | ADMGEN ---
This patient, Doreen Hedrick, was admitted to [facility] Surg Room 303-01. Patient/family oriented to hospital policies and general routines including ID bracelet, bed and alarms, visiting hours, pain management, procedures, bathroom and other care routines, personal items, smoking policy, room service/diet, and visiting hours. Information on how to activate the Rapid Response Team has been discussed. Patient/Family are encouraged to report perceived risks to care and to ask questions if they do not understand what they are told or what they should do.
[2024-04-18] MEDS: IPRATROPIUM 0.5 MG/ALBUTEROL SULFATE 2.5 MG AMPUL.NEB 3 ML INHALATION ×2 (14:20→19:53)
[2024-04-18] MEDS: MEROPENEM 1 GM/NS 100 ML 1 GM/100 ML BAG IVPB (15:55)
[2024-04-18 16:29] LABS: INR 1.5; Prothrombin Time 18.3 Seconds (11.1-14.7)
[2024-04-18 16:30] LABS: Partial Thromboplastin Time 61.2 Seconds (22.3-36.8)
[2024-04-18 16:31] LABS: Albumin Level 2.9 g/dL (3.5-5.1); Amylase 66 U/L (30-110); Bilirubin,Total 1.1 mg/dL (0.2-1.3); Cholesterol 94 mg/dL (0-200); Glucose 92 mg/dL (65-110); Lactate Dehydrogenase 147 U/L (120-246); Triglycerides 94 mg/dL (<150)
[2024-04-18] MEDS: traMADol HCL (*CRX) 50 MG TABLET PO (16:45)
[2024-04-18] MEDS: AZITHROMYCIN 500 MG/NS 250 ML 500 MG/250 ML BAG 125 MG IVPB (16:46)
[2024-04-18] MEDS: SODIUM CHLORIDE 1 GM TABLET PO (17:36)
[2024-04-18] MEDS: POTASSIUM PHOS/SODIUM PHOS 250 MG TABLET PO (17:36)
[2024-04-18] MEDS: MAGNESIUM SULF 2 GM/WATER 50ML 2 GM/50 ML BAG IVPB (17:36)
[2024-04-18] MEDS: SACCHAROMYCES BOULARDII 250 MG CAPSULE PO (17:36)
[2024-04-18] MEDS: BUMETANIDE INJ 1 MG/4 ML VIAL IV PUSH (17:36)
[2024-04-18] MEDS: ALBUMIN HUMAN 25% 25 GM/100 ML 100 ML IVPB ×2 (18:52→23:35)
[2024-04-18] MEDS: PANTOPRAZOLE 40 MG TABLET PO (21:12)
[2024-04-18] MEDS: carvediloL 12.5 MG TABLET PO (21:12)
[2024-04-19] VITALS (20 sets, daily range): BP systolic 120–152; BP diastolic 38–65; PULSE 52–110; RESP 12–20; TEMP 36.3–36.9; O2SAT 90–100
[2024-04-19] MEDS: IPRATROPIUM 0.5 MG/ALBUTEROL SULFATE 2.5 MG AMPUL.NEB 3 ML INHALATION ×4 (01:42→20:15)
[2024-04-19] MEDS: MEROPENEM 1 GM/NS 100 ML 1 GM/100 ML BAG IVPB ×2 (02:33→14:30)
[2024-04-19] MEDS: ALBUMIN HUMAN 25% 25 GM/100 ML 100 ML IVPB (05:43)
[2024-04-19] MEDS: LIDOCAINE HCL 1% PF INJ 5 ML VIAL INFILTRATE (08:15)
[2024-04-19 08:48] LABS: Basophils Percent Auto 0.2 % (0.2-1.2); Eosinophils Absolute Auto 0.1 K/mm3 (0-0.3); Eosinophils Percent Auto 0.9 % (0-4.4); Hematocrit 26.3 % (37.0-47.0); Hemoglobin 8.1 g/dL (12.0-15.0); Immature Granulocyte Percent A 0.8 % (0-0.5); Lymphocytes Absolute Auto 0.81 K/mm3 (0.9-3.2); Lymphocytes Percent Auto 6.1 % (18.3-44.2); Mean Corpuscular HGB Conc 30.8 g/dl (32-36); Mean Corpuscular Hemoglobin 29.2 pg (26-34); Mean Corpuscular Volume 94.9 fl (80-100); Mean Platelet Volume 10.5 fl (7.4-10.4); Monocytes Absolute Auto 0.9 K/mm3 (0.1-0.6); Monocytes Percent Auto 6.4 % (2.6-8.5); Neutrophils Absolute Auto 11.4 K/mm3 (1.3-6.7); Neutrophils Percent Auto 85.6 % (45.5-73.1); Platelet Count Result 133 k/mm3 (150-375); Red Blood Count 2.77 M/mm3 (4.2-5.4); White Blood Count 13.3 K/mm3 (4.5-10.0)
[2024-04-19 09:37] LABS: Alanine Aminotransferase 6 U/L (6-35); Albumin Level 3.5 g/dL (3.5-5.1); Alkaline Phosphatase 62 U/L (38-126); Anion Gap 9 mmol/L (4-12); Aspartate Amino Transferase 11 U/L (14-36); Bilirubin,Total 1.1 mg/dL (0.2-1.3); Blood Urea Nitrogen 14 mg/dL (7-17); Calcium 8.8 mg/dL (8.4-10.2); Carbon Dioxide 34 mmol/L (22-30); Chloride 95 mmol/L (98-107); Estimated CRCL calculation 60 ml/min; Estimated Glomerular Filt Rate > 60; Glucose 72 mg/dL (65-110); Potassium 3.4 mmol/L (3.4-5.0); Sodium 138 mmol/L (137-145)
[2024-04-19] MEDS: polyethylene glycoL 3350 17 GM POWD.PACK PO (10:43)
[2024-04-19] MEDS: VANCOMYCIN 1,500 MG/NS 500 ML 1,500 MG/500 ML BAG 250 MG IVPB (10:43)
[2024-04-19] MEDS: ENOXAPARIN 40 MG/0.4 ML SYRINGE SUB-Q (10:43)
[2024-04-19] MEDS: DOCUSATE SODIUM 100 MG CAPSULE PO (10:44)
[2024-04-19] MEDS: MAGNESIUM OXIDE 400 MG TABLET PO (10:44)
[2024-04-19] MEDS: SACCHAROMYCES BOULARDII 250 MG CAPSULE PO ×3 (10:44→16:30)
[2024-04-19] MEDS: POLYSACCHARIDE IRON COMPLEX 150 MG CAPSULE PO (10:44)
[2024-04-19] MEDS: PANTOPRAZOLE 40 MG TABLET PO ×2 (10:44→20:42)
[2024-04-19] MEDS: SODIUM CHLORIDE 1 GM TABLET PO ×2 (10:44→16:31)
[2024-04-19] MEDS: POTASSIUM PHOS/SODIUM PHOS 250 MG TABLET PO ×3 (10:46→16:30)
--- NOTE | 2024-04-19 11:45 | PC.NURSE ---
Patient's ring removed in preparation for MRI procedure. Patient's sister will take the ring home with her. Pt verbalized understanding of this.
[2024-04-19] MEDS: BUMETANIDE INJ 1 MG/4 ML VIAL IV PUSH ×2 (12:58→16:31)
[2024-04-19] MEDS: lisinopriL 2.5 MG TABLET PO (12:59)
[2024-04-19] MEDS: CENTRAL LINE FLUSH 10 ML IV PUSH ×2 (12:59→20:42)
[2024-04-19] MEDS: AZITHROMYCIN 500 MG/NS 250 ML 500 MG/250 ML BAG 250 MG IVPB (14:31)
--- NOTE | 2024-04-19 15:40 | P.PNIM_ITS ---
Progress Note: A&P Assessment and Plan (1) Acute exacerbation of CHF (congestive heart failure): Qualifiers: Heart failure type: unspecified Qualified Code(s): I50.9 - Heart failure, unspecified Code(s): I50.9 - Heart failure, unspecified Status: Acute Assessment and Plan: 04/18/24: * Initial BNP was 9765 on 04/13/2024 * Echo was obtained and shown normal LV systolic function with an estimated EF of 60-65%, diastolic dysfunction, severe pulmonary hypertension * She was given Lasix IV 40 mg b.i.d. over the last few days without much change in her edema * She does have 3+ pitting edema to both lower extremities and bilateral large pleural effusions today * Lasix DC and we will start Bumex 1 mg b.i.d. starting tonight * Will also give albumin 04/19/24: * Continue Bumex BID (2) Community acquired pneumonia: Code(s): J18.9 - Pneumonia, unspecified organism Status: Acute Assessment and Plan: 04/18/24: * Chest x-ray on 04/16/2024 showed bilateral perihilar and lower lobe pneumonia with bilateral pleural effusion more on the right side * Patient was started on azithromycin and currently on meropenem for a UTI * Patient was MRSA positive and started on vancomycin today * White blood cell count today is 20.0 * PICC line ordered for multiple antibiotics and albumin 04/19/24: * WBC count down to 13.3 * Continue IV antibiotics, may transition to oral tomorrow (3) Acute UTI: Code(s): N39.0 - Urinary tract infection, site not specified Status: Acute Assessment and Plan: 04/18/24: * Initial UA on 04/13/2024 showed trace urine blood, positive nitrates, trace leukocytes, 4-6 urine WBC, 4+ bacteria. * Urine culture showed ESBL * Continue meropenem 04/19/24: * No change to current treatment plan (4) AMS (altered mental status): Qualifiers: Altered mental status type: transient alteration of awareness Qualified Code(s): R40.4 - Transient alteration of awareness Code(s): R41.82 - Altered mental status, unspecified Status: Acute Assessment and Plan: 04/18/24: * Likely secondary to receiving Neurontin for 5 doses versus acute UTI * Ammonia level less than 10, sodium 138, blood sugar ranging 92-101, ABG showing respiratory alkalosis without hypercapnia, head CT from 04/13/2024 did not show any acute intracranial process. * Will get brain MRI today 04/19/24: * More alert today and oriented x2. Was able to hold a conversation with me today. * Brain MRI was negative for any acute findings, shown age related changes * Continue to monitor neuro status (5) Pleural effusion: Code(s): J90 - Pleural effusion, not elsewhere classified Status: Acute Assessment and Plan: 04/18/24: * Ultrasound guided thoracentesis ordered * Will likely be done on Sunday04/21/2024 due to her Pradaxa * Pradaxa is currently on hold * Will start Lovenox in the meantime * Will check coags on Sunday04/19/24: * Continue to hold Pradaxa for thoracentesis * Continue Lovenox for now * Check coags on Sunday (6) Edema due to hypoalbuminemia: Code(s): E88.09 - Other disorders of plasma-protein metabolism, not elsewhere classified Status: Acute Assessment and Plan: 04/18/24: * Albumin ordered q.6h 04/19/24: * Discontinued as Albumin level is within range today on labs (7) Hypertension: Code(s): I10 - Essential (primary) hypertension Status: Chronic Assessment and Plan: 04/18/24: * Continue lisinopril
--- NOTE | 2024-04-19 15:40 | PM.IMPN ---
Progress Note: A&P Assessment and Plan (1) Acute exacerbation of CHF (congestive heart failure): Qualifiers: Heart failure type: unspecified Qualified Code(s): I50.9 - Heart failure, unspecified Code(s): I50.9 - Heart failure, unspecified Status: Acute Assessment and Plan: 04/18/24: Initial BNP was 9765 on 04/13/2024 Echo was obtained and shown normal LV systolic function with an estimated EF of 60-65%, diastolic dysfunction, severe pulmonary hypertension She was given Lasix IV 40 mg b.i.d. over the last few days without much change in her edema She does have 3+ pitting edema to both lower extremities and bilateral large pleural effusions today Lasix DC and we will start Bumex 1 mg b.i.d. starting tonight Will also give albumin 04/19/24: Continue Bumex BID (2) Community acquired pneumonia: Code(s): J18.9 - Pneumonia, unspecified organism Status: Acute Assessment and Plan: 04/18/24: Chest x-ray on 04/16/2024 showed bilateral perihilar and lower lobe pneumonia with bilateral pleural effusion more on the right side Patient was started on azithromycin and currently on meropenem for a UTI Patient was MRSA positive and started on vancomycin today White blood cell count today is 20.0 PICC line ordered for multiple antibiotics and albumin 04/19/24: WBC count down to 13.3 Continue IV antibiotics, may transition to oral tomorrow (3) Acute UTI: Code(s): N39.0 - Urinary tract infection, site not specified Status: Acute Assessment and Plan: 04/18/24: Initial UA on 04/13/2024 showed trace urine blood, positive nitrates, trace leukocytes, 4-6 urine WBC, 4+ bacteria. Urine culture showed ESBL Continue meropenem 04/19/24: No change to current treatment plan (4) AMS (altered mental status): Qualifiers: Altered mental status type: transient alteration of awareness Qualified Code(s): R40.4 - Transient alteration of awareness Code(s): R41.82 - Altered mental status, unspecified Status: Acute Assessment and Plan: 04/18/24: Likely secondary to receiving Neurontin for 5 doses versus acute UTI Ammonia level less than 10, sodium 138, blood sugar ranging 92-101, ABG showing respiratory alkalosis without hypercapnia, head CT from 04/13/2024 did not show any acute intracranial process. Will get brain MRI today 04/19/24: More alert today and oriented x2. Was able to hold a conversation with me today. Brain MRI was negative for any acute findings, shown age related changes Continue to monitor neuro status (5) Pleural effusion: Code(s): J90 - Pleural effusion, not elsewhere classified Status: Acute Assessment and Plan: 04/18/24: Ultrasound guided thoracentesis ordered Will likely be done on Sunday04/21/2024 due to her Pradaxa Pradaxa is currently on hold Will start Lovenox in the meantime Will check coags on Sunday04/19/24: Continue to hold Pradaxa for thoracentesis Continue Lovenox for now Check coags on Sunday (6) Edema due to hypoalbuminemia: Code(s): E88.09 - Other disorders of plasma-protein metabolism, not elsewhere classified Status: Acute Assessment and Plan: 04/18/24: Albumin ordered q.6h 04/19/24: Discontinued as Albumin level is within range today on labs (7) Hypertension: Code(s): I10 - Essential (primary) hypertension Status: Chronic Assessment and Plan: 04/18/24: Continue lisinopril 04/19/24: No change to current treatment plan (8) Atrial fibrillation: Code(s): I48.91 - Unspecified atrial fibrillation Status: Chronic Assessment and Plan: 04/18/24: Pradaxa on hold 04/19/24: No change to current treatment plan (9) Protein calorie malnutrition: Code(s): E46 - Unspecified protein-calorie malnutrition Status: Acute Assessment and Plan: 04/18/24: BMI 27.1, 76.1 kg Has been unable to eat due
[2024-04-19] MEDS: traMADol HCL (*CRX) 50 MG TABLET PO (18:34)
[2024-04-19] MEDS: carvediloL 12.5 MG TABLET PO (20:42)
[2024-04-20] VITALS (13 sets, daily range): BP systolic 129–145; BP diastolic 46–70; PULSE 51–91; RESP 12–20; TEMP 36.5–37.1; O2SAT 93–98
[2024-04-20] MEDS: MEROPENEM 1 GM/NS 100 ML 1 GM/100 ML BAG IVPB (03:40)
[2024-04-20 04:23] LABS: Basophils Percent Auto 0.2 % (0.2-1.2); Eosinophils Absolute Auto 0.1 K/mm3 (0-0.3); Eosinophils Percent Auto 1.1 % (0-4.4); Hematocrit 24.5 % (37.0-47.0); Hemoglobin 7.9 g/dL (12.0-15.0); Immature Granulocyte Absolute 0.11 K/mm3 (0.00-0.031); Immature Granulocyte Percent A 0.9 % (0-0.5); Lymphocytes Absolute Auto 0.88 K/mm3 (0.9-3.2); Lymphocytes Percent Auto 7.2 % (18.3-44.2); Mean Corpuscular HGB Conc 32.2 g/dl (32-36); Mean Corpuscular Hemoglobin 29.6 pg (26-34); Mean Corpuscular Volume 91.8 fl (80-100); Mean Platelet Volume 9.7 fl (7.4-10.4); Monocytes Absolute Auto 0.9 K/mm3 (0.1-0.6); Monocytes Percent Auto 7.5 % (2.6-8.5); Neutrophils Absolute Auto 10.2 K/mm3 (1.3-6.7); Neutrophils Percent Auto 83.1 % (45.5-73.1); Platelet Count Result 126 k/mm3 (150-375); Red Blood Count 2.67 M/mm3 (4.2-5.4); Red Cell Distribution Width 17.2 % (11.5-14.5); White Blood Count 12.3 K/mm3 (4.5-10.0)
[2024-04-20 04:37] LABS: INR 1.6
[2024-04-20 04:38] LABS: Partial Thromboplastin Time 51.9 Seconds (22.3-36.8)
[2024-04-20 04:44] LABS: Alanine Aminotransferase 7 U/L (6-35); Albumin Level 2.8 g/dL (3.5-5.1); Alkaline Phosphatase 61 U/L (38-126); Anion Gap 4 mmol/L (4-12); Aspartate Amino Transferase 12 U/L (14-36); Bilirubin,Total 0.9 mg/dL (0.2-1.3); Blood Urea Nitrogen 12 mg/dL (7-17); Calcium 8.3 mg/dL (8.4-10.2); Carbon Dioxide 37 mmol/L (22-30); Chloride 97 mmol/L (98-107); Estimated CRCL calculation 60 ml/min; Estimated Glomerular Filt Rate > 60; Glucose 88 mg/dL (65-110); Potassium 2.9 mmol/L (3.4-5.0); Sodium 138 mmol/L (137-145)
[2024-04-20 05:09] LABS: Vancomycin Trough 14.3 ug/mL (10.0-20.0)
[2024-04-20] MEDS: CENTRAL LINE FLUSH 10 ML IV PUSH ×3 (05:51→20:50)
[2024-04-20] MEDS: VANCOMYCIN 1,500 MG/NS 500 ML 1,500 MG/500 ML BAG 250 MG IVPB (05:51)
[2024-04-20] MEDS: IPRATROPIUM 0.5 MG/ALBUTEROL SULFATE 2.5 MG AMPUL.NEB 3 ML INHALATION ×2 (07:30→15:45)
--- NOTE | 2024-04-20 08:31 | P.PNIM_ITS ---
Progress Note: A&P Assessment and Plan (1) Acute exacerbation of CHF (congestive heart failure): Qualifiers: Heart failure type: unspecified Qualified Code(s): I50.9 - Heart failure, unspecified Code(s): I50.9 - Heart failure, unspecified Status: Acute Assessment and Plan: 04/18/24: * Initial BNP was 9765 on 04/13/2024 * Echo was obtained and shown normal LV systolic function with an estimated EF of 60-65%, diastolic dysfunction, severe pulmonary hypertension * She was given Lasix IV 40 mg b.i.d. over the last few days without much change in her edema * She does have 3+ pitting edema to both lower extremities and bilateral large pleural effusions today * Lasix DC and we will start Bumex 1 mg b.i.d. starting tonight * Will also give albumin 04/19/24: * Continue Bumex BID 04/20/24: * Continue Bumex and Albumin * Albumin level 2.8 today * CXR today showing marked improvement in her opacities, she still has moderate left pleural effusion and small right pleural effusion * Continue IS while awake for her atelectasis * Keep lower extremities wrapped. * Continue monitoring I and O * Plan for Thoracentesis hopefully tomorrow (2) Community acquired pneumonia: Code(s): J18.9 - Pneumonia, unspecified organism Status: Acute Assessment and Plan: 04/18/24: * Chest x-ray on 04/16/2024 showed bilateral perihilar and lower lobe pneumonia with bilateral pleural effusion more on the right side * Patient was started on azithromycin and currently on meropenem for a UTI * Patient was MRSA positive and started on vancomycin today * White blood cell count today is 20.0 * PICC line ordered for multiple antibiotics and albumin 04/19/24: * WBC count down to 13.3 * Continue IV antibiotics, may transition to oral tomorrow 04/21/24: * WBC continues to trend down, 12.3 today * Will continue Vancomycin today. Meropenem changed to Bactrim. Azithromycin discontinued today after next nose. * Will transition Vancomycin to oral antibiotics tomorrow. * She was placed on MRSA isolation (3) Acute UTI: Code(s): N39.0 - Urinary tract infection, site not specified Status: Acute Assessment and Plan: 04/18/24: * Initial UA on 04/13/2024 showed trace urine blood, positive nitrates, trace leukocytes, 4-6 urine WBC, 4+ bacteria. * Urine culture showed ESBL * Continue meropenem 04/19/24: * No change to current treatment plan 04/20/24: * Meropenem changed to Bactrim (4) AMS (altered mental status): Qualifiers: Altered mental status type: transient alteration of awareness Qualified Code(s): R40.4 - Transient alteration of awareness Code(s): R41.82 - Altered mental status, unspecified Status: Acute Assessment and Plan: 04/18/24: * Likely secondary to receiving Neurontin for 5 doses versus acute UTI * Ammonia level less than 10, sodium 138, blood sugar ranging 92-101, ABG showing respiratory alkalosis without hypercapnia, head CT from 04/13/2024 did not show any acute intracranial process. * Will get brain MRI today 04/19/24: * More alert today and oriented x2. Was able to hold a conversation with me today. * Brain MRI was negative for any acute findings, shown age related changes * Continue to monitor neuro status 04/20/24: * (5) Pleural effusion: Code(s): J90 - Pleural effusion, not elsewhere classified Status: Acute Assessment and Plan: 04/18/24: * Ultrasound guided thoracentesis ordered * Will likely be done on Sunday04/21/2024
--- NOTE | 2024-04-20 08:31 | PM.IMPN ---
Progress Note: A&P Assessment and Plan (1) Acute exacerbation of CHF (congestive heart failure): Qualifiers: Heart failure type: unspecified Qualified Code(s): I50.9 - Heart failure, unspecified Code(s): I50.9 - Heart failure, unspecified Status: Acute Assessment and Plan: 04/18/24: Initial BNP was 9765 on 04/13/2024 Echo was obtained and shown normal LV systolic function with an estimated EF of 60-65%, diastolic dysfunction, severe pulmonary hypertension She was given Lasix IV 40 mg b.i.d. over the last few days without much change in her edema She does have 3+ pitting edema to both lower extremities and bilateral large pleural effusions today Lasix DC and we will start Bumex 1 mg b.i.d. starting tonight Will also give albumin 04/19/24: Continue Bumex BID 04/20/24: Continue Bumex and Albumin Albumin level 2.8 today CXR today showing marked improvement in her opacities, she still has moderate left pleural effusion and small right pleural effusion Continue IS while awake for her atelectasis Keep lower extremities wrapped. Continue monitoring I and O Plan for Thoracentesis hopefully tomorrow (2) Community acquired pneumonia: Code(s): J18.9 - Pneumonia, unspecified organism Status: Acute Assessment and Plan: 04/18/24: Chest x-ray on 04/16/2024 showed bilateral perihilar and lower lobe pneumonia with bilateral pleural effusion more on the right side Patient was started on azithromycin and currently on meropenem for a UTI Patient was MRSA positive and started on vancomycin today White blood cell count today is 20.0 PICC line ordered for multiple antibiotics and albumin 04/19/24: WBC count down to 13.3 Continue IV antibiotics, may transition to oral tomorrow 04/21/24: WBC continues to trend down, 12.3 today Will continue Vancomycin today. Meropenem changed to Bactrim. Azithromycin discontinued today after next nose. Will transition Vancomycin to oral antibiotics tomorrow. She was placed on MRSA isolation (3) Acute UTI: Code(s): N39.0 - Urinary tract infection, site not specified Status: Acute Assessment and Plan: 04/18/24: Initial UA on 04/13/2024 showed trace urine blood, positive nitrates, trace leukocytes, 4-6 urine WBC, 4+ bacteria. Urine culture showed ESBL Continue meropenem 04/19/24: No change to current treatment plan 04/20/24: Meropenem changed to Bactrim (4) AMS (altered mental status): Qualifiers: Altered mental status type: transient alteration of awareness Qualified Code(s): R40.4 - Transient alteration of awareness Code(s): R41.82 - Altered mental status, unspecified Status: Acute Assessment and Plan: 04/18/24: Likely secondary to receiving Neurontin for 5 doses versus acute UTI Ammonia level less than 10, sodium 138, blood sugar ranging 92-101, ABG showing respiratory alkalosis without hypercapnia, head CT from 04/13/2024 did not show any acute intracranial process. Will get brain MRI today 04/19/24: More alert today and oriented x2. Was able to hold a conversation with me today. Brain MRI was negative for any acute findings, shown age related changes Continue to monitor neuro status 04/20/24: (5) Pleural effusion: Code(s): J90 - Pleural effusion, not elsewhere classified Status: Acute Assessment and Plan: 04/18/24: Ultrasound guided thoracentesis ordered Will likely be done on Sunday04/21/2024 due to her Pradaxa Pradaxa is currently on hold Will start Lovenox in the meantime Will check coags on Sunday04/19/24: Continue to hold Pradaxa for thoracentesis Continue Lovenox for now Check coags on Sunday04/20/24: Will hold Lovenox for potential thoracentesis tomorrow (6) Edema due to hypoalbuminemia: Code(s): E88.09 - Other disorders of plasma-protein metabolism, not elsewhere classified Status: Acute Assessment and Pl
[2024-04-20] MEDS: SODIUM CHLORIDE 1 GM TABLET PO ×2 (09:38→18:01)
[2024-04-20] MEDS: PANTOPRAZOLE 40 MG TABLET PO ×2 (09:38→20:49)
[2024-04-20] MEDS: SULFAMETHOXAZOLE/TRIMETHOPRIM 800/160 MG DS TABLET 1 TAB PO ×2 (09:38→20:49)
[2024-04-20] MEDS: carvediloL 12.5 MG TABLET PO ×2 (09:38→20:49)
[2024-04-20] MEDS: SACCHAROMYCES BOULARDII 250 MG CAPSULE PO ×3 (09:38→18:01)
[2024-04-20] MEDS: DIGOXIN TAB 125 MCG TABLET PO (09:38)
[2024-04-20] MEDS: MAGNESIUM OXIDE 400 MG TABLET PO (09:38)
[2024-04-20] MEDS: DOCUSATE SODIUM 100 MG CAPSULE PO (09:38)
[2024-04-20] MEDS: POLYSACCHARIDE IRON COMPLEX 150 MG CAPSULE PO (09:38)
[2024-04-20] MEDS: POTASSIUM CHLORIDE 20 MEQ ER TABLET 40 MEQ PO (09:38)
[2024-04-20] MEDS: POTASSIUM PHOS/SODIUM PHOS 250 MG TABLET PO ×3 (09:38→18:01)
[2024-04-20] MEDS: polyethylene glycoL 3350 17 GM POWD.PACK PO (09:39)
[2024-04-20] MEDS: lisinopriL 2.5 MG TABLET PO (09:39)
[2024-04-20] MEDS: BUMETANIDE INJ 1 MG/4 ML VIAL IV PUSH ×2 (09:41→18:32)
[2024-04-20] MEDS: ALBUMIN HUMAN 25% 25 GM/100 ML 200 ML IVPB (10:34)
[2024-04-20] MEDS: traMADol HCL (*CRX) 50 MG TABLET PO (20:49)
[2024-04-21] VITALS (15 sets, daily range): BP systolic 134–157; BP diastolic 53–65; PULSE 61–80; RESP 16–20; TEMP 36.9–37.5; O2SAT 92–93; BMI 27.1
[2024-04-21] MEDS: VANCOMYCIN 1,500 MG/NS 500 ML 1,500 MG/500 ML BAG 250 MG IVPB (00:04)
[2024-04-21] MEDS: CENTRAL LINE FLUSH 10 ML IV PUSH ×3 (05:12→20:51)
[2024-04-21 05:47] LABS: Basophils Percent Auto 0.2 % (0.2-1.2); Eosinophils Absolute Auto 0.1 K/mm3 (0-0.3); Eosinophils Percent Auto 0.7 % (0-4.4); Hematocrit 25.3 % (37.0-47.0); Hemoglobin 8.1 g/dL (12.0-15.0); Immature Granulocyte Absolute 0.11 K/mm3 (0.00-0.031); Immature Granulocyte Percent A 0.8 % (0-0.5); Lymphocytes Absolute Auto 1.08 K/mm3 (0.9-3.2); Lymphocytes Percent Auto 8.2 % (18.3-44.2); Mean Corpuscular Hemoglobin 29.7 pg (26-34); Mean Corpuscular Volume 92.7 fl (80-100); Mean Platelet Volume 10.1 fl (7.4-10.4); Monocytes Percent Auto 7.5 % (2.6-8.5); Neutrophils Absolute Auto 10.9 K/mm3 (1.3-6.7); Neutrophils Percent Auto 82.6 % (45.5-73.1); Platelet Count Result 147 k/mm3 (150-375); Red Blood Count 2.73 M/mm3 (4.2-5.4); Red Cell Distribution Width 17.4 % (11.5-14.5); White Blood Count 13.2 K/mm3 (4.5-10.0)
[2024-04-21 05:57] LABS: Alanine Aminotransferase 7 U/L (6-35); Albumin Level 3.2 g/dL (3.5-5.1); Alkaline Phosphatase 62 U/L (38-126); Anion Gap 7 mmol/L (4-12); Aspartate Amino Transferase 12 U/L (14-36); Bilirubin,Total 1.1 mg/dL (0.2-1.3); Blood Urea Nitrogen 12 mg/dL (7-17); Calcium 8.9 mg/dL (8.4-10.2); Carbon Dioxide 35 mmol/L (22-30); Chloride 97 mmol/L (98-107); Estimated CRCL calculation 51 ml/min; Estimated Glomerular Filt Rate > 60; Glucose 100 mg/dL (65-110); Potassium 3.3 mmol/L (3.4-5.0); Sodium 139 mmol/L (137-145)
[2024-04-21 06:00] LABS: INR 1.5; Prothrombin Time 18.7 Seconds (11.1-14.7)
[2024-04-21 06:01] LABS: Partial Thromboplastin Time 49.1 Seconds (22.3-36.8)
[2024-04-21] MEDS: IPRATROPIUM 0.5 MG/ALBUTEROL SULFATE 2.5 MG AMPUL.NEB 3 ML INHALATION ×3 (07:43→19:27)
--- NOTE | 2024-04-21 08:17 | P.PNIM_ITS ---
Progress Note: A&P Assessment and Plan (1) Acute exacerbation of CHF (congestive heart failure): Qualifiers: Heart failure type: unspecified Qualified Code(s): I50.9 - Heart failure, unspecified Code(s): I50.9 - Heart failure, unspecified Status: Acute Assessment and Plan: 04/18/24: * Initial BNP was 9765 on 04/13/2024 * Echo was obtained and shown normal LV systolic function with an estimated EF of 60-65%, diastolic dysfunction, severe pulmonary hypertension * She was given Lasix IV 40 mg b.i.d. over the last few days without much change in her edema * She does have 3+ pitting edema to both lower extremities and bilateral large pleural effusions today * Lasix DC and we will start Bumex 1 mg b.i.d. starting tonight * Will also give albumin 04/19/24: * Continue Bumex BID 04/20/24: * Continue Bumex and Albumin * Albumin level 2.8 today * CXR today showing marked improvement in her opacities, she still has moderate left pleural effusion and small right pleural effusion * Continue IS while awake for her atelectasis * Keep lower extremities wrapped. * Continue monitoring I and O * Plan for Thoracentesis hopefully tomorrow 04/21/24: * Continue Bumex and Albumin at 100 ml today * Albumin level 3.2 today * CXR showing marked improvement in her opacities, she still has moderate left pleural effusion and small right pleural effusion * Continue IS while awake for her atelectasis * Keep lower extremities wrapped. * Continue monitoring I and O * Plan for Thoracentesis Weds, fluid studies ordered (2) Community acquired pneumonia: Code(s): J18.9 - Pneumonia, unspecified organism Status: Acute Assessment and Plan: 04/18/24: * Chest x-ray on 04/16/2024 showed bilateral perihilar and lower lobe pneumonia with bilateral pleural effusion more on the right side * Patient was started on azithromycin and currently on meropenem for a UTI * Patient was MRSA positive and started on vancomycin today * White blood cell count today is 20.0 * PICC line ordered for multiple antibiotics and albumin 04/19/24: * WBC count down to 13.3 * Continue IV antibiotics, may transition to oral tomorrow 04/21/24: * WBC continues to trend down, 12.3 today * Will continue Vancomycin today. Meropenem changed to Bactrim. Azithromycin discontinued today after next nose. * Will transition Vancomycin to oral antibiotics tomorrow. * She was placed on MRSA isolation 04/21/24: * WBC 13.2 today * con't Bactrim. s/p azithromycin * transition Vancomycin to PO tomorrow if WBC stabiles * She was placed on MRSA isolation (3) Acute UTI: Code(s): N39.0 - Urinary tract infection, site not specified Status: Acute Assessment and Plan: 04/18/24: * Initial UA on 04/13/2024 showed trace urine blood, positive nitrates, trace leukocytes, 4-6 urine WBC, 4+ bacteria. * Urine culture showed ESBL * Continue meropenem 04/19/24: * No change to current treatment plan 04/20/24: * Meropenem changed to Bactrim 04/21/24: * con't Bactrim (4) AMS (altered mental status): Qualifiers: Altered mental status type: transient alteration of awareness Qualified Code(s): R40.4 - Transient alteration of awareness Code(s): R41.82 - Altered mental status, unspecified Status: Acute Assessment and Plan: 04/18/24: * Likely secondary to receiving Neurontin for 5 doses versus acute UTI * Ammonia level less than 10, sodium 138, blood sugar ranging 92-101, ABG showing respiratory alkalosis without hypercapn
--- NOTE | 2024-04-21 08:17 | PM.IMPN ---
Progress Note: A&P Assessment and Plan (1) Acute exacerbation of CHF (congestive heart failure): Qualifiers: Heart failure type: unspecified Qualified Code(s): I50.9 - Heart failure, unspecified Code(s): I50.9 - Heart failure, unspecified Status: Acute Assessment and Plan: 04/18/24: Initial BNP was 9765 on 04/13/2024 Echo was obtained and shown normal LV systolic function with an estimated EF of 60-65%, diastolic dysfunction, severe pulmonary hypertension She was given Lasix IV 40 mg b.i.d. over the last few days without much change in her edema She does have 3+ pitting edema to both lower extremities and bilateral large pleural effusions today Lasix DC and we will start Bumex 1 mg b.i.d. starting tonight Will also give albumin 04/19/24: Continue Bumex BID 04/20/24: Continue Bumex and Albumin Albumin level 2.8 today CXR today showing marked improvement in her opacities, she still has moderate left pleural effusion and small right pleural effusion Continue IS while awake for her atelectasis Keep lower extremities wrapped. Continue monitoring I and O Plan for Thoracentesis hopefully tomorrow 04/21/24: Continue Bumex and Albumin at 100 ml today Albumin level 3.2 today CXR showing marked improvement in her opacities, she still has moderate left pleural effusion and small right pleural effusion Continue IS while awake for her atelectasis Keep lower extremities wrapped. Continue monitoring I and O Plan for Thoracentesis Weds, fluid studies ordered (2) Community acquired pneumonia: Code(s): J18.9 - Pneumonia, unspecified organism Status: Acute Assessment and Plan: 04/18/24: Chest x-ray on 04/16/2024 showed bilateral perihilar and lower lobe pneumonia with bilateral pleural effusion more on the right side Patient was started on azithromycin and currently on meropenem for a UTI Patient was MRSA positive and started on vancomycin today White blood cell count today is 20.0 PICC line ordered for multiple antibiotics and albumin 04/19/24: WBC count down to 13.3 Continue IV antibiotics, may transition to oral tomorrow 04/21/24: WBC continues to trend down, 12.3 today Will continue Vancomycin today. Meropenem changed to Bactrim. Azithromycin discontinued today after next nose. Will transition Vancomycin to oral antibiotics tomorrow. She was placed on MRSA isolation 04/21/24: WBC 13.2 today con't Bactrim. s/p azithromycin transition Vancomycin to PO tomorrow if WBC stabiles She was placed on MRSA isolation (3) Acute UTI: Code(s): N39.0 - Urinary tract infection, site not specified Status: Acute Assessment and Plan: 04/18/24: Initial UA on 04/13/2024 showed trace urine blood, positive nitrates, trace leukocytes, 4-6 urine WBC, 4+ bacteria. Urine culture showed ESBL Continue meropenem 04/19/24: No change to current treatment plan 04/20/24: Meropenem changed to Bactrim 04/21/24: con't Bactrim (4) AMS (altered mental status): Qualifiers: Altered mental status type: transient alteration of awareness Qualified Code(s): R40.4 - Transient alteration of awareness Code(s): R41.82 - Altered mental status, unspecified Status: Acute Assessment and Plan: 04/18/24: Likely secondary to receiving Neurontin for 5 doses versus acute UTI Ammonia level less than 10, sodium 138, blood sugar ranging 92-101, ABG showing respiratory alkalosis without hypercapnia, head CT from 04/13/2024 did not show any acute intracranial process. Will get brain MRI today 04/19/24: More alert today and oriented x2. Was able to hold a conversation with me today. Brain MRI was negative for any acute findings, shown age related changes Continue to monitor neuro status 04/21/24: Brain MRI was negative for any acute findings, shown age related changes Continue to monitor neuro status (5) Pleural effusion: Code(s): J90
--- NOTE | 2024-04-21 08:24 | PCPTNOTE ---
Pt dependent at baseline. Spoke with current hospitalist. Therapy orders okay to be cancelled. RN aware.
[2024-04-21] MEDS: POTASSIUM CHLORIDE 20 MEQ ER TABLET 40 MEQ PO (09:21)
[2024-04-21] MEDS: carvediloL 12.5 MG TABLET PO ×2 (09:21→20:49)
[2024-04-21] MEDS: DIGOXIN TAB 125 MCG TABLET PO (09:21)
[2024-04-21] MEDS: SACCHAROMYCES BOULARDII 250 MG CAPSULE PO ×3 (09:21→18:13)
[2024-04-21] MEDS: PANTOPRAZOLE 40 MG TABLET PO ×2 (09:21→20:51)
[2024-04-21] MEDS: SULFAMETHOXAZOLE/TRIMETHOPRIM 800/160 MG DS TABLET 1 TAB PO ×2 (09:21→20:50)
[2024-04-21] MEDS: DOCUSATE SODIUM 100 MG CAPSULE PO (09:21)
[2024-04-21] MEDS: POLYSACCHARIDE IRON COMPLEX 150 MG CAPSULE PO (09:21)
[2024-04-21] MEDS: POTASSIUM PHOS/SODIUM PHOS 250 MG TABLET PO ×3 (09:21→18:13)
[2024-04-21] MEDS: lisinopriL 2.5 MG TABLET PO (09:21)
[2024-04-21] MEDS: MAGNESIUM OXIDE 400 MG TABLET PO (09:21)
[2024-04-21] MEDS: SODIUM CHLORIDE 1 GM TABLET PO ×2 (09:22→18:14)
[2024-04-21] MEDS: BUMETANIDE INJ 1 MG/4 ML VIAL IV PUSH ×2 (09:32→18:50)
[2024-04-21] MEDS: ALBUMIN HUMAN 25% 25 GM/100 ML 100 ML IVPB (12:46)
[2024-04-21] MEDS: traMADol HCL (*CRX) 50 MG TABLET PO (20:51)
--- NOTE | 2024-04-21 20:51 | PC.NURSE ---
Pt is not oriented. I repeatedly asked pt her (@[id number]) to which pt repeatedly stated [birth year]25 or I don't know. Pt was able to state her name but nothing else. Pt did not know where she was. Pt did not know even remotely what year/time of year/etc. it was. Pt's orientation has been like this since at least Sunday04/19/24.
[2024-04-21] MEDS: VANCOMYCIN 1,250 MG/NS 250 ML 1,250 MG/250 ML BAG 167 MG IVPB (23:26)
[2024-04-22] VITALS (20 sets, daily range): BP systolic 136–161; BP diastolic 56–84; PULSE 65–85; RESP 18–20; TEMP 36.6–37.4; O2SAT 91–96
[2024-04-22] MEDS: IPRATROPIUM 0.5 MG/ALBUTEROL SULFATE 2.5 MG AMPUL.NEB 3 ML INHALATION ×4 (01:00→20:40)
[2024-04-22] MEDS: CENTRAL LINE FLUSH 10 ML IV PUSH ×3 (05:08→20:38)
[2024-04-22 05:37] LABS: Basophils Percent Auto 0.2 % (0.2-1.2); Eosinophils Percent Auto 0.3 % (0-4.4); Hematocrit 25.3 % (37.0-47.0); Immature Granulocyte Absolute 0.12 K/mm3 (0.00-0.031); Immature Granulocyte Percent A 0.9 % (0-0.5); Lymphocytes Absolute Auto 1.18 K/mm3 (0.9-3.2); Lymphocytes Percent Auto 8.9 % (18.3-44.2); Mean Corpuscular HGB Conc 31.6 g/dl (32-36); Mean Corpuscular Hemoglobin 29.4 pg (26-34); Mean Platelet Volume 10.7 fl (7.4-10.4); Monocytes Absolute Auto 0.9 K/mm3 (0.1-0.6); Monocytes Percent Auto 6.8 % (2.6-8.5); Neutrophils Absolute Auto 11.1 K/mm3 (1.3-6.7); Neutrophils Percent Auto 82.9 % (45.5-73.1); Platelet Count Result 145 k/mm3 (150-375); Red Blood Count 2.72 M/mm3 (4.2-5.4); Red Cell Distribution Width 17.7 % (11.5-14.5); White Blood Count 13.3 K/mm3 (4.5-10.0)
[2024-04-22 05:47] LABS: Alanine Aminotransferase 7 U/L (6-35); Albumin Level 3.4 g/dL (3.5-5.1); Alkaline Phosphatase 57 U/L (38-126); Anion Gap 6 mmol/L (4-12); Aspartate Amino Transferase 14 U/L (14-36); Bilirubin,Total 1.2 mg/dL (0.2-1.3); Blood Urea Nitrogen 14 mg/dL (7-17); Calcium 8.9 mg/dL (8.4-10.2); Carbon Dioxide 36 mmol/L (22-30); Chloride 98 mmol/L (98-107); Estimated CRCL calculation 51 ml/min; Estimated Glomerular Filt Rate > 60; Glucose 105 mg/dL (65-110); Potassium 3.5 mmol/L (3.4-5.0); Sodium 140 mmol/L (137-145)
[2024-04-22 07:19] LABS: INR 1.6; Prothrombin Time 19.3 Seconds (11.1-14.7)
[2024-04-22] MEDS: lisinopriL 2.5 MG TABLET PO (08:39)
[2024-04-22] MEDS: carvediloL 12.5 MG TABLET PO ×2 (08:39→20:37)
[2024-04-22] MEDS: PANTOPRAZOLE 40 MG TABLET PO ×2 (08:39→20:38)
[2024-04-22] MEDS: SACCHAROMYCES BOULARDII 250 MG CAPSULE PO ×3 (08:40→17:38)
[2024-04-22] MEDS: DIGOXIN TAB 125 MCG TABLET PO (08:40)
[2024-04-22] MEDS: POLYSACCHARIDE IRON COMPLEX 150 MG CAPSULE PO (08:40)
[2024-04-22] MEDS: POTASSIUM PHOS/SODIUM PHOS 250 MG TABLET PO ×3 (08:40→17:38)
[2024-04-22] MEDS: MAGNESIUM OXIDE 400 MG TABLET PO (08:40)
[2024-04-22] MEDS: DOCUSATE SODIUM 100 MG CAPSULE PO (08:40)
[2024-04-22] MEDS: SODIUM CHLORIDE 1 GM TABLET PO ×2 (08:41→17:42)
[2024-04-22] MEDS: polyethylene glycoL 3350 17 GM POWD.PACK PO (08:41)
[2024-04-22] MEDS: SULFAMETHOXAZOLE/TRIMETHOPRIM 800/160 MG DS TABLET 1 TAB PO (09:46)
[2024-04-22] MEDS: BUMETANIDE INJ 1 MG/4 ML VIAL IV PUSH ×2 (09:46→17:40)
--- NOTE | 2024-04-22 12:33 | P.PNIM_ITS ---
Progress Note: A&P Assessment and Plan (1) Acute exacerbation of CHF (congestive heart failure): Qualifiers: Heart failure type: unspecified Qualified Code(s): I50.9 - Heart failure, unspecified Code(s): I50.9 - Heart failure, unspecified Status: Acute Assessment and Plan: 04/18/24: * Initial BNP was 9765 on 04/13/2024 * Echo was obtained and shown normal LV systolic function with an estimated EF of 60-65%, diastolic dysfunction, severe pulmonary hypertension * She was given Lasix IV 40 mg b.i.d. over the last few days without much change in her edema * She does have 3+ pitting edema to both lower extremities and bilateral large pleural effusions today * Lasix DC and we will start Bumex 1 mg b.i.d. starting tonight * Will also give albumin 04/19/24: * Continue Bumex BID 04/20/24: * Continue Bumex and Albumin * Albumin level 2.8 today * CXR today showing marked improvement in her opacities, she still has moderate left pleural effusion and small right pleural effusion * Continue IS while awake for her atelectasis * Keep lower extremities wrapped. * Continue monitoring I and O * Plan for Thoracentesis hopefully tomorrow 04/21/24: * Continue Bumex and Albumin at 100 ml today * Albumin level 3.2 today * CXR showing marked improvement in her opacities, she still has moderate left pleural effusion and small right pleural effusion * Continue IS while awake for her atelectasis * Keep lower extremities wrapped. * Continue monitoring I and O * Plan for Thoracentesis Weds, fluid studies ordered 04/22/24: * Continue Bumex and Albumin * Currently on 1L NC, likely do do cervical spondylosis as she does not appear to be in any distress * Thoracentesis tomorrow. (2) Community acquired pneumonia: Code(s): J18.9 - Pneumonia, unspecified organism Status: Acute Assessment and Plan: 04/18/24: * Chest x-ray on 04/16/2024 showed bilateral perihilar and lower lobe pneumonia with bilateral pleural effusion more on the right side * Patient was started on azithromycin and currently on meropenem for a UTI * Patient was MRSA positive and started on vancomycin today * White blood cell count today is 20.0 * PICC line ordered for multiple antibiotics and albumin 04/19/24: * WBC count down to 13.3 * Continue IV antibiotics, may transition to oral tomorrow 04/21/24: * WBC continues to trend down, 12.3 today * Will continue Vancomycin today. Meropenem changed to Bactrim. Azithromycin discontinued today after next nose. * Will transition Vancomycin to oral antibiotics tomorrow. * She was placed on MRSA isolation 04/21/24: * WBC 13.2 today * con't Bactrim. s/p azithromycin * transition Vancomycin to PO tomorrow if WBC stabiles * She was placed on MRSA isolation 04/22/24: * white blood cell count 13.3 * continue Bactrim * vancomycin changed to doxycycline (3) Acute UTI: Code(s): N39.0 - Urinary tract infection, site not specified Status: Acute Assessment and Plan: 04/18/24: * Initial UA on 04/13/2024 showed trace urine blood, positive nitrates, trace leukocytes, 4-6 urine WBC, 4+ bacteria. * Urine culture showed ESBL * Continue meropenem 04/19/24: * No change to current treatment plan 04/20/24: * Meropenem changed to Bactrim 04/21/24: * con't Bactrim 04/22/24: * no change to current treatment plan (4) AMS (altered mental status): Qualifiers: Altered mental status type: transient alteration of awareness Qualified Code(s):
--- NOTE | 2024-04-22 12:33 | PM.IMPN ---
Progress Note: A&P Assessment and Plan (1) Acute exacerbation of CHF (congestive heart failure): Qualifiers: Heart failure type: unspecified Qualified Code(s): I50.9 - Heart failure, unspecified Code(s): I50.9 - Heart failure, unspecified Status: Acute Assessment and Plan: 04/18/24: Initial BNP was 9765 on 04/13/2024 Echo was obtained and shown normal LV systolic function with an estimated EF of 60-65%, diastolic dysfunction, severe pulmonary hypertension She was given Lasix IV 40 mg b.i.d. over the last few days without much change in her edema She does have 3+ pitting edema to both lower extremities and bilateral large pleural effusions today Lasix DC and we will start Bumex 1 mg b.i.d. starting tonight Will also give albumin 04/19/24: Continue Bumex BID 04/20/24: Continue Bumex and Albumin Albumin level 2.8 today CXR today showing marked improvement in her opacities, she still has moderate left pleural effusion and small right pleural effusion Continue IS while awake for her atelectasis Keep lower extremities wrapped. Continue monitoring I and O Plan for Thoracentesis hopefully tomorrow 04/21/24: Continue Bumex and Albumin at 100 ml today Albumin level 3.2 today CXR showing marked improvement in her opacities, she still has moderate left pleural effusion and small right pleural effusion Continue IS while awake for her atelectasis Keep lower extremities wrapped. Continue monitoring I and O Plan for Thoracentesis Weds, fluid studies ordered 04/22/24: Continue Bumex and Albumin Currently on 1L NC, likely do do cervical spondylosis as she does not appear to be in any distress Thoracentesis tomorrow. (2) Community acquired pneumonia: Code(s): J18.9 - Pneumonia, unspecified organism Status: Acute Assessment and Plan: 04/18/24: Chest x-ray on 04/16/2024 showed bilateral perihilar and lower lobe pneumonia with bilateral pleural effusion more on the right side Patient was started on azithromycin and currently on meropenem for a UTI Patient was MRSA positive and started on vancomycin today White blood cell count today is 20.0 PICC line ordered for multiple antibiotics and albumin 04/19/24: WBC count down to 13.3 Continue IV antibiotics, may transition to oral tomorrow 04/21/24: WBC continues to trend down, 12.3 today Will continue Vancomycin today. Meropenem changed to Bactrim. Azithromycin discontinued today after next nose. Will transition Vancomycin to oral antibiotics tomorrow. She was placed on MRSA isolation 04/21/24: WBC 13.2 today con't Bactrim. s/p azithromycin transition Vancomycin to PO tomorrow if WBC stabiles She was placed on MRSA isolation 04/22/24: white blood cell count 13.3 continue Bactrim vancomycin changed to doxycycline (3) Acute UTI: Code(s): N39.0 - Urinary tract infection, site not specified Status: Acute Assessment and Plan: 04/18/24: Initial UA on 04/13/2024 showed trace urine blood, positive nitrates, trace leukocytes, 4-6 urine WBC, 4+ bacteria. Urine culture showed ESBL Continue meropenem 04/19/24: No change to current treatment plan 04/20/24: Meropenem changed to Bactrim 04/21/24: con't Bactrim 04/22/24: no change to current treatment plan (4) AMS (altered mental status): Qualifiers: Altered mental status type: transient alteration of awareness Qualified Code(s): R40.4 - Transient alteration of awareness Code(s): R41.82 - Altered mental status, unspecified Status: Acute Assessment and Plan: 04/18/24: Likely secondary to receiving Neurontin for 5 doses versus acute UTI Ammonia level less than 10, sodium 138, blood sugar ranging 92-101, ABG showing respiratory alkalosis without hypercapnia, head CT from 04/13/2024 did not show any acute intracranial process. Will get brain MRI today 04/19/24: More alert today and oriented x2. Wa
[2024-04-22] MEDS: ALBUMIN HUMAN 25% 25 GM/100 ML 100 ML IVPB (13:26)
[2024-04-22] MEDS: traMADol HCL (*CRX) 50 MG TABLET PO (20:36)
[2024-04-22] MEDS: DOXYCYCLINE HYCLATE 100 MG TABLET PO (20:37)
[2024-04-22] MEDS: ACETAMINOPHEN 325 MG TABLET 650 MG PO (22:01)
[2024-04-23] VITALS (17 sets, daily range): BP systolic 134–159; BP diastolic 71–86; PULSE 50–94; RESP 18–21; TEMP 36.3–36.7; O2SAT 90–94
--- NOTE | 2024-04-23 04:31 | PCRCNOTE ---
Patient wanted mask removed 1 minute into her 1999 updraft treatment, stating she does not like the mist . Patient refused 0200 treatment as well. RN aware. Treatment to resume @ 0800.
[2024-04-23] MEDS: CENTRAL LINE FLUSH 10 ML IV PUSH ×3 (06:47→21:35)
[2024-04-23] MEDS: IPRATROPIUM 0.5 MG/ALBUTEROL SULFATE 2.5 MG AMPUL.NEB 3 ML INHALATION ×3 (07:06→20:05)
[2024-04-23 08:05] LABS: Alanine Aminotransferase 8 U/L (6-35); Albumin Level 3.3 g/dL (3.5-5.1); Alkaline Phosphatase 58 U/L (38-126); Anion Gap 6 mmol/L (4-12); Aspartate Amino Transferase 12 U/L (14-36); Basophils Percent Auto 0.3 % (0.2-1.2); Bilirubin,Total 1.4 mg/dL (0.2-1.3); Blood Urea Nitrogen 17 mg/dL (7-17); Carbon Dioxide 38 mmol/L (22-30); Chloride 97 mmol/L (98-107); Eosinophils Absolute Auto 0.1 K/mm3 (0-0.3); Eosinophils Percent Auto 0.8 % (0-4.4); Estimated CRCL calculation 44 ml/min; Estimated Glomerular Filt Rate > 60; Glucose 100 mg/dL (65-110); Hemoglobin 7.8 g/dL (12.0-15.0); Immature Granulocyte Absolute 0.09 K/mm3 (0.00-0.031); Immature Granulocyte Percent A 0.9 % (0-0.5); Lymphocytes Absolute Auto 0.97 K/mm3 (0.9-3.2); Lymphocytes Percent Auto 9.5 % (18.3-44.2); Mean Corpuscular HGB Conc 31.2 g/dl (32-36); Mean Corpuscular Hemoglobin 29.2 pg (26-34); Mean Corpuscular Volume 93.6 fl (80-100); Mean Platelet Volume 11.2 fl (7.4-10.4); Monocytes Absolute Auto 0.7 K/mm3 (0.1-0.6); Monocytes Percent Auto 6.7 % (2.6-8.5); Neutrophils Absolute Auto 8.4 K/mm3 (1.3-6.7); Neutrophils Percent Auto 81.8 % (45.5-73.1); Platelet Count Result 149 k/mm3 (150-375); Potassium 3.2 mmol/L (3.4-5.0); Red Blood Count 2.67 M/mm3 (4.2-5.4); Red Cell Distribution Width 17.7 % (11.5-14.5); Sodium 141 mmol/L (137-145); White Blood Count 10.2 K/mm3 (4.5-10.0)
[2024-04-23] MEDS: BUMETANIDE INJ 1 MG/4 ML VIAL IV PUSH ×2 (09:20→17:12)
--- NOTE | 2024-04-23 09:28 | P.PNIM_ITS ---
Progress Note: A&P Assessment and Plan (1) Acute exacerbation of CHF (congestive heart failure): Qualifiers: Heart failure type: unspecified Qualified Code(s): I50.9 - Heart failure, unspecified Code(s): I50.9 - Heart failure, unspecified Status: Acute Assessment and Plan: 04/18/24: * Initial BNP was 9765 on 04/13/2024 * Echo was obtained and shown normal LV systolic function with an estimated EF of 60-65%, diastolic dysfunction, severe pulmonary hypertension * She was given Lasix IV 40 mg b.i.d. over the last few days without much change in her edema * She does have 3+ pitting edema to both lower extremities and bilateral large pleural effusions today * Lasix DC and we will start Bumex 1 mg b.i.d. starting tonight * Will also give albumin 04/19/24: * Continue Bumex BID 04/20/24: * Continue Bumex and Albumin * Albumin level 2.8 today * CXR today showing marked improvement in her opacities, she still has moderate left pleural effusion and small right pleural effusion * Continue IS while awake for her atelectasis * Keep lower extremities wrapped. * Continue monitoring I and O * Plan for Thoracentesis hopefully tomorrow 04/21/24: * Continue Bumex and Albumin at 100 ml today * Albumin level 3.2 today * CXR showing marked improvement in her opacities, she still has moderate left pleural effusion and small right pleural effusion * Continue IS while awake for her atelectasis * Keep lower extremities wrapped. * Continue monitoring I and O * Plan for Thoracentesis Weds, fluid studies ordered 04/22/24: * Continue Bumex and Albumin * Currently on 1L NC, likely do do cervical spondylosis as she does not appear to be in any distress * Thoracentesis tomorrow. 04/23/24: * Thoracentesis today * Currently on room air (2) Community acquired pneumonia: Code(s): J18.9 - Pneumonia, unspecified organism Status: Acute Assessment and Plan: 04/18/24: * Chest x-ray on 04/16/2024 showed bilateral perihilar and lower lobe pneumonia with bilateral pleural effusion more on the right side * Patient was started on azithromycin and currently on meropenem for a UTI * Patient was MRSA positive and started on vancomycin today * White blood cell count today is 20.0 * PICC line ordered for multiple antibiotics and albumin 04/19/24: * WBC count down to 13.3 * Continue IV antibiotics, may transition to oral tomorrow 04/21/24: * WBC continues to trend down, 12.3 today * Will continue Vancomycin today. Meropenem changed to Bactrim. Azithromycin discontinued today after next nose. * Will transition Vancomycin to oral antibiotics tomorrow. * She was placed on MRSA isolation 04/21/24: * WBC 13.2 today * con't Bactrim. s/p azithromycin * transition Vancomycin to PO tomorrow if WBC stabiles * She was placed on MRSA isolation 04/22/24: * white blood cell count 13.3 * continue Bactrim * vancomycin changed to doxycycline 04/23/24: * WBC down to 10.2 today * Continue Bactrim and Doxycycline (3) Acute UTI: Code(s): N39.0 - Urinary tract infection, site not specified Status: Acute Assessment and Plan: 04/18/24: * Initial UA on 04/13/2024 showed trace urine blood, positive nitrates, trace leukocytes, 4-6 urine WBC, 4+ bacteria. * Urine culture showed ESBL * Continue meropenem 04/19/24: * No change to current treatment plan 04/20/24: * Meropenem changed to Bactrim 04/21/24: * con't Bactrim 04/22/24: * no change to current treatment
--- NOTE | 2024-04-23 09:28 | PM.IMPN ---
Progress Note: A&P Assessment and Plan (1) Acute exacerbation of CHF (congestive heart failure): Qualifiers: Heart failure type: unspecified Qualified Code(s): I50.9 - Heart failure, unspecified Code(s): I50.9 - Heart failure, unspecified Status: Acute Assessment and Plan: 04/18/24: Initial BNP was 9765 on 04/13/2024 Echo was obtained and shown normal LV systolic function with an estimated EF of 60-65%, diastolic dysfunction, severe pulmonary hypertension She was given Lasix IV 40 mg b.i.d. over the last few days without much change in her edema She does have 3+ pitting edema to both lower extremities and bilateral large pleural effusions today Lasix DC and we will start Bumex 1 mg b.i.d. starting tonight Will also give albumin 04/19/24: Continue Bumex BID 04/20/24: Continue Bumex and Albumin Albumin level 2.8 today CXR today showing marked improvement in her opacities, she still has moderate left pleural effusion and small right pleural effusion Continue IS while awake for her atelectasis Keep lower extremities wrapped. Continue monitoring I and O Plan for Thoracentesis hopefully tomorrow 04/21/24: Continue Bumex and Albumin at 100 ml today Albumin level 3.2 today CXR showing marked improvement in her opacities, she still has moderate left pleural effusion and small right pleural effusion Continue IS while awake for her atelectasis Keep lower extremities wrapped. Continue monitoring I and O Plan for Thoracentesis Weds, fluid studies ordered 04/22/24: Continue Bumex and Albumin Currently on 1L NC, likely do do cervical spondylosis as she does not appear to be in any distress Thoracentesis tomorrow. 04/23/24: Thoracentesis today Currently on room air (2) Community acquired pneumonia: Code(s): J18.9 - Pneumonia, unspecified organism Status: Acute Assessment and Plan: 04/18/24: Chest x-ray on 04/16/2024 showed bilateral perihilar and lower lobe pneumonia with bilateral pleural effusion more on the right side Patient was started on azithromycin and currently on meropenem for a UTI Patient was MRSA positive and started on vancomycin today White blood cell count today is 20.0 PICC line ordered for multiple antibiotics and albumin 04/19/24: WBC count down to 13.3 Continue IV antibiotics, may transition to oral tomorrow 04/21/24: WBC continues to trend down, 12.3 today Will continue Vancomycin today. Meropenem changed to Bactrim. Azithromycin discontinued today after next nose. Will transition Vancomycin to oral antibiotics tomorrow. She was placed on MRSA isolation 04/21/24: WBC 13.2 today con't Bactrim. s/p azithromycin transition Vancomycin to PO tomorrow if WBC stabiles She was placed on MRSA isolation 04/22/24: white blood cell count 13.3 continue Bactrim vancomycin changed to doxycycline 04/23/24: WBC down to 10.2 today Continue Bactrim and Doxycycline (3) Acute UTI: Code(s): N39.0 - Urinary tract infection, site not specified Status: Acute Assessment and Plan: 04/18/24: Initial UA on 04/13/2024 showed trace urine blood, positive nitrates, trace leukocytes, 4-6 urine WBC, 4+ bacteria. Urine culture showed ESBL Continue meropenem 04/19/24: No change to current treatment plan 04/20/24: Meropenem changed to Bactrim 04/21/24: con't Bactrim 04/22/24: no change to current treatment plan (4) AMS (altered mental status): Qualifiers: Altered mental status type: transient alteration of awareness Qualified Code(s): R40.4 - Transient alteration of awareness Code(s): R41.82 - Altered mental status, unspecified Status: Acute Assessment and Plan: 04/18/24: Likely secondary to receiving Neurontin for 5 doses versus acute UTI Ammonia level less than 10, sodium 138, blood sugar ranging 92-101, ABG showing respiratory alkalosis without hypercapnia, head CT from
[2024-04-23 11:37] LABS: pH Pleural Fluid > 7.500 (7.210-7.500)
[2024-04-23 11:55] LABS: Appearance Pleural Fluid Hazy (Clear); Pleural fluid source Pleural fluid
[2024-04-23 11:56] LABS: Color Pleural Fluid Other (Colorless)
[2024-04-23 11:57] LABS: Lymphocytes Pleural Fluid 51 %; Macrophages Pleural Fluid 9 %; Monocytes Pleural Fluid 10 %; Neutrophils Pleural Fluid 29 % (0-25); Nucleated Cell Pleural Fluid 59 /uL (0-1000); Other Cells Pleural Fluid 1 %; RBC Pleural Fluid 6000 /uL (0-10000)
[2024-04-23] MEDS: ALBUMIN HUMAN 25% 25 GM/100 ML 100 ML IVPB ×2 (12:21→20:25)
[2024-04-23] MEDS: POTASSIUM PHOS/SODIUM PHOS 250 MG TABLET PO ×2 (13:53→17:14)
[2024-04-23] MEDS: carvediloL 12.5 MG TABLET PO ×2 (13:53→20:33)
[2024-04-23] MEDS: SACCHAROMYCES BOULARDII 250 MG CAPSULE PO ×2 (13:54→17:13)
[2024-04-23] MEDS: DOXYCYCLINE HYCLATE 100 MG TABLET PO ×2 (13:54→20:29)
[2024-04-23] MEDS: lisinopriL 2.5 MG TABLET PO (13:55)
[2024-04-23] MEDS: DOCUSATE SODIUM 100 MG CAPSULE PO (13:55)
[2024-04-23] MEDS: DIGOXIN TAB 125 MCG TABLET PO (13:55)
[2024-04-23] MEDS: polyethylene glycoL 3350 17 GM POWD.PACK PO (13:56)
[2024-04-23] MEDS: SODIUM CHLORIDE 1 GM TABLET PO (17:14)
[2024-04-23] MEDS: traMADol HCL (*CRX) 50 MG TABLET PO (20:29)
[2024-04-23] MEDS: PANTOPRAZOLE 40 MG TABLET PO (20:29)
[2024-04-23] MEDS: CENTRAL LINE FLUSH 20 ML IV PUSH (21:35)
[2024-04-23 22:00] LABS: INR 1.6; Prothrombin Time 19.3 Seconds (11.1-14.7)
[2024-04-23 22:01] LABS: Partial Thromboplastin Time 41.8 Seconds (22.3-36.8)
[2024-04-24] VITALS (14 sets, daily range): BP systolic 116–179; BP diastolic 76–95; PULSE 61–91; RESP 18–20; TEMP 36.3–37; O2SAT 93–100
[2024-04-24] MEDS: IPRATROPIUM 0.5 MG/ALBUTEROL SULFATE 2.5 MG AMPUL.NEB 3 ML INHALATION ×4 (02:17→20:56)
[2024-04-24 06:10] LABS: Basophils Percent Auto 0.1 % (0.2-1.2); Eosinophils Absolute Auto 0.1 K/mm3 (0-0.3); Eosinophils Percent Auto 1.1 % (0-4.4); Hematocrit 24.7 % (37.0-47.0); Hemoglobin 7.9 g/dL (12.0-15.0); Immature Granulocyte Absolute 0.09 K/mm3 (0.00-0.031); Immature Granulocyte Percent A 0.9 % (0-0.5); Lymphocytes Absolute Auto 0.93 K/mm3 (0.9-3.2); Mean Corpuscular Hemoglobin 29.9 pg (26-34); Mean Corpuscular Volume 93.6 fl (80-100); Mean Platelet Volume 10.7 fl (7.4-10.4); Monocytes Absolute Auto 0.6 K/mm3 (0.1-0.6); Monocytes Percent Auto 5.9 % (2.6-8.5); Neutrophils Absolute Auto 8.6 K/mm3 (1.3-6.7); Platelet Count Result 150 k/mm3 (150-375); Red Blood Count 2.64 M/mm3 (4.2-5.4); Red Cell Distribution Width 17.7 % (11.5-14.5); White Blood Count 10.3 K/mm3 (4.5-10.0)
[2024-04-24 06:19] LABS: Alanine Aminotransferase 8 U/L (6-35); Albumin Level 3.5 g/dL (3.5-5.1); Alkaline Phosphatase 58 U/L (38-126); Anion Gap 7 mmol/L (4-12); Aspartate Amino Transferase 14 U/L (14-36); Bilirubin,Total 1.8 mg/dL (0.2-1.3); Blood Urea Nitrogen 16 mg/dL (7-17); Calcium 9.5 mg/dL (8.4-10.2); Carbon Dioxide 38 mmol/L (22-30); Chloride 97 mmol/L (98-107); Estimated CRCL calculation 51 ml/min; Estimated Glomerular Filt Rate > 60; Glucose 100 mg/dL (65-110); Sodium 142 mmol/L (137-145)
[2024-04-24] MEDS: CENTRAL LINE FLUSH 10 ML IV PUSH ×3 (06:53→20:49)
[2024-04-24] MEDS: CENTRAL LINE FLUSH 20 ML IV PUSH (06:53)
[2024-04-24] MEDS: ALBUMIN HUMAN 25% 25 GM/100 ML 100 ML IVPB ×2 (09:55→20:48)
[2024-04-24] MEDS: polyethylene glycoL 3350 17 GM POWD.PACK PO (09:56)
[2024-04-24] MEDS: lisinopriL 2.5 MG TABLET PO (09:56)
[2024-04-24] MEDS: DOCUSATE SODIUM 100 MG CAPSULE PO (09:56)
[2024-04-24] MEDS: PANTOPRAZOLE 40 MG TABLET PO ×2 (09:56→20:47)
[2024-04-24] MEDS: POTASSIUM PHOS/SODIUM PHOS 250 MG TABLET PO ×3 (09:56→16:54)
[2024-04-24] MEDS: SODIUM CHLORIDE 1 GM TABLET PO ×2 (09:56→16:54)
[2024-04-24] MEDS: DOXYCYCLINE HYCLATE 100 MG TABLET PO ×2 (09:56→20:48)
[2024-04-24] MEDS: carvediloL 12.5 MG TABLET PO ×2 (09:57→20:47)
[2024-04-24] MEDS: DIGOXIN TAB 125 MCG TABLET PO (09:58)
[2024-04-24] MEDS: SACCHAROMYCES BOULARDII 250 MG CAPSULE PO ×3 (09:58→16:54)
[2024-04-24] MEDS: BUMETANIDE INJ 1 MG/4 ML VIAL IV PUSH (10:09)
[2024-04-24] MEDS: POLYSACCHARIDE IRON COMPLEX 150 MG CAPSULE PO (12:49)
[2024-04-24] MEDS: MAGNESIUM OXIDE 400 MG TABLET PO (12:50)
--- NOTE | 2024-04-24 15:47 | P.PNIM_ITS ---
Progress Note: A&P Assessment and Plan (1) Acute exacerbation of CHF (congestive heart failure): Qualifiers: Heart failure type: unspecified Qualified Code(s): I50.9 - Heart failure, unspecified Code(s): I50.9 - Heart failure, unspecified Status: Acute Assessment and Plan: 04/18/24: * Initial BNP was 9765 on 04/13/2024 * Echo was obtained and shown normal LV systolic function with an estimated EF of 60-65%, diastolic dysfunction, severe pulmonary hypertension * She was given Lasix IV 40 mg b.i.d. over the last few days without much change in her edema * She does have 3+ pitting edema to both lower extremities and bilateral large pleural effusions today * Lasix DC and we will start Bumex 1 mg b.i.d. starting tonight * Will also give albumin 04/19/24: * Continue Bumex BID 04/20/24: * Continue Bumex and Albumin * Albumin level 2.8 today * CXR today showing marked improvement in her opacities, she still has moderate left pleural effusion and small right pleural effusion * Continue IS while awake for her atelectasis * Keep lower extremities wrapped. * Continue monitoring I and O * Plan for Thoracentesis hopefully tomorrow 04/21/24: * Continue Bumex and Albumin at 100 ml today * Albumin level 3.2 today * CXR showing marked improvement in her opacities, she still has moderate left pleural effusion and small right pleural effusion * Continue IS while awake for her atelectasis * Keep lower extremities wrapped. * Continue monitoring I and O * Plan for Thoracentesis Weds, fluid studies ordered 04/22/24: * Continue Bumex and Albumin * Currently on 1L NC, likely do do cervical spondylosis as she does not appear to be in any distress * Thoracentesis tomorrow. 04/23/24: * Thoracentesis today * Currently on room air 04/24/24: * Change to oral diuretics today * Case coordination for palliative care/hospice (2) Community acquired pneumonia: Code(s): J18.9 - Pneumonia, unspecified organism Status: Acute Assessment and Plan: 04/18/24: * Chest x-ray on 04/16/2024 showed bilateral perihilar and lower lobe pneumonia with bilateral pleural effusion more on the right side * Patient was started on azithromycin and currently on meropenem for a UTI * Patient was MRSA positive and started on vancomycin today * White blood cell count today is 20.0 * PICC line ordered for multiple antibiotics and albumin 04/19/24: * WBC count down to 13.3 * Continue IV antibiotics, may transition to oral tomorrow 04/21/24: * WBC continues to trend down, 12.3 today * Will continue Vancomycin today. Meropenem changed to Bactrim. Azithromycin di scontinued today after next nose. * Will transition Vancomycin to oral antibiotics tomorrow. * She was placed on MRSA isolation 04/21/24: * WBC 13.2 today * con't Bactrim. s/p azithromycin * transition Vancomycin to PO tomorrow if WBC stabiles * She was placed on MRSA isolation 04/22/24: * white blood cell count 13.3 * continue Bactrim * vancomycin changed to doxycycline 04/23/24: * WBC down to 10.2 today * Continue Bactrim and Doxycycline 04/24/24: * WBC 10.3 * no change to current treatment plan (3) Acute UTI: Code(s): N39.0 - Urinary tract infection, site not specified Status: Acute Assessment and Plan: 04/18/24: * Initial UA on 04/13/2024 showed trace urine blood, positive nitrates, trace leukocytes, 4-6 urine WBC, 4+ bacteria. * Urine culture showed ESBL * Continue meropenem 04/19/24: * N
--- NOTE | 2024-04-24 15:47 | PM.IMPN ---
Progress Note: A&P Assessment and Plan (1) Acute exacerbation of CHF (congestive heart failure): Qualifiers: Heart failure type: unspecified Qualified Code(s): I50.9 - Heart failure, unspecified Code(s): I50.9 - Heart failure, unspecified Status: Acute Assessment and Plan: 04/18/24: Initial BNP was 9765 on 04/13/2024 Echo was obtained and shown normal LV systolic function with an estimated EF of 60-65%, diastolic dysfunction, severe pulmonary hypertension She was given Lasix IV 40 mg b.i.d. over the last few days without much change in her edema She does have 3+ pitting edema to both lower extremities and bilateral large pleural effusions today Lasix DC and we will start Bumex 1 mg b.i.d. starting tonight Will also give albumin 04/19/24: Continue Bumex BID 04/20/24: Continue Bumex and Albumin Albumin level 2.8 today CXR today showing marked improvement in her opacities, she still has moderate left pleural effusion and small right pleural effusion Continue IS while awake for her atelectasis Keep lower extremities wrapped. Continue monitoring I and O Plan for Thoracentesis hopefully tomorrow 04/21/24: Continue Bumex and Albumin at 100 ml today Albumin level 3.2 today CXR showing marked improvement in her opacities, she still has moderate left pleural effusion and small right pleural effusion Continue IS while awake for her atelectasis Keep lower extremities wrapped. Continue monitoring I and O Plan for Thoracentesis Weds, fluid studies ordered 04/22/24: Continue Bumex and Albumin Currently on 1L NC, likely do do cervical spondylosis as she does not appear to be in any distress Thoracentesis tomorrow. 04/23/24: Thoracentesis today Currently on room air 04/24/24: Change to oral diuretics today Case coordination for palliative care/hospice (2) Community acquired pneumonia: Code(s): J18.9 - Pneumonia, unspecified organism Status: Acute Assessment and Plan: 04/18/24: Chest x-ray on 04/16/2024 showed bilateral perihilar and lower lobe pneumonia with bilateral pleural effusion more on the right side Patient was started on azithromycin and currently on meropenem for a UTI Patient was MRSA positive and started on vancomycin today White blood cell count today is 20.0 PICC line ordered for multiple antibiotics and albumin 04/19/24: WBC count down to 13.3 Continue IV antibiotics, may transition to oral tomorrow 04/21/24: WBC continues to trend down, 12.3 today Will continue Vancomycin today. Meropenem changed to Bactrim. Azithromycin discontinued today after next nose. Will transition Vancomycin to oral antibiotics tomorrow. She was placed on MRSA isolation 04/21/24: WBC 13.2 today con't Bactrim. s/p azithromycin transition Vancomycin to PO tomorrow if WBC stabiles She was placed on MRSA isolation 04/22/24: white blood cell count 13.3 continue Bactrim vancomycin changed to doxycycline 04/23/24: WBC down to 10.2 today Continue Bactrim and Doxycycline 04/24/24: WBC 10.3 no change to current treatment plan (3) Acute UTI: Code(s): N39.0 - Urinary tract infection, site not specified Status: Acute Assessment and Plan: 04/18/24: Initial UA on 04/13/2024 showed trace urine blood, positive nitrates, trace leukocytes, 4-6 urine WBC, 4+ bacteria. Urine culture showed ESBL Continue meropenem 04/19/24: No change to current treatment plan 04/20/24: Meropenem changed to Bactrim 04/21/24: con't Bactrim 04/22/24: no change to current treatment plan (4) AMS (altered mental status): Qualifiers: Altered mental status type: transient alteration of awareness Qualified Code(s): R40.4 - Transient alteration of awareness Code(s): R41.82 - Altered mental status, unspecified Status: Acute Assessment and Plan: 04/18/24: Likely secondary to receiving Neurontin for 5 doses vers
[2024-04-24] MEDS: DABIGATRAN ETEXILATE 150 MG CAPSULE PO (20:47)
[2024-04-25] VITALS (7 sets, daily range): BP systolic 152; BP diastolic 67; PULSE 67–78; RESP 16–20; TEMP 36.7; O2SAT 95
[2024-04-25] MEDS: IPRATROPIUM 0.5 MG/ALBUTEROL SULFATE 2.5 MG AMPUL.NEB 3 ML INHALATION ×3 (02:20→13:55)
[2024-04-25 05:10] LABS: Basophils Percent Auto 0.2 % (0.2-1.2); Eosinophils Absolute Auto 0.1 K/mm3 (0-0.3); Eosinophils Percent Auto 0.7 % (0-4.4); Hematocrit 24.5 % (37.0-47.0); Hemoglobin 7.6 g/dL (12.0-15.0); Immature Granulocyte Absolute 0.09 K/mm3 (0.00-0.031); Immature Granulocyte Percent A 0.8 % (0-0.5); Lymphocytes Absolute Auto 1.03 K/mm3 (0.9-3.2); Lymphocytes Percent Auto 9.4 % (18.3-44.2); Mean Corpuscular Hemoglobin 28.9 pg (26-34); Mean Corpuscular Volume 93.2 fl (80-100); Mean Platelet Volume 10.6 fl (7.4-10.4); Monocytes Absolute Auto 0.6 K/mm3 (0.1-0.6); Monocytes Percent Auto 5.1 % (2.6-8.5); Neutrophils Absolute Auto 9.2 K/mm3 (1.3-6.7); Neutrophils Percent Auto 83.8 % (45.5-73.1); Platelet Count Result 163 k/mm3 (150-375); Red Blood Count 2.63 M/mm3 (4.2-5.4); Red Cell Distribution Width 17.8 % (11.5-14.5)
[2024-04-25] MEDS: traMADol HCL (*CRX) 50 MG TABLET PO (05:13)
[2024-04-25] MEDS: CENTRAL LINE FLUSH 10 ML IV PUSH (05:13)
[2024-04-25 05:22] LABS: Alanine Aminotransferase 8 U/L (6-35); Albumin Level 3.6 g/dL (3.5-5.1); Alkaline Phosphatase 55 U/L (38-126); Anion Gap 8 mmol/L (4-12); Aspartate Amino Transferase 15 U/L (14-36); Bilirubin,Total 2.1 mg/dL (0.2-1.3); Blood Urea Nitrogen 19 mg/dL (7-17); Calcium 9.4 mg/dL (8.4-10.2); Carbon Dioxide 36 mmol/L (22-30); Chloride 98 mmol/L (98-107); Estimated CRCL calculation 44 ml/min; Estimated Glomerular Filt Rate > 60; Glucose 100 mg/dL (65-110); Potassium 2.6 mmol/L (3.4-5.0); Sodium 142 mmol/L (137-145)
[2024-04-25 05:48] LABS: Magnesium 1.7 mg/dL (1.6-2.3)
[2024-04-25] MEDS: POTASSIUM CHLORIDE 20 MEQ PACKET (FOR LIQUID) 40 MEQ PO (06:09)
[2024-04-25] MEDS: ALBUMIN HUMAN 25% 25 GM/100 ML 100 ML IVPB (09:01)
[2024-04-25] MEDS: SACCHAROMYCES BOULARDII 250 MG CAPSULE PO ×2 (09:01→12:25)
[2024-04-25] MEDS: DOCUSATE SODIUM 100 MG CAPSULE PO (09:01)
[2024-04-25] MEDS: DABIGATRAN ETEXILATE 150 MG CAPSULE PO (09:01)
[2024-04-25] MEDS: polyethylene glycoL 3350 17 GM POWD.PACK PO (09:01)
[2024-04-25] MEDS: DIGOXIN TAB 125 MCG TABLET PO (09:02)
[2024-04-25] MEDS: POTASSIUM PHOS/SODIUM PHOS 250 MG TABLET PO ×2 (09:02→12:25)
[2024-04-25] MEDS: DOXYCYCLINE HYCLATE 100 MG TABLET PO (09:02)
[2024-04-25] MEDS: PANTOPRAZOLE 40 MG TABLET PO (09:02)
[2024-04-25] MEDS: SODIUM CHLORIDE 1 GM TABLET PO (09:02)
[2024-04-25] MEDS: carvediloL 12.5 MG TABLET PO (09:02)
[2024-04-25] MEDS: lisinopriL 2.5 MG TABLET PO (09:03)
[2024-04-25] MEDS: ONDANSETRON INJ 4 MG/2 ML VIAL IV PUSH (11:02)
--- NOTE | 2024-04-25 11:59 | PM.DS ---
DS: Admitting Diagnosis Discharge Date 04/25/24 Admitting Diagnosis Acute exacerbation of CHF Community-acquired pneumonia Acute UTI Altered mental status Pleural effusion Edema due to hypoalbuminemia Hypertension Atrial fibrillation Protein calorie malnutrition DS: Discharge Diagnosis Discharge Diagnosis (1) Acute exacerbation of CHF (congestive heart failure): Qualifiers: Heart failure type: unspecified Qualified Code(s): I50.9 - Heart failure, unspecified Code(s): I50.9 - Heart failure, unspecified Status: Acute (2) Community acquired pneumonia: Code(s): J18.9 - Pneumonia, unspecified organism Status: Acute (3) Acute UTI: Code(s): N39.0 - Urinary tract infection, site not specified Status: Acute (4) AMS (altered mental status): Qualifiers: Altered mental status type: transient alteration of awareness Qualified Code(s): R40.4 - Transient alteration of awareness Code(s): R41.82 - Altered mental status, unspecified Status: Acute (5) Pleural effusion: Code(s): J90 - Pleural effusion, not elsewhere classified Status: Acute (6) Edema due to hypoalbuminemia: Code(s): E88.09 - Other disorders of plasma-protein metabolism, not elsewhere classified Status: Acute (7) Hypertension: Code(s): I10 - Essential (primary) hypertension Status: Chronic (8) Atrial fibrillation: Code(s): I48.91 - Unspecified atrial fibrillation Status: Chronic (9) Protein calorie malnutrition: Code(s): E46 - Unspecified protein-calorie malnutrition Status: Acute DS: Summary Hospital Course Reason for hospitalization: Acute exacerbation of CHF Community-acquired pneumonia Acute UTI Altered mental status Pleural effusion Edema due to hypoalbuminemia Hypertension Atrial fibrillation Protein calorie malnutrition Hospital Course: This is an 88-year-old female with a significant past medical history of AFib, CHF, heart disease, hypertension who was a direct admit from [facility] for bilateral pleural effusion, community-acquired pneumonia, altered mental status, and acute urinary tract infection. Patient originally presented to [facility] on 04/14/2024 with confusion and weakness. Workup at [facility] revealed a urinary tract infection with ESBL and being treated for community-acquired pneumonia per chest x-ray. Patient was started on meropenem and azithromycin. White blood cell count was increasing over the course of her stay at [place]. White blood cell count went from 17.6 up to 20.0 today. MRSA was positive and we added vancomycin today. Chest x-ray obtained today showed worsening bilateral pleural effusions. We went ahead and got a chest CT shown large bilateral pleural effusions with complete bilateral lower lobe atelectasis and numerous spinal compression fractures which appear to be old. Patient also has altered mental status and was thought to be due to the use of Neurontin for 5 doses however she is still confused today. We checked an ABG which showed respiratory alkalosis, ammonia level was less than 10, sodium level was normal at 138. She had a head CT at [facility] which was negative for any acute intracranial process. Blood cultures are showing no growth to date on preliminary read. She also had an echocardiogram done on 04/16/2024 which shown normal LV systolic function with an estimated EF of 60 is 65%, diastolic dysfunction, severe pulmonary hypertension with an estimated pulmonary arterial pressure of 64 mmHg. Discussed findings with the POA Maueren and the need for transfer. Maureen was agreeable to transfer to [facility] for potential bilateral thoracentesis with Interventional Radiology. Spoke with Dr. Hinton who accepted the patient to [place]. Patient had thoracentesis on 04/23/2024 which showed significant improvement in her chest x-ray. She fi
[2024-04-25] MEDS: POLYSACCHARIDE IRON COMPLEX 150 MG CAPSULE PO (12:25)
[2024-04-25] MEDS: MAGNESIUM OXIDE 400 MG TABLET PO (12:25)
[2024-04-25] MEDS: POTASSIUM CHLORIDE 20 MEQ ER TABLET 40 MEQ PO (14:21)
[2024-04-25] MEDS: NEOMYCIN/POLYMYXIN/BACITRACIN OINTMENT PACKET 1 PACKET (14:21)
[2024-04-30 20:19] LABS: Albumin Pleural Fluid 1.1 g/dL; Amylase, Pleural Fluid <10 U/L; Glucose Pleural Fluid 107 mg/dL; LDH Pleural Fluid 64 U/L; Total Protein Pleural Fluid <3.0 g/dL
== END 2024-04-25 14:25 | DRG 291 ==
PROVIDERS: Internal Medicine; Admitting Provider Family Medicine; PCP Internal Medicine; Visit Provider Nurse Practitioner Acute Care
DX: I11.0 Hypertensive heart disease with heart failure (principal); J18.9 Pneumonia, unspecified organism; J90 Pleural effusion, not elsewhere classified; E46 Unspecified protein-calorie malnutrition; N39.0 Urinary tract infection, site not specified; I48.20 Chronic atrial fibrillation, unspecified; I50.9 Heart failure, unspecified; I27.20 Pulmonary hypertension, unspecified; E88.09 Other disorders of plasma-protein metabolism, not elsewhere classified; Z22.322 Carrier or suspected carrier of Methicillin resistant Staphylococcus aureus; Z96.641 Presence of right artificial hip joint; Z68.27 Body mass index [BMI] 27.0-27.9, adult
CPT/HCPCS: 32555; 36415; 36569; 70551; 71045; 80053; 80202; 82040; 82042; 82150; 82247; 82465; 82945; 82947; 83615; 83735; 83986; 84132; 84157; 84311; 84478; 85025; 85610; 85730; 87015; 87116; 87205; 87206; 88108; 88305; 89051; 94640; A9270; J0456; J1650; J1939; J2185; J2405; J3370; J3475; P9047

== ENCOUNTER 2024-05-07 07:22 | Outpatient (NON) | payer MEDICARE, SELFPAY ==
[2024-05-07 08:28] LABS: Add Urine Microscopic? YES; Appearance Urine Clear (Clear); Bacteria Urine Trace /hpf; Bilirubin Urine Negative (Negative); Blood Urine 1+ (Negative); Color Urine Yellow (Yellow); Glucose Urine UA Negative (Negative); Ketones Urine Negative (Negative); Leukocyte Esterase Ur Trace LEU/UL (Negative); Nitrate Urine Negative (Negative); Protein Urine Negative (Negative); RBC Urine 0-2 /hpf (0-2); Specific Grav Ur 1.025 (1.010-1.020); Squamous Epithelial Cell Urine Moderate /hpf (Few); Urobilinogen Urine 0.2 mg/dL (0.2-1.0); WBC Urine 0-3 /hpf (0-3)
== END 2024-05-07 07:23 | disposition home or self-care (01) ==
LOC: CHSLAB 07:23
PROVIDERS: Visit Provider Internal Medicine
DX: N39.0 Urinary tract infection, site not specified (principal)
CPT/HCPCS: 81001